=== PATIENT | female | born 1960 | race Caucasian/White ===

== ENCOUNTER 2016-12-27 09:34 | Observation (INO) | payer OTHER ==
[~2016-12-27] VITALS: Ht 160 cm; Wt 48.0 kg
[2016-12-27 09:57] VITALS: BP 120/75; PULSE 95; RESP 21; O2SAT 100
--- NOTE | 2016-12-27 09:57 | ED.REPORT ---
HPI-General Illness Date of Service December 27, 2016 ED Provider: The patient is a 56 year old female with history of chronic pain related to ankylosing spondylitis (currently taking 30 mg oxycodone QID), and diabetes mellitus, who presents to the emergency department complaining of worsening constipation. The patient was here this morning for a GI consultation and was sent to the emergency department for further evaluation. She has been dealing with constipation for some time now but it seems to be getting worse. She normally uses milk of magnesia once a week and Dulcolax once daily, but this regimen recently has not been working. She took Epson salts on Saturday and yesterday and was able to have small bowel movements. She tried manual disimpaction and a fleet enema yesterday and she passed some "runny stools." She still feels like there is a small piece of stool stuck. Over the last few months she has also noticed nausea, vomiting, decreased appetite, weight loss, abdominal pain, kidney pain, difficulty urinating, dizziness, chills, dry cough , generalized weakness and fatigue. The patient is unable to keep any food or liquids down. She denies fever. She has been worked up for these symptoms. She has had an abdominal CT scan that showed constipation. Nursing Notes Stated Complaint: DIZZY/FATIGUE/ABDOMINAL PAIN Nursing Notes Reviewed: Yes Allergies: Coded Allergies: guaifenesin (Verified Allergy, Severe, Shortness of Breath, 12/27/16) Penicillins (Verified Allergy, Intermediate, Rash, 12/27/16) but no itch, amoxicillin ok acetaminophen (Verified Allergy, Intermediate, Shortness of Breath, ) aspirin (Verified Allergy, Intermediate, Shortness of Breath, 12/27/16) celecoxib (Verified Allergy, Intermediate, Shortness of Breath, 12/27/16) cyclobenzaprine (Verified Allergy, Intermediate, Shortness of Breath, 12/27) fluconazole (Verified Allergy, Intermediate, Shortness of Breath, 12/27/16) hydrocodone (Verified Allergy, Intermediate, Shortness of Breath, 12/27/16) ibuprofen (Verified Allergy, Intermediate, Shortness of Breath, 12/27/16) ketorolac (Verified Allergy, Intermediate, Shortness of Breath, 12/27/16) naproxen (Verified Allergy, Intermediate, Shortness of Breath, 12/27/16) phenylpropanolamine (Verified Allergy, Intermediate, Shortness of Breath, 12/27/16) propoxyphene (Verified Allergy, Intermediate, Nausea, 12/27/16) General Time Seen by MD: 09:56 Chief Complaint Vomiting, Other (nausea) Hx Obtained From: Patient Arrived By: Walk-in Sudden in Onset?: No Onset Occurred: More than a week ago... 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 Barakat Past Medical History Ankylosing spondylitis Chronic pain Diabetes mellitus Family History Noncontributory Smoking History Never Smoker Social History Alcohol Use: Denies alcohol use Drug Use: Denies drug use Ambulatory Status Independent Review of Systems Full Review of Systems Constitutional: Reports: Chills, Fatigue, Recent wt loss, Weakness - generalized, Denies: Fever Respiratory: Reports: Non-productive cough GI: Reports: Abdominal pain, Anorexia, Constipation, Nausea, Vomiting Female: Reports: Flank pain Musculoskeletal: Reports: Back pain Neurologic: Reports: Dizziness, Weakness Complete sys rev & neg: except as marked. Physical Exam Vital Signs Vital Signs Date Time Temp Pulse Resp B/P Pulse Ox O2 Delivery O2 Flow Rate FiO2 12/27/16 13:36 87 16 140/77 100 Room Air 12/27/16 12:01 36.7 85 22 140/77 100 Room Air 12/27/16 09:57 37.4 95 21 120/75 100 Room Air Initial VS: Reviewed Head / Eyes: Atraumatic, Normocephalic, PERRL Neck: Supple, Non-tender, Full range of motion Respiratory: Breath sounds normal, Clear to auscultation, No respiratory distress Lymphatic: No lymphadenopathy Extremities: Vascular intact, Neuro intact, No swelling, No tenderness Skin: Warm, Dry, No cyanosis Neurologic: Alert, Oriented, Nonfocal Psychiatric: Mood/affect normal, Behavior normal, Normal thought content General/Constitutional: Awake, Alert, Cooperative Appearance / Presentation: Positive: Cachectic, In pain, Pale ENT: Atraumatic, Airway patent, Mucous membranes moist Cardiovascular: Regular rhythm, Heart sounds NL, No gallop, No murmurs, No rubs , Cap refill not delayed, Peripheral circulation NL, Pulses = bilaterally Her heart rate jumps up 30 points just moving around in bed. Abdomen: Atraumatic, Soft, No guarding, No rebound, No distention, No hernia, No palpable mass, No pulsatile mass Tenderness/Guarding/Rebound: Positive: Tender diffuse Bowel Sounds / Distention: Positive: Bowel sounds hypoactive Back: Full range of motion Flank / Spine / Paraspinal: Positive: Flank tender bilateral She is not tender at T12. Rectum / Perineum: Atraumatic, No gross blood, No fecal impaction Interpretation & Diagnostics 11/08 ABD US that showed a normal gallbladder. 11/30/2016 CT ABD PELVIS W/ CONTRAST: 1. Moderate left hydronephrosis. 2. Large amount of colonic stool. 3. Normal appendix. 4. Indeterminate left adrenal nodule, which could be further assessed with adrenal protocol MRI, if clinically indicated. 5. Diffuse fatty atrophy of the pancreas. 11/30 she had a HIDA scan that showed decreased gallbladder ejection fraction. 12/03/2016 CT KUB: 1. Small nonobstructing right inferior renal calculus. No additional renal or ureteral calculi are present. No hydronephrosis is evident. Small parapelvic cysts on the left are noted. 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 3. T12 compression deformity is age indeterminate, but appears to be acute or subacute. The need for dedicated MR imaging of the spine may be determined clinically. 4. Degenerative changes and bony fusion of the imaged spine are suggestive of ankylosing spondylitis and clinical correlation is recommended. 5. Constipation. No bowel obstruction. 6. Small hiatal hernia. 7. Dense fluid within the gallbladder may be related to gallbladder sludge. Lab Results Interpretation Result Diagram: 12/27/16 1100 12/27/16 1055 Test 12/27/16 10:55 12/27/16 11:00 12/27/16 11:02 12/27/16 13:04 Sodium Level 135mEq/L (134-144) Potassium Level 3.5mEq/L (3.5-5.2) Chloride Level 93mEq/L (97-108) Carbon Dioxide Level 24mmol/L (18-29) Blood Urea Nitrogen 5mg/dL (6-24) Creatinine 0.41mg/dL (0.57-1.00) Estimat Glomerular Filtration Rate 230mL/min (>59) Glucose Level 155mg/dL (60-99) Lactic Acid Level 1.1mmol/L (0.4-2.0) Calcium Level 9.4mg/dL (8.5-10.1) Magnesium Level 1.9mg/dL (1.6-2.6) Total Bilirubin 0.2mg/dL (0.0-1.2) Aspartate Amino Transf (AST/SGOT) 14U/L (0-50) Alanine Aminotransferase (ALT/SGPT) 12U/L (0-32) Alkaline Phosphatase 86U/L (25-150) Total Protein 7.4g/dL (6.4-8.4) Albumin 4.2g/dL (3.4-5.0) Lipase 7U/L (13-60) Thyroid Stimulating Hormone (TSH) 0.753uIU/mL (0.450-4.500) Free Thyroxine 1.27ng/dL (0.82-1.77) White Blood Count 6.2th/mm3 (3.8-10.1) Red Blood Count 4.20mil/mm3 (3.90-5.20) Hemoglobin 12.2g/dL (12.0-15.6) Hematocrit 33.9% (35.0-46.0) Mean Corpuscular Volume 80.7fL (81-100) Mean Corpuscular Hemoglobin 29.0pg (27.0-35.0) Mean Corpuscular Hemoglobin Concent 36.0% (32.0-37.0) Red Cell Distribution Width 13.2% (12.3-15.4) Platelet Count 337bil/L (150-400) Neutrophils (%) (Auto) 75.8% (40-74) Lymphocytes (%) (Auto) 18.0% (14-46) Monocytes (%) (Auto) 5.5% (4-12) Eosinophils (%) (Auto) 0.3% (0-5) Basophils (%) (Auto) 0.2% (0-3) Urine Color Yellow (YELLOW) Urine Appearance Hazy (CLEAR,HAZY) Urine pH 5.0 (5.0-8.0) Urine Specific [place] 1.030 (1.003-1.035) Urine Protein Tracemg/dL (NEG,TRACE) Urine Glucose (UA) Negativemg/dL (NEGATIVE) Urine Ketones 40mg/dL (NEGATIVE) Urine Occult Blood Negative (NEGATIVE) Urine Nitrite Negative (NEGATIVE) Urine Bilirubin Negative (NEGATIVE) Urine Urobilinogen Normalmg/dL (NORMAL) Urine Leukocyte Esterase Negative (NEGATIVE) Urine RBC 0-2/hpf (0-2) Urine WBC 0-5/hpf (0-5) Urine Epithelial Cells Occasional/hpf (NONE-MOD) Urine Crystals None seen (NONE SEEN) Urine Bacteria Few/hpf (NONE-FEW) Urine Hyaline Casts 5/20/lpf (NONE) Urine Granular Casts None seen (NONE SEEN) Urine Waxy Casts None seen (NONE SEEN) Urine Red Blood Cell Casts None seen (NONE SEEN) Urine White Blood Cell Casts None seen (NONE SEEN) Urine Mucus Present (None Seen) Urine Trichomonas None seen (NONE SEEN) Urine Yeast None (NONE SEEN) Urinalysis Comment None Urine Culture Reflexed Not indicated Hold Urine Received (Received) ECG Interpretation ECG Interpretation: Sinus rhythm with a rate of 78 Normal EKG Time: 11:11 Interpreted by: ED physician X-Ray Abdominal Interpretation IMPRESSION: 1. Nonspecific bowel gas pattern with a few scattered small bowel air-fluid levels but with gas demonstrated throughout the colon including the rectum. The findings may represent a mild ileus or gastroenteritis. Dictated by: Yeyo Adams M.D. on 12/27/2016 at 11:16 Interpretation / Wet Read by: Interpret - Radiologist Re-Eval/Medical Decision Med Decision/Clinical Course 56-year-old woman presents with abdominal pain increasing for the last 4 months. Initially it was constipation has had 2 CT scans abdominal films and a HIDA scan as well as an ultrasound done [facility]. Ultrasound was normal HIDA scan suggested low functioning gallbladder with an ejection fraction of 35%. CT scans showed some mild hydronephrosis but no masses or other significant findings she did have quite a bit of stool has since taken appropriate measures and x-rays today do not indicate significant stool. She does remain in dramatic pain in the costovertebral angles as well as the abdomen however she does not have rebound or guarding. Today she is significantly orthostatic her heart rate is 80 laying down it goes up into the 120 range simply moving up to the bed initially. After a liter of fluid, resting heart rate is down to 70 per goes up to 110 getting up to bedside commode. We will obtain urine and stool cultures. Admit to the hospitalists with diagnosis of abdominal pain dehydration and GI consult. As she has had [address] scans within the last month is are not repeated today Source of Hx: Old records Time of Eval: 12:44 Patient Status: Condition unchanged Re-Evaluation/Progress Note: Patient remains significantly tender throughout her entire abdomen again no rebound or guarding. She did have CT scans within the last month done over at [facility] but did not suggest underlying severe pathology. Acute abdominal series today does not suggest that she is constipated. She does continue to have significant pain. She remains significantly tachycardic. She has had a total of 3 mg of Dilaudid at this point and that has helped minimally. On the fact that it had minimal effect suggests that this is not acute narcotic withdrawal. With her continued weight loss estimated at 5-8 pounds in the last few weeks (4-8% of total body weight), persistent nausea that has not been controlled with Zofran, persistent tachycardia, and persistent diarrhea, I would like to admit her to the hospital for continued hydration and pain control and additional GI workup. Consultation #1: Referral / Consult Name: Bob Barakat MD Call Returned at: 12:47 Pathologist: Will see patient Note: Dr Barakat findings concerns. As a GI consult as an outpatient was an expert of her workup will ask that he consult now that she is being admitted and he agrees. Consultation #2: Referral / Consult Name: Luis Miguel Loredo MD Consulted With: Hospitalist Requested Call at: 14:10 Call Returned at: 14:25 Pathologist: Will see patient, Agrees with eval, Agrees with plan, Accepts admit Counseled Regarding: Diagnosis, Lab results, Need for admission Discharge & Departure Primary Impression: Abdominal pain Abdominal location: generalized Qualified Code: R10.84 - Generalized abdominal pain Additional Impressions: Diarrhea Diarrhea type: unspecified type Qualified Code: R19.7 - Diarrhea, unspecified Orthostasis Disposition: ADMITTED TO HOSPITAL Discharge Condition All VS Reviewed: Yes Condition: Stable Referrals: Bob Olvera MD (PCP) Bob Barakat MD Scribe Attestation Portions of this note were transcribed by Justa Cortés. I, Dr. Wilson personally performed the history, physical exam and medical decision-making; I reviewed and confirmed the accuracy of the information in the transcribed note. Signed by: Yamile Kincaid, 12/27/2016 at 1435. copies to: Bbo Barakat MD; Bob Olvera MD, Shawna L MD December 27, 2016 09:57 Justa Cortés December 27, 2016 10:15
[2016-12-27] MEDS ORDERED: HYDROmorphone 1 mg/mL Inj IVPUSH ONE ×2 (10:45→12:55)
[2016-12-27] MEDS ORDERED: Ondansetron 2 mg/mL 2 mL Inj IVPUSH ONE (10:45)
[2016-12-27] MEDS ORDERED: 0.9% Sodium Chloride 1,000 ML IV ONE ×3 (10:45→12:54)
[2016-12-27 11:07] LABS: BASOPHILS % (AUTO) 0.2 % (0-3); EOSINOPHILS % (AUTO) 0.3 % (0-5); MONOCYTES % (AUTO) 5.5 % (4-12); Mean Corpuscular Volume 80.7 fL (81-100); NEUTROPHILS % (AUTO) 75.8 % (40-74); Platelet Count 337 bil/L (150-400)
[2016-12-27 11:34] LABS: APPEARANCE,URINE HAZY (CLEAR,HAZY); COLOR,URINE YELLOW (YELLOW)
[2016-12-27 11:35] LABS: OCCULT BLOOD,URINE NEGATIVE (NEGATIVE); UROBILINOGEN,URINE NORMAL (NORMAL)
[2016-12-27 11:41] LABS: Magnesium 1.9 mg/dL (1.6-2.6)
[2016-12-27] MEDS: HYDROmorphone 1 mg/mL Inj IVPUSH PRN ×3 (11:58→23:59)
[2016-12-27 12:01] VITALS: BP 140/77; PULSE 85; RESP 22; O2SAT 100
--- NOTE | 2016-12-27 12:20 | DRSVH ---
PROCEDURE: X-RAY ACUTE ABDOMINAL SERIES ([id number]) INDICATIONS: abd pain TECHNIQUE: One view chest and two views of the abdomen were acquired. COMPARISON: None. FINDINGS: Surgical changes and devices: None. Chest: Lungs are clear. Heart size is normal. No pleural effusions. No pneumoperitoneum. Abdomen: Bowel gas pattern is nonspecific, with gas demonstrated in small and large bowel loops incl uding the rectum. There are a few scattered small bowel air-fluid levels. No suspicious calcificati ons. Bones: No suspicious bony lesions. IMPRESSION: 1. Nonspecific bowel gas pattern with a few scattered small bowel air-fluid levels but with gas demo nstrated throughout the colon including the rectum. The findings may represent a mild ileus or gastr oenteritis. Dictated by: Yeyo Adams M.D. on 12/27/2016 at 11:16 Approved by: Yeyo Adams M.D. on 12/27/2016 at 11:18
[2016-12-27] MEDS ORDERED: HYDROmorphone 1 mg/mL Inj IVPUSH PRN (12:55)
[2016-12-27] MEDS: Promethazine Inj 50 MG in 0.9% Sodium Chloride-Pha MIX 100 ML IV ONE ×2 (13:02→13:22)
[2016-12-27 13:36] VITALS: BP 140/77; PULSE 87; RESP 16; O2SAT 100
[2016-12-27] MEDS ORDERED: 0.9% Sodium Chloride 1,000 ML IV SCH (14:32)
[2016-12-27] MEDS ORDERED: Alum-Mag Hydrox-Simeth 30 mL Suspension PO PRN ×2 (14:35→14:50)
[2016-12-27] MEDS ORDERED: Ondansetron 2 mg/mL 2 mL Inj IVPUSH PRN (14:35)
[2016-12-27] MEDS ORDERED: Polyethylene Glycol (PEG) 17 Gm Powder PO PRN (14:50)
--- NOTE | 2016-12-27 14:52 | PCM.HPMED ---
Subjective Date of Service December 27, 2016 Primary Provider: Admitting Physician: Luis Miguel Loredo MD Primary Care Physician: Bob Olvera MD Attending Physician: Luis Miguel Loredo MD Admit Status: From the Emergency Department, 23-Hour Observation Chief Complaint: Progressively worsening abdominal pain/4 months progressively worsening constipation/4 month History of Present Illness: 56-year-old lady is possible medical history of chronic back pain due to ankylosing spondylitis on oxycodone, type II diabetes, fibromyalgia was transferred to the emergency room from GI clinic after she presented with Progressively worsening abdominal pain and progressively worsening constipation of 4 month. Patient states she has been dealing with constipation her whole life but has been progressively worsening for the last 4 month. She has bowel movements 2-3 times per week with the help of laxatives but sometimes stool is very hard and she disimpacts manually using disposable gloves. She sometimes goes 2 weeks without bowel movement. She had 1 large bowel movement last Saturday and on small bowel movement yesterday. She also states that she has progressively worsening generalized abdominal pain for the last 4 months. Pain is dull aching and diffuse. She states pain is 100 out of 10 . She has on and off nausea and vomiting. Denies fever. Last colonoscopy 10 years ago and reportedly unremarkable She underwent workup at [facility] with CT scan which is unrevealing except constipation. She was referred Dr. Barakat for evaluation and colonoscopy. She came to his office today and was in so much pain and transferred to emergency room. ED Course: In pain, vitals unremarkable. Labs unremarkable.Abd XR Nonspecific bowel gas pattern with a few scattered small bowel air-fluid levels but with gas demonstrated throughout the colon including the rectum Review of Systems: A comprehensive review of systems performed, pertinent positives and negatives included in history of present illness. Allergies Coded Allergies: guaifenesin (Verified Allergy, Severe, Shortness of Breath, 12/27/16) Penicillins (Verified Allergy, Intermediate, Rash, 12/27/16) but no itch, amoxicillin ok acetaminophen (Verified Allergy, Intermediate, Shortness of Breath, ) aspirin (Verified Allergy, Intermediate, Shortness of Breath, 12/27/16) celecoxib (Verified Allergy, Intermediate, Shortness of Breath, 12/27/16) cyclobenzaprine (Verified Allergy, Intermediate, Shortness of Breath, 12/27) fluconazole (Verified Allergy, Intermediate, Shortness of Breath, 12/27/16) hydrocodone (Verified Allergy, Intermediate, Shortness of Breath, 12/27/16) ibuprofen (Verified Allergy, Intermediate, Shortness of Breath, 12/27/16) ketorolac (Verified Allergy, Intermediate, Shortness of Breath, 12/27/16) naproxen (Verified Allergy, Intermediate, Shortness of Breath, 12/27/16) phenylpropanolamine (Verified Allergy, Intermediate, Shortness of Breath, 12/27/16) propoxyphene (Verified Allergy, Intermediate, Nausea, 12/27/16) Home Medications Oxycodone 30 mg by mouth 4 times a day Multiple laxatives and stool softeners PMH chronic back pain due to ankylosing spondylitis on oxycodone, type II diabetes, she does not take medications regularly but she states she takes insulin as needed usually 1-2 times a week fibromyalgia Surgical History section 4 Laparoscopy for pelvic cyst Family History Reviewed and unremarkable Social History Hx Alcohol Use: No Hx Substance Use: No Smoking Status: Never Smoker Exam Vital Signs Vital Sign - Last Date Time Temp Pulse Resp B/P Pulse Ox O2 Delivery O2 Flow Rate FiO2 12/27/16 13:36 87 16 140/77 100 Room Air 12/27/16 12:01 36.7 Exam Gen. patient is lying comfortably in hospital bed HEENT: Head is normocephalic atraumatic, Pupils equal and reactive, extraocular movements intact, Lungs clear to auscultation bilaterally Heart regular rate and rhythm without murmurs gallops or rubs Abdomen mild diffuse tenderness, normoactive BS without hepatosplenomegaly, rectal exam deferred Extremities pulses are present dorsalis pedis posterior tibialis and radial. tSkin is warm and dry there are no rashes, Psych alert and oriented to person place and time Neuro cranial nerves II through XII are grossly intact Lymph: There is no lymphadenopathy appreciated in the cervical supra infraclavicular regions : no martinez Lab and Diagnostics Result Diagram: 12/27/16 1100 12/27/16 1055 X-Rays, CTs and MRIs 11/08 ABD US that showed a normal gallbladder. 11/30/2016 CT ABD PELVIS W/ CONTRAST: 1. Moderate left hydronephrosis. 2. Large amount of colonic stool. 3. Normal appendix. 4. Indeterminate left adrenal nodule, which could be further assessed with adrenal protocol MRI, if clinically indicated. 5. Diffuse fatty atrophy of the pancreas. 11/30 she had a HIDA scan that showed decreased gallbladder ejection fraction. 12/03/2016 CT KUB: 1. Small nonobstructing right inferior renal calculus. No additional renal or ureteral calculi are present. No hydronephrosis is evident. Small parapelvic cysts on the left are noted. 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 3. T12 compression deformity is age indeterminate, but appears to be acute or subacute. The need for dedicated MR imaging of the spine may be determined clinically. 4. Degenerative changes and bony fusion of the imaged spine are suggestive of ankylosing spondylitis and clinical correlation is recommended. 5. Constipation. No bowel obstruction. 6. Small hiatal hernia. 7. Dense fluid within the gallbladder may be related to gallbladder sludge. PROCEDURE: X-RAY ACUTE ABDOMINAL SERIES ([id number]) INDICATIONS: abd pain TECHNIQUE: One view chest and two views of the abdomen were acquired. COMPARISON: None. FINDINGS: Surgical changes and devices: None. Chest: Lungs are clear. Heart size is normal. No pleural effusions. No pneumoperitoneum. Abdomen: Bowel gas pattern is nonspecific, with gas demonstrated in small and large bowel loops including the rectum. There are a few scattered small bowel air-fluid levels. No suspicious calcifications. Bones: No suspicious bony lesions. IMPRESSION: 1. Nonspecific bowel gas pattern with a few scattered small bowel air-fluid levels but with gas demonstrated throughout the colon including the rectum. The findings may represent a mild ileus or gastroenteritis. Dictated by: Yeyo Adams M.D. on 12/27/2016 at 11:16 Assessment & Plan 56-year-old lady is possible medical history of chronic back pain due to ankylosing spondylitis on oxycodone, type II diabetes, fibromyalgia was transferred to the emergency room from GI clinic after she presented with Progressively worsening abdominal pain and progressively worsening constipation of 4 month. # Acute on chronic constipation and abdominal pain -Due to narcotics -Dr Barakat on board -colonoscopy and endoscopy tomorrow. Bowel prep overnight -Pain control with morphine #History of ankylosing spondylitis, stable # history of fibromyalgia, stable Observation status Full code Possible discharged tomorrow copies to: Bob Olvera MD, Melaku MD December 27, 2016 14:52
[2016-12-27] MEDS: Ondansetron 2 mg/mL 2 mL Inj IVPUSH PRN ×2 (15:34→19:43)
[2016-12-27] MEDS ORDERED: PEG/Electrolytes 4,000 mL Solution PO ONE (16:00)
[2016-12-27] MEDS ORDERED: OXYC-474 PO (16:06)
[2016-12-27] MEDS ORDERED: SOMA350 PO (16:08)
[2016-12-27] MEDS ORDERED: INSU100I30 SQ (16:08)
[2016-12-27] MEDS ORDERED: DOCU250C2 PO ×2 (16:08)
[2016-12-27] MEDS ORDERED: OXYC30TA48 PO (16:08)
[2016-12-27] MEDS ORDERED: KEN1O TOP (16:09)
[2016-12-27] MEDS ORDERED: CLOT15CR66 TP (16:10)
[2016-12-27] MEDS ORDERED: ASCO100089 PO (16:11)
[2016-12-27] MEDS ORDERED: MAGN454C PO (16:13)
--- NOTE | 2016-12-27 16:25 | CONS ---
[address] [address] CONSULTATION REPORT PATIENT: FACUNDO GUEVARA : 1960 MR#: [id number] ADMIT: 12/27/2016 JOB ID: [id number] DATE OF SERVICE: 12/27/2016 GASTROENTEROLOGY CONSULTATION: REASON FOR CONSULTATION: Constipation and abdominal pain. HISTORY OF PRESENT ILLNESS: A 56-year-old female with a history of ankylosing spondylitis on narcs as an outpatient, diabetes who presents for consultation for diffuse abdominal pain and constipation for the past four months. The patient was admitted here to the hospital today for worsening constipation and abdominal pain. The patient states that she takes one pill of oxycodone four times a day. The patient never had an EGD but had a colonoscopy 10 years ago which was normal. I have no records. The patient does have a family history of colon cancer in maternal grandmother but no family history of celiac disease or inflammatory bowel disease. The patient states that she has diffuse abdominal pain, particularly in the epigastric region, 10/10, sharp, radiating to her back, constant, no change with food. The patient denies any NSAID use. The patient states her bowel movement normally in one time per day. Currently her bowel movements are one time every 14 days. The patient takes Milk of Magnesia as needed. In the past she has tried manual distal disimpaction and a Fleet enema which did not help relieve her constipation. The patient denies rectal bleeding, nausea, vomiting, hematemesis, or unintentional weight loss. PAST MEDICAL HISTORY: As stated above. PAST SURGERIES: None. ALLERGIES: GUAIFENESIN, PENICILLIN, ACETAMINOPHEN, ASPIRIN, CELECOXIB, CYCLOBENZAPRINE, FLUCONAZOLE, HYDROCODONE, IBUPROFEN, NAPROSYN, PHENYLPROPANOLAMINE, . MEDICATIONS AT HOME: Oxycodone 1 pill four times a day. SOCIAL HISTORY: Denies smoking, alcohol or drugs. FAMILY HISTORY: Positive for colon cancer maternal grandmother but no inflammatory bowel disease or celiac disease. REVIEW OF SYSTEMS: Denies headache, blurred vision, nausea, vomiting, chest pain, shortness of breath. Positive for abdominal pain. No skin rashes or joint pain. PHYSICAL EXAMINATION: Vital signs upon presentation: Temperature is 37.4, pulse 95, blood pressure 120/75, respiratory rate 22, satting 100% room air. General: In no acute distress. Head: No scars. Eyes: Anicteric. Throat: Supple. Lungs: Clear to auscultation bilaterally. Cardiovascular: Regular rate. Abdomen: Soft, nondistended. Positive diffuse pain to palpation. Normoactive bowel sounds. Extremities: No cyanosis, clubbing or edema. LABORATORIES: White blood cell count 6.2, hemoglobin 12.2, hematocrit 33.9, platelet count of 337. Sodium 135, potassium 3.5, chloride 93, bicarbonate 24, BUN 5, creatinine 0.41. Glucose 155. Lactic acid 1.1. Calcium 9.4, magnesium 1.9. Total bili 0.2. AST 14, ALT 12, alk phos 86. Total protein 7.4, albumin 4.2, lipase 7. EUA is negative for UGI. The patient had an abdominal ultrasound on November 06 which showed normal gallbladder. On November 30, 2016, CT of the abdomen and pelvis with contrast showed moderate left hydronephrosis, large amount of colonic stool, normal appendix, intermittent left adrenal nodule, diffuse fatty atrophy of the pancreas. November 30, 2016 HIDA scan showed decreased gallbladder ejection fraction per report. ASSESSMENT AND PLAN: A 56-year-old female with a history of ankylosing spondylitis on narcotics. She had diffuse abdominal pain and constipation. Differential diagnosis includes chronic constipation which is most likely in this patient given the fact that the patient is not on a bowel regimen on narcotics as an outpatient versus malignancy versus celiac disease versus thyroid disease. RECOMMENDATIONS: 1. GoLYTELY prep tonight. 2. EGD and colonoscopy with anesthesia given the chronic narcotic use. 3. Please check a celiac panel, IgA levels, TSH and free T4. 4. The patient will need to be on a bowel regimen such as MiraLAX 17 g by mouth once a day. Can titrate up to four times a day with a goal bowel movement of one time per day. Will continue to follow. MTDD
[2016-12-27] MEDS: MetoCLOpramide 5 mg/mL 2 mL Inj IVPUSH PRN ×2 (16:49→23:33)
[2016-12-27 16:50] VITALS: PULSE 85
[2016-12-27] MEDS: 0.9% Sodium Chloride 1,000 ML IV SCH (17:00)
[2016-12-27 18:20] VITALS: BP 146/86; PULSE 84; RESP 18; O2SAT 99
--- NOTE | 2016-12-27 18:34 | NUR ---
NAUSEA/ABDOMINAL PAIN Admitted from ER with Abdominal pain and nausea. Reported pain is like a tight big rubber band around her belly and back under her ribs, constant 9/10 sharp pain. Obtained order for prn Morphine and prn Reglan with reported relief of symptoms.
--- NOTE | 2016-12-27 18:50 | NUR ---
Admit Pt admitted to [facility] at 1450 via stretcher from ED. Pt ambulated to bed w/o difficulty. Pt A&Ox3, very overwhelmed by situation, also c/o severe nausea and pain. Otherwise pt oriented to room and call light, non skid socks for safety.
[2016-12-27 22:00] VITALS: BP 164/88; PULSE 80; RESP 22; O2SAT 99
[2016-12-28] VITALS (10 sets, daily range): BP systolic 130–168; BP diastolic 76–99; PULSE 74–90; RESP 14–20; O2SAT 96–100
[2016-12-28] MEDS: 0.9% Sodium Chloride 1,000 ML IV SCH ×3 (00:47→20:47)
[2016-12-28] MEDS: HYDROmorphone 1 mg/mL Inj IVPUSH PRN ×7 (02:58→22:15)
--- NOTE | 2016-12-28 04:24 | NUR ---
Pain/nausea medicated w/prn dose of morphine patient claimed not effect obtained 1x extra dose and increased frequency still claimed not touching it obtained order for Dilaudid which was much more effective in managing pain continued alternating Reglan and Zofran for nausea
[2016-12-28] MEDS: Ondansetron 2 mg/mL 2 mL Inj IVPUSH PRN ×5 (04:36→19:46)
[2016-12-28] MEDS ORDERED: HYDROmorphone 1 mg/mL Inj IVPUSH PRN (05:35)
[2016-12-28] MEDS: MetoCLOpramide 5 mg/mL 2 mL Inj IVPUSH PRN ×3 (05:38→17:42)
[2016-12-28] MEDS ORDERED: Lactated Ringer's 1,000 ML IV ONE (06:00)
[2016-12-28 06:42] LABS: BASOPHILS % (AUTO) 0.3 % (0-3); EOSINOPHILS % (AUTO) 0.7 % (0-5); MONOCYTES % (AUTO) 4.8 % (4-12); Mean Corpuscular Hemoglobin 29.1 pg (27.0-35.0); Mean Corpuscular Volume 80.8 fL (81-100); Platelet Count 340 bil/L (150-400)
[2016-12-28 07:07] LABS: Magnesium 1.5 mg/dL (1.6-2.6)
[2016-12-28] MEDS ORDERED: Potassium Chloride 20 mEq SR Tablet PO ONE (08:00)
[2016-12-28] MEDS ORDERED: Potassium Chloride Inj 20 MEQ in Dextrose 5% 250 ML IV ONE (08:00)
[2016-12-28] MEDS ORDERED: Magnesium Sulf 2 Gm/50mL Water 2 GM in IV Premix 1 EACH IV ONE (08:00)
[2016-12-28] MEDS ORDERED: Propofol 10,000 mCg/mL 20 mL Inj ONE (13:51)
[2016-12-28] MEDS ORDERED: fentaNYL-PF 50 mCg/mL 2 mL Inj ONE (13:51)
--- NOTE | 2016-12-28 13:54 | PCM.PNMED ---
Subjective Date of Service December 28, 2016 Subjective Continues to have abdominal pain but improved. Awaiting colonoscopy and endoscopy. Exam Vital Signs Vital Sign - Last Date Time Temp Pulse Resp B/P Pulse Ox O2 Delivery O2 Flow Rate FiO2 12/28/16 13:00 36.9 84 14 166/92 97 Room Air Intake and Output 12/27/16 12/27/16 12/28/16 Cumulative From/Thru 15:00 23:00 07:00 12/27/16 09:57 - 12/28/16 06:19 Intake Total 3000 ml 1160 ml 3756 ml 7916 ml Balance 3000 ml 1160 ml 3756 ml 7916 ml Intake Oral 960 ml 2500 ml 3460 ml IV Total 3000 ml 200 ml 1256 ml 4456 ml # Voids 1 4 5 # Bowel Movements 8 8 Exam Gen. patient is lying comfortably in hospital bed HEENT: Head is normocephalic atraumatic, Pupils equal and reactive, extraocular movements intact, Lungs clear to auscultation bilaterally Heart regular rate and rhythm without murmurs gallops or rubs Abdomen mild diffuse tenderness, normoactive BS without hepatosplenomegaly, rectal exam deferred Extremities pulses are present dorsalis pedis posterior tibialis and radial. tSkin is warm and dry there are no rashes, Psych alert and oriented to person place and time Neuro cranial nerves II through XII are grossly intact Lymph: There is no lymphadenopathy appreciated in the cervical supra infraclavicular regions : no martinez IVs and Medications Medications Reviewed: Medications were reviewed in detail Lab and Diagnostics Result Diagram: 12/28/16 0620 12/28/16 0620 X-Rays, CTs and MRIs 11/08 ABD US that showed a normal gallbladder. 11/30/2016 CT ABD PELVIS W/ CONTRAST: 1. Moderate left hydronephrosis. 2. Large amount of colonic stool. 3. Normal appendix. 4. Indeterminate left adrenal nodule, which could be further assessed with adrenal protocol MRI, if clinically indicated. 5. Diffuse fatty atrophy of the pancreas. 11/30 she had a HIDA scan that showed decreased gallbladder ejection fraction. 12/03/2016 CT KUB: 1. Small nonobstructing right inferior renal calculus. No additional renal or ureteral calculi are present. No hydronephrosis is evident. Small parapelvic cysts on the left are noted. 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 3. T12 compression deformity is age indeterminate, but appears to be acute or subacute. The need for dedicated MR imaging of the spine may be determined clinically. 4. Degenerative changes and bony fusion of the imaged spine are suggestive of ankylosing spondylitis and clinical correlation is recommended. 5. Constipation. No bowel obstruction. 6. Small hiatal hernia. 7. Dense fluid within the gallbladder may be related to gallbladder sludge. PROCEDURE: X-RAY ACUTE ABDOMINAL SERIES ([id number]) INDICATIONS: abd pain TECHNIQUE: One view chest and two views of the abdomen were acquired. COMPARISON: None. FINDINGS: Surgical changes and devices: None. Chest: Lungs are clear. Heart size is normal. No pleural effusions. No pneumoperitoneum. Abdomen: Bowel gas pattern is nonspecific, with gas demonstrated in small and large bowel loops including the rectum. There are a few scattered small bowel air-fluid levels. No suspicious calcifications. Bones: No suspicious bony lesions. IMPRESSION: 1. Nonspecific bowel gas pattern with a few scattered small bowel air-fluid levels but with gas demonstrated throughout the colon including the rectum. The findings may represent a mild ileus or gastroenteritis. Dictated by: Yeyo Adams M.D. on 12/27/2016 at 11:16 Assessment & Plan 56-year-old lady is possible medical history of chronic back pain due to ankylosing spondylitis on oxycodone, type II diabetes, fibromyalgia was transferred to the emergency room from GI clinic after she presented with Progressively worsening abdominal pain and progressively worsening constipation of 4 month. # Acute on chronic constipation and abdominal pain -Due to narcotics use with out appropriate bowel regimen -Dr Barakat on board -colonoscopy and endoscopy later today . -Dr Barakat considering adding Linzes outpatient to her regimen if no response to regular bowel regimen -Pain control with morphine #History of ankylosing spondylitis, stable # history of fibromyalgia, stable Observation status Full code Possible discharged tomorrow VTE Mechanical Devices: Venous Foot Pump Luis Miguel Loredo MD December 28, 2016 13:54
--- NOTE | 2016-12-28 14:13 | NUR ---
Bowel prep/Pain/Off floor Pt was able to finish all of the bowel prep, stool was much clearer. Endo has been kept informed, and pt left for endoscopy at 1345. Pt has been in constant 10/10 pain otherwise, been giving dilaudid q3 w/ no relief per patient. Also zofran and reglan around the clock w/ pt stating no relief.
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
[2016-12-28] MEDS ORDERED: Lactated Ringer's 500 ML IV PRN (15:21)
[2016-12-28] MEDS ORDERED: Lactated Ringer's 1,000 ML IV SCH (15:21)
[2016-12-28] MEDS ORDERED: Atropine 0.4 mg/mL Inj IVPUSH PRN (15:25)
[2016-12-28] MEDS ORDERED: MetoCLOpramide 5 mg/mL 2 mL Inj IVPUSH PRN (15:25)
--- NOTE | 2016-12-28 15:41 | PCM.ANEP1 ---
Post Anesthesia PACU Phase 1 Assessment Vital Signs Vital Signs Date Time Temp Pulse Resp B/P Pulse Ox O2 Delivery O2 Flow Rate FiO2 12/28/16 13:00 36.9 84 14 166/92 97 Room Air 12/28/16 08:33 36.7 77 20 160/88 96 Room Air 12/28/16 08:00 77 Anesthetic Administered: MAC Level of Alertness: Awake, talking CONTRERAS's with Equal Strength: Yes Pain: Yes Pain Scale Score: 10 Nausea or Vomiting: Yes CV Function & Hydration Stable: Yes Airway Device: Oxygen Delivery: Room Air Lungs: Clear to Auscultation, Normal Air Movement Dermatome Level: Full Sensation PACU Phase 2 Assessment Complications: No Follow up Care: N/A Patient Instructions Provided: Yes Wiley Mccann MD December 28, 2016 15:41
--- NOTE | 2016-12-28 16:48 | NUR ---
Social Work: Screen D: Per EMR review, pt is a 56 year old female admitted for abdominal Pain, diarrhea. Pt is [employer] [facility] insurance. PCP is Bob Olvera MD. NOK is Claudia Early, father, . Advanced directives info provided to pt by RED CROSS EXECUTIVE DIRECTOR. Readmit score is moderate, 3/8. RED CROSS EXECUTIVE DIRECTOR met with patient at bedside to discuss dcp. Sw role explained and contact info provided. Pt lives on [address], alone. Pt is I with ADLs at baseline. Pt uses [facility] transportation. She is very concerned with how she will get home at time of discharge as [facility] is not able to schedule her a ride due to her inpatient status. Pt was brought to her GI appointment by [facility] transportation. Her GI MD instructed pt to come to the ER and was brought over via w/c by staff. As pt did not technically arrive via EMS, RED CROSS EXECUTIVE DIRECTOR is unsure if pt can use [facility] transportation home. Pt states that she has no other mode of transportation and has no funds to pay for this privately. RED CROSS EXECUTIVE DIRECTOR will discuss this with case management microsoft exchange administrator. Pt states that when transported home via [facility], they take her to the [facility], where [facility] staff provide her with a wheelchair and she is wheeled on. She then meets a rep from [id number] ([phone]) to meet her at the [facility] and provide her transport home. She will need assistance coordinating this as well. A: pt who is I with ambulation at baseline. P: Anticipate pt to discharge home, RED CROSS EXECUTIVE DIRECTOR to staff case with case management [employer] exchange administrator to discuss barriers to d/c and [facility] transport. RED CROSS EXECUTIVE DIRECTOR to continue to follow MARTINEZ Pierson
[2016-12-28] MEDS: Pantoprazole 40 mg ER24 Tablet PO SCH (16:56)
--- NOTE | 2016-12-28 18:26 | NUR ---
Back to floor Pt back from [facility] at 1600. Pt arrived A&Ox3, able to ambulate easily back to bed w/o assistance. Pt arrived in same condition as they left, c/t report 10/10 pain despite fentanyl and dilaudid being given frequently, as well as zofran and reglan continuing.
[2016-12-29] MEDS: HYDROmorphone 1 mg/mL Inj IVPUSH PRN ×5 (01:09→13:39)
[2016-12-29] MEDS: Ondansetron 2 mg/mL 2 mL Inj IVPUSH PRN ×3 (01:09→09:31)
[2016-12-29 01:25] VITALS: BP 146/85; PULSE 76; RESP 16; O2SAT 97
--- NOTE | 2016-12-29 03:11 | ENDO ---
[address] [address] ENDOSCOPY PROCEDURE PATIENT: FACUNDO GUEVARA : 1960 MR#: [id number] ADMIT: 12/27/2016 JOB ID: [id number] DATE OF SERVICE: 12/27/2016 TYPE OF OPERATION: 1. Esophagogastroduodenoscopy with biopsy. 2. Colonoscopy. PREOPERATIVE DIAGNOSES: 1. Abdominal pain. 2. Constipation. POSTOPERATIVE DIAGNOSES: 1. Mild sigmoid diverticulosis. 2. Mild distal esophagitis. 3. Mild nonerosive gastritis. ANESTHESIA: Monitored anesthesia care. COMPLICATIONS: None. BLOOD LOSS: Minimal description. DESCRIPTION OF PROCEDURE: After risks and benefits explained to the patient, informed consent was obtained. After anesthesia administered, upper endoscope was inserted into the mouth and intubated into the esophagus, stomach, second portion of duodenum. Mucosa carefully examined. After procedure was done, the scope withdrawn and procedure terminated. Colonoscope was inserted per rectum to the cecum. Mucosa carefully examined. Prep of the patient was fair to suboptimal. After procedure was done, the scope withdrawn and procedure terminated. FINDINGS: Upon inspection of the esophagus there is mild erosive distal esophagitis. Z-line located at 35 cm from incisors. Upon entering stomach, there is mild nonerosive gastritis seen. No masses, ulcers or lesions were seen. Retroflexion was normal. Duodenal bulb, first and second portion were normal. Biopsies taken from duodenum, antrum body and distal esophagus. Upon inspection of the anus, no masses, hemorrhoids, ulcers or fissures that were seen. Throughout the entire examination, there was liquid stool that was seen throughout various parts of the colon which was suctioned. There was mild sigmoid diverticulosis. No polyps or masses were seen. Retroflexion was normal. IMPRESSIONS: 1. Mild sigmoid diverticulosis. 2. Mild distal esophagitis, erosive. 3. Mild nonerosive gastritis. RECOMMENDATIONS: 1. Protonix 40 mg by mouth. 2. Await pathology results. 3. Start clear liquid diet, advance as tolerated. 4. Would recommend outpatient pain management consultation in regards to her narcotics, which may be the cause of her constipation. 5. Okay to discharge home from a GI standpoint with follow up in GI clinic. If the patient is refractory to MiraLAX, in which the patient will need to be on a good bowel regimen given on narcotics, then we can consider other medications such Linzess or Amitiza as an outpatient.
[2016-12-29 04:05] VITALS: PULSE 68
[2016-12-29 05:13] VITALS: BP 162/86; PULSE 79; RESP 16; O2SAT 99
--- NOTE | 2016-12-29 05:35 | NUR ---
Pain/Nausea Pt c/o consistent 10/10 pain with zero to little relief with q3hr dilaudid. Pt is requesting it round the clock and attempting to get it early or obtain higher doses. Reglan and Zofran round the clock as well required by patient, with no vomiting, however patient states little to no relief. Kpad being used continuously - "not hot enough" according to patient. Very frequent rounding continues.
[2016-12-29] MEDS: Pantoprazole 40 mg ER24 Tablet PO SCH (05:45)
[2016-12-29] MEDS: MetoCLOpramide 5 mg/mL 2 mL Inj IVPUSH PRN ×2 (05:45→11:50)
[2016-12-29 05:55] VITALS: PULSE 95
[2016-12-29] MEDS: 0.9% Sodium Chloride 1,000 ML IV SCH (06:10)
--- NOTE | 2016-12-29 08:27 | PCM.PNSURG ---
Subjective Date of Service: December 29, 2016 Date of Service: December 29, 2016 Visit Information: Subjective: no acute events overnight. abdominal pain same as yesterday. egd/colon yesterday. see note for full details Postop General: No Complaints Objective Vital Sign- Last 8 Hours Date Time Temp Pulse Resp B/P Pulse Ox O2 Delivery O2 Flow Rate FiO2 12/29/16 05:55 95 12/29/16 05:13 36.8 79 16 162/86 99 Room Air 12/29/16 04:05 68 12/29/16 01:25 36.9 76 16 146/85 97 Room Air Intake and Output- Last 8 Hour 12/29/16 Cumulative From/Thru 07:00 12/27/16 09:57 - 12/29/16 05:18 Intake Total 1930 ml 39416 ml Output Total 3200 ml 4500 ml Balance -1270 ml 7334 ml Intake Oral 0 ml 4060 ml IV Total 1930 ml 7774 ml Output Urine Total 3200 ml 3200 ml Stool Total 900 ml Urine/Stool Mix 400 ml # Voids 5 10 # Bowel Movements 8 General: Oriented X3 Neck: Supple Lungs: Clear to Auscultation Heart: Exam Unremarkable Abdomen: Benign, Soft, Appropriately tender, Non-distended, Normoactive bowel tones Extremities: Distal Pulses Palpable Result Diagram: 12/28/1661912/28/16619 Assessment & Plan Impression A 56-year-old female with a history of ankylosing spondylitis on narcotics. She had diffuse abdominal pain and constipation. Differential diagnosis includes chronic constipation which is most likely in this patient given the fact that the patient is not on a bowel regimen on narcotics as an outpatient versus ibs-c versus celiac disease versus thyroid disease. s/p egd/colon 12/28/16- IMPRESSIONS: 1. Mild sigmoid diverticulosis. 2. Mild distal esophagitis, erosive. 3. Mild nonerosive gastritis. RECOMMENDATIONS Post op: 1. Protonix 40 mg by mouth. 2. Await pathology results. 3. Start clear liquid diet, advance as tolerated. 4. Would recommend outpatient pain management consultation in regards to her narcotics, which may be the cause of her constipation. 5. Okay to discharge home from a GI standpoint with follow up in GI clinic. Recs: 1. f/u celiac panel, IgA levels, TSH and free T4. 2. protonix 40mg po qday 3. await bx results 4. advance diet as tolerated 5. ok to d/c home from gi standpoint 6. f/u gi clinic in 4 weeks 7. continue miralax 17g po qday. Pt needs to be on good bowel regiment given narcotic use. 8. Would recommend outpatient pain management consultation in regards to her narcotics, which may be the cause of her constipation. will sign off Problems: Bob Barakat MD December 29, 2016 08:27
--- NOTE | 2016-12-29 09:10 | PCM.DIMED ---
Discharge Instructions Date of Service December 29, 2016 Dates of Hospitalization December 27, 2016 at 14:26 Discharge Diagnosis Discharge Diagnosis # Acute on chronic constipation and abdominal pain -Due to narcotics use with out appropriate bowel regimen #History of ankylosing spondylitis, stable # history of fibromyalgia, stable Diet Discharge Diet: Other (high-fiber diet) Activity Discharge Activity: Limited until seen by PCP Call your provider Call your provider for: Fever or Chills, Shortness of breath, Bleeding, Chest pain, Vomitting, Excessive diarrhea, Weakness (unilateral) Patient Instructions Patient Instructions You were hospitalized to due to constipation secondary to pain medications without appropriate bowel regimen. You underwent endoscopy and colonoscopy which showed mild distal esophagitis and sigmoid diverticulosis. Please continue MiraLAX as prescribed. Please follow-up with pain doctor outpatient for pain medication management. Please follow-up with Dr. Barakat for additional medications like Linzes if symptoms persist. Please continue Protonix 40 mg daily. Follow-up Provider: Bob Olvera MD Follow-up with PCP in: 1 week Provider: Bob Barakat MD Follow-up in: 2 weeks Luis Miguel Loredo MD December 29, 2016 09:10
[2016-12-29 09:12] VITALS: PULSE 83
[2016-12-29] MEDS ORDERED: POLY17PO6 PO (09:12)
[2016-12-29] MEDS ORDERED: SENN-133 PO (09:12)
[2016-12-29] MEDS ORDERED: PANT40TA3 PO (09:12)
[2016-12-29] MEDS ORDERED: ONDA4TAB12 PO (09:13)
--- NOTE | 2016-12-29 09:26 | PCM.DC.MED ---
Discharge Summary Date of Service December 29, 2016 Dates of Hospitalization Date of Hospital Admission December 27, 2016 at 14:26 Date of Discharge: December 29, 2016 Providers: Admitting Physician: Luis Miguel Lopez MD Primary Care Physician: Bob Olvera MD Attending Physician: Luis Miguel Lopez MD Diagnosis at Time of Discharge Diagnosis at Time of Discharge # Acute on chronic constipation and abdominal pain -Due to narcotics use with out appropriate bowel regimen #History of ankylosing spondylitis, stable # history of fibromyalgia, stable Consultations GI Dr Barakat Procedures XRay, CTs & MRIs 11/08 ABD US that showed a normal gallbladder. 11/30/2016 CT ABD PELVIS W/ CONTRAST: 1. Moderate left hydronephrosis. 2. Large amount of colonic stool. 3. Normal appendix. 4. Indeterminate left adrenal nodule, which could be further assessed with adrenal protocol MRI, if clinically indicated. 5. Diffuse fatty atrophy of the pancreas. 11/30 she had a HIDA scan that showed decreased gallbladder ejection fraction. 12/03/2016 CT KUB: 1. Small nonobstructing right inferior renal calculus. No additional renal or ureteral calculi are present. No hydronephrosis is evident. Small parapelvic cysts on the left are noted. 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 3. T12 compression deformity is age indeterminate, but appears to be acute or subacute. The need for dedicated MR imaging of the spine may be determined clinically. 4. Degenerative changes and bony fusion of the imaged spine are suggestive of ankylosing spondylitis and clinical correlation is recommended. 5. Constipation. No bowel obstruction. 6. Small hiatal hernia. 7. Dense fluid within the gallbladder may be related to gallbladder sludge. PROCEDURE: X-RAY ACUTE ABDOMINAL SERIES ([id number]) INDICATIONS: abd pain TECHNIQUE: One view chest and two views of the abdomen were acquired. COMPARISON: None. FINDINGS: Surgical changes and devices: None. Chest: Lungs are clear. Heart size is normal. No pleural effusions. No pneumoperitoneum. Abdomen: Bowel gas pattern is nonspecific, with gas demonstrated in small and large bowel loops including the rectum. There are a few scattered small bowel air-fluid levels. No suspicious calcifications. Bones: No suspicious bony lesions. IMPRESSION: 1. Nonspecific bowel gas pattern with a few scattered small bowel air-fluid levels but with gas demonstrated throughout the colon including the rectum. The findings may represent a mild ileus or gastroenteritis. Dictated by: Yeyo Adams M.D. on 12/27/2016 at 11:16 Invasive Procedures DATE OF SERVICE: 12/27/2016 TYPE OF OPERATION: 1. Esophagogastroduodenoscopy with biopsy. 2. Colonoscopy. PREOPERATIVE DIAGNOSES: 1. Abdominal pain. 2. Constipation. POSTOPERATIVE DIAGNOSES: 1. Mild sigmoid diverticulosis. 2. Mild distal esophagitis. 3. Mild nonerosive gastritis. ANESTHESIA: Monitored anesthesia care. COMPLICATIONS: None. BLOOD LOSS: Minimal description. DESCRIPTION OF PROCEDURE: After risks and benefits explained to the patient, informed consent was obtained. After anesthesia administered, upper endoscope was inserted into the mouth and intubated into the esophagus, stomach, second portion of duodenum. Mucosa carefully examined. After procedure was done, the scope withdrawn and procedure terminated. Colonoscope was inserted per rectum to the cecum. Mucosa carefully examined. Prep of the patient was fair to suboptimal. After procedure was done, the scope withdrawn and procedure terminated. FINDINGS: Upon inspection of the esophagus there is mild erosive distal esophagitis. Z-line located at 35 cm from incisors. Upon entering stomach, there is mild nonerosive gastritis seen. No masses, ulcers or lesions were seen. Retroflexion was normal. Duodenal bulb, first and second portion were normal. Biopsies taken from duodenum, antrum body and distal esophagus. Upon inspection of the anus, no masses, hemorrhoids, ulcers or fissures that were seen. Throughout the entire examination, there was liquid stool that was seen throughout various parts of the colon which was suctioned. There was mild sigmoid diverticulosis. No polyps or masses were seen. Retroflexion was normal. IMPRESSIONS: 1. Mild sigmoid diverticulosis. 2. Mild distal esophagitis, erosive. 3. Mild nonerosive gastritis. RECOMMENDATIONS: 1. Protonix 40 mg by mouth. 2. Await pathology results. 3. Start clear liquid diet, advance as tolerated. 4. Would recommend outpatient pain management consultation in regards to her narcotics, which may be the cause of her constipation. 5. Okay to discharge home from a GI standpoint with follow up in GI clinic. If the patient is refractory to MiraLAX, in which the patient will need to be on a good bowel regimen given on narcotics, then we can consider other medications such Linzess or Amitiza as an outpatient. Bob Barakat MD 12/28/16 2823 Brief History Per HPI 56-year-old lady is possible medical history of chronic back pain due to ankylosing spondylitis on oxycodone, type II diabetes, fibromyalgia was transferred to the emergency room from GI clinic after she presented with Progressively worsening abdominal pain and progressively worsening constipation of 4 month. Patient states she has been dealing with constipation her whole life but has been progressively worsening for the last 4 month. She has bowel movements 2-3 times per week with the help of laxatives but sometimes stool is very hard and she disimpacts manually using disposable gloves. She sometimes goes 2 weeks without bowel movement. She had 1 large bowel movement last Saturday and on small bowel movement yesterday. She also states that she has progressively worsening generalized abdominal pain for the last 4 months. Pain is dull aching and diffuse. She states pain is 100 out of 10 . She has on and off nausea and vomiting. Denies fever. Last colonoscopy 10 years ago and reportedly unremarkable She underwent workup at [facility] with CT scan which is unrevealing except constipation. She was referred Dr. Barakat for evaluation and colonoscopy. She came to his office today and was in so much pain and transferred to emergency room. ED Course: In pain, vitals unremarkable. Labs unremarkable.Abd XR Nonspecific bowel gas pattern with a few scattered small bowel air-fluid levels but with gas demonstrated throughout the colon including the rectum Hospital Course 56-year-old lady is possible medical history of chronic back pain due to ankylosing spondylitis on oxycodone, type II diabetes, fibromyalgia was transferred to the emergency room from GI clinic after she presented with Progressively worsening abdominal pain and progressively worsening constipation of 4 month. # Acute on chronic constipation and abdominal pain -Due to narcotics use with out appropriate bowel regimen -Dr Barakat GI on board -colonoscopy and endoscopy show mildly distended esophagitis and nonerosive gastritis. Sigmoid diverticulosis. -Spoke with Dr Barakat . Will discharge patient on MiraLAX, senna, Colace. Recommend follow-up with pain doctor outpatient and also try to lower narcotic use. Follow up oupatient and add Linzes if no response -Prescribed Protonix 40 mg per day to -Follow-up IgA and celiac screen results alteratione # Distal mild esophagitis -Protonix as above #History of ankylosing spondylitis, stable # history of fibromyalgia, stable Discharge home Condition on discharge stable Exam Vital Signs (Last) Date Time Temp Pulse Resp B/P Pulse Ox O2 Delivery O2 Flow Rate FiO2 12/29/16 09:12 83 12/29/16 05:13 36.8 16 162/86 99 Room Air Exam Gen. patient is lying comfortably in hospital bed HEENT: Head is normocephalic atraumatic, Pupils equal and reactive, extraocular movements intact, Lungs clear to auscultation bilaterally Heart regular rate and rhythm without murmurs gallops or rubs Abdomen mild diffuse tenderness, normoactive BS without hepatosplenomegaly, rectal exam deferred Extremities pulses are present dorsalis pedis posterior tibialis and radial. tSkin is warm and dry there are no rashes, Psych alert and oriented to person place and time Neuro cranial nerves II through XII are grossly intact Lymph: There is no lymphadenopathy appreciated in the cervical supra infraclavicular regions : no martinez Test 12/27/16 10:55 12/27/16 11:02 12/27/16 13:04 12/28/16 06:20 Lactic Acid Level 1.1mmol/L (0.4-2.0) Lipase 7U/L (13-60) CA 125 Antigen 13.6U/mL (0.0-38.1) Thyroid Stimulating Hormone (TSH) 0.753uIU/mL (0.450-4.500) Free Thyroxine 1.27ng/dL (0.82-1.77) Urine Color Yellow (YELLOW) Urine Appearance Hazy (CLEAR,HAZY) Urine pH 5.0 (5.0-8.0) Urine Specific Pablo 1.030 (1.003-1.035) Urine Protein Tracemg/dL (NEG,TRACE) Urine Glucose (UA) Negativemg/dL (NEGATIVE) Urine Ketones 40mg/dL (NEGATIVE) Urine Occult Blood Negative (NEGATIVE) Urine Nitrite Negative (NEGATIVE) Urine Bilirubin Negative (NEGATIVE) Urine Urobilinogen Normalmg/dL (NORMAL) Urine Leukocyte Esterase Negative (NEGATIVE) Urine RBC 0-2/hpf (0-2) Urine WBC 0-5/hpf (0-5) Urine Epithelial Cells Occasional/hpf (NONE-MOD) Urine Crystals None seen (NONE SEEN) Urine Bacteria Few/hpf (NONE-FEW) Urine Hyaline Casts 520/lpf (NONE) Urine Granular Casts None seen (NONE SEEN) Urine Waxy Casts None seen (NONE SEEN) Urine Red Blood Cell Casts None seen (NONE SEEN) Urine White Blood Cell Casts None seen (NONE SEEN) Urine Mucus Present (None Seen) Urine Trichomonas None seen (NONE SEEN) Urine Yeast None (NONE SEEN) Urinalysis Comment None Urine Culture Reflexed Not indicated Hold Urine Received (Received) White Blood Count 5.8th/mm3 (3.8-10.1) Red Blood Count 4.22mil/mm3 (3.90-5.20) Hemoglobin 12.3g/dL (12.0-15.6) Hematocrit 34.1% (35.0-46.0) Mean Corpuscular Volume 80.8fL (81-100) Mean Corpuscular Hemoglobin 29.1pg (27.0-35.0) Mean Corpuscular Hemoglobin Concent 36.1% (32.0-37.0) Red Cell Distribution Width 13.4% (12.3-15.4) Platelet Count 340bil/L (150-400) Neutrophils (%) (Auto) 75.0% (40-74) Lymphocytes (%) (Auto) 19.2% (14-46) Monocytes (%) (Auto) 4.8% (4-12) Eosinophils (%) (Auto) 0.7% (0-5) Basophils (%) (Auto) 0.3% (0-3) Sodium Level 138mEq/L (134-144) Potassium Level 3.0mEq/L (3.5-5.2) Chloride Level 97mEq/L (97-108) Carbon Dioxide Level 20mmol/L (18-29) Blood Urea Nitrogen 2mg/dL (6-24) Creatinine 0.33mg/dL (0.57-1.00) Estimat Glomerular Filtration Rate 295mL/min (>59) Glucose Level 147mg/dL (60-99) Calcium Level 8.6mg/dL (8.5-10.1) Magnesium Level 1.5mg/dL (1.6-2.6) Total Bilirubin 0.2mg/dL (0.0-1.2) Aspartate Amino Transf (AST/SGOT) 12U/L (0-50) Alanine Aminotransferase (ALT/SGPT) 9U/L (0-32) Alkaline Phosphatase 81U/L (25-150) Total Protein 6.0g/dL (6.4-8.4) Albumin 3.6g/dL (3.4-5.0) Discharge Medications Discharge Medications Ascorbic Acid (Vitamin C) 1,000 Mg Tab.chew 1,000 MG PO DAILY (Reported) Carisoprodol (Carisoprodol) 350 Mg Tablet 350 MG PO QID (Reported) Docusate Sodium (Docusate Sodium) 250 Mg Capsule 250 MG PO HS (Reported) Insulin Glargine,Hum.rec.anlog (Basaglar Kwikpen U-100) 100 Unit/Ml (3 Ml) Insuln.pen 12 UNIT SQ QAM (Reported) HOLD FOR BG < 140 MG/DL Ondansetron ODT (Ondansetron ODT) 4 Mg Tab.rapdis 4 MG PO Q6H Prescribed by: LUIS MIGUEL LOPEZ MD Oxycodone (Roxicodone) 30 Mg Tablet 30 MG PO QID (Reported) Pantoprazole DR (Pantoprazole DR) 40 Mg Tablet.dr 40 MG PO 0630 Prescribed by: LUIS MIGUEL LOPEZ MD As needed Clotrimazole (Itch Relief) 1 % Cream..g. 1 APPLIC TP TID PRN PRN DRY SKIN PATCHES (Reported) MIX 1:1 WITH TRIAMCINOLONE Docusate Sodium (Docusate Sodium) 250 Mg Capsule 250 MG PO DAILY PRN PRN For Constipation (Reported) Magnesium Sulfate (Epsom Salt) 454 Gm Crystals 2 TBS PO WEEKLY PRN PRN For Constipation (Reported) Polyethylene Glycol 3350 (Miralax) 17 Gm Powd.pack 17 GM PO DAILY PRN PRN For Constipation Prescribed by: LUIS MIGUEL LOPEZ MD Sennosides (Senna) 8.6 Mg Tablet 17.2 MG PO BID PRN PRN For Constipation Prescribed by: LUIS MIGUEL LOPEZ MD Triamcinolone Acet (Triamcinolone Acetonide Ointment) 1 Applic/0.25 Gm Oint 1 APPLIC TOP TID PRN PRN DRY SKIN PATCHES (Reported) MIX 1:1 WITH CLOTRIMAZOLE Followup Plan Disposition: Home Discharge Diet: Other (high-fiber diet) Discharge Activity: Limited until seen by PCP Patient Instructions You were hospitalized to due to constipation secondary to pain medications without appropriate bowel regimen. You underwent endoscopy and colonoscopy which showed mild distal esophagitis and sigmoid diverticulosis. Please continue MiraLAX as prescribed. Please follow-up with pain doctor outpatient for pain medication management. Please follow-up with Dr. Barakat for additional medications like Linzes if symptoms persist. Please continue Protonix 40 mg daily. Follow-up Provider: Bob Olvera MD Follow-up with PCP in: 1 week Provider: Bob Barakat MD Follow-up in: 2 weeks copies to: Bob Barakat MD; Bob Olvera MD, Melaku MD December 29, 2016 09:26
--- NOTE | 2016-12-29 11:26 | NUR ---
"Social Work: Discharge Data: Pt is on day 2 of hospitalization. EMR reviewed. CONCESSION WORKER met with pt regarding transportation. CONCESSION WORKER called [employer] regarding if pt has transportation benefit without having come by EMS, dispatch with [employer] states that she does have this benefit. [employer] will vegetable picker pt at 2:00pm at main entrance of hospital and bring her to [place]. Pt states she [place] and [place] the 3:40pm ferry. Pt given priority boarding pass for ferry. CONCESSION WORKER faxed priority boarding pass to [id number]. Pt states she has a friend picking her up after she gets off of the ferry. No further d/c planning needs at this time. CONCESSION WORKER updated RN and pt of plan. Assessment: Pt who is independent at baseline. Plan: Pt will d/c home via taxi at 2:00pm today to [place] at 3:40pm with a friend picking her up once on [facility]. No further d/c planning needs at this time. CONCESSION WORKER will continue to follow if needs arise. MARTINEZ Rome"
[2016-12-29 11:34] VITALS: BP 157/91; PULSE 86; RESP 18; O2SAT 99
--- NOTE | 2016-12-29 13:52 | NUR ---
Discharge Patient left floor via wheelchair at 1350 to be driven to the [facility] by a taxi. All discharge information discussed with patient including follow up appointments and medications. Patient given phone number to contact dr Barakat's office for follow up appointment in 2 weeks. [facility] intact.
--- NOTE | 2017-01-02 17:08 | PATH ---
SURGICAL PATHOLOGY Attending Physician:Bob Olvera MD ( CASE STATUS: Signed Out PATIENT NAME: FACUNDO GUEVARA PID: [id number] : 1960 DATE COLLECTED:12/28/2016 00:00 SPECIMEN: 1: Duodenum, Biopsy 2: Stomach, Antrum, Biopsy 3: Gastric, Biopsy 4: Esophagus, Biopsy CLINICAL HISTORY: 1. Duodenum Biopsy 2. Gastric Antrum 3. Gastric Body 4. Distal Esophagus FINAL DIAGNOSIS: 1. Duodenum, Biopsy: Duodenal biopsy with no diagnostic abnormality. Negative for active inflammation, features of sprue, dysplasia, or malignancy. 2. Gastric Antrum, Biopsy: Portion of gastric antral and body-type mucosa with mild chronic gastritis. No definite H. pylori organisms identified by H&E stain. Negative for intestinal metaplasia, dysplasia, and malignancy. Immunohistochemistry studies pending; results will be reported as an addendum. 3. Gastric Body, Biopsy: Portions of gastric body-type mucosa with no diagnostic abnormality. No definite H. pylori organisms identified by H&E stain. Negative for intestinal metaplasia, dysplasia, and malignancy. 4. Distal Esophagus, Biopsy: Portions of squamocolumnar junctional mucosa with focal acute esophagitis. No viral cytopathic effect identified. Fungal stain pending; results will be reported as an addendum. Negative for intestinal metaplasia, dysplasia, and malignancy. ICD10: K20.9 GROSS DESCRIPTION: The specimens are received in formalin, labeled with the patient's name, and sublabeled as the following: (1) duodenum; (2) gastric antrum; (3) gastric body; (4) distal esophagus. (1) The specimen consists of multiple fragments of gonzalez-white rubbery glistening semitranslucent tissue (0.4 x 0.2 x 0.1 cm in aggregate). Section code: (1A) tissue. Specimen entirely submitted. (2) The specimen consists of multiple fragments of gonzalez-white rubbery glistening semitranslucent tissue (0.7 x 0.5 x 0.1 cm in aggregate). Section code: (2A) tissue. Specimen entirely submitted. (3) The specimen consists of multiple fragments of gonzalez-white rubbery glistening semitranslucent tissue (0.6 x 0.3 x 0.1 cm in aggregate). Section code: (3A) tissue. Specimen entirely submitted. (4) The specimen consists of multiple fragments of gonzalez-white rubbery glistening semitranslucent tissue (0.5 x 0.3 x 0.1 cm in aggregate). Section code: (4A) tissue. Specimen entirely submitted. 12/30/16 ICD-9 CODES: CPT CODES: 1: 87444 2: 70548, 64807 3: 33311 4: 87681, 41629 PROCEDURE/ADDENDA: Immunohistochemistry SPI Interpretation {Not Entered} Results-Comments Immunohistochemistry Results: 2.GASTRIC ANTRUM BIOPSY: NEGATIVE FOR HELICOBACTER PYLORI BY IMMUNOHISTOCHEMISTRY. Special Fungal Stain Result:4.DISTAL ESOPHAGUS BIOPSY: NEGATIVE FOR FUNGI BY PAS STAIN. This test was developed and its performance characteristics determined by [facility]. It has not been cleared or approved by the U. S. Food and Drug Administration. The FDA has determined that such clearance or approval is not necessary. This test is used for clinical purposes. It should not be regarded as investigational or for research. Electronically Signed Out Alexis Saxena MD Electronically Signed Out Andressa Collins MD [facility] [address], [place] [address] Technical component performed at [facility], [address], [place], [address]
[2017-01-08 09:19] LABS: Endomysial Ab IgA NEG
== END 2016-12-29 13:52 | disposition home or self-care (01) ==
LOC: SED 09:34 → MOC 14:26
PROVIDERS: ADMIT Internal Medicine; ATTEND Internal Medicine
DX: K59.00 Constipation, unspecified (principal); R10.9 Unspecified abdominal pain; K57.30 Diverticulosis of large intestine without perforation or abscess without bleeding; K29.50 Unspecified chronic gastritis without bleeding; K20.9 Esophagitis, unspecified; M45.9 Ankylosing spondylitis of unspecified sites in spine; M79.7 Fibromyalgia; M54.9 Dorsalgia, unspecified; E11.9 Type 2 diabetes mellitus without complications; Z79.891 Long term (current) use of opiate analgesic; Z79.4 Long term (current) use of insulin
CPT/HCPCS: 36415; 43239; 45378; 74022; 80053; 81000; 82784; 83516; 83520; 83605; 83690; 83735; 84439; 84443; 85025; 86304; 87040; 88305; 88312; 88342; 93005; 96361; 96374; 96375; 96376; 99285; G0378; J1170; J2250; J2270; J2405; J2550; J2765; J3010; J3480; J7030; J7120

== ENCOUNTER 2017-02-12 09:33 | Observation (INO) | payer OTHER ==
[~2017-02-12] VITALS: Ht 152.4 cm; Wt 42.7 kg
[~2017-02-12 09:33] MED LIST: ASCO100089 PO; CLOT15CR66 TP; DOCU250C2 PO; INSU100I30 SQ; KEN1O TOP; MAGN454C PO; ONDA4TAB12 PO; OXYC30TA48 PO; PANT40TA3 PO; POLY17PO6 PO; SENN-133 PO; SOMA350 PO
[2017-02-12 09:38] VITALS: BP 156/62; PULSE 74; RESP 14; O2SAT 100
[2017-02-12] MEDS ORDERED: HYDR2TAB28 PO (10:18)
[2017-02-12] MEDS ORDERED: POLY17PO6 PO (10:19)
[2017-02-12] MEDS ORDERED: MORP30TA PO (10:20)
--- NOTE | 2017-02-12 10:26 | ED.REPORT ---
HPI-Abd Pain M 40 and Over Date of Service Feb 12, 2017 ED Provider: Alexis Castanon MD Patient is a 56 year old female with a hx of HTN, chronic pain related to ankylosing spondylitis, and DM who presents to the ED via aircraft from [facility] complaining of abdominal pain onset 5 months ago. Associated symptoms include nausea, vomiting (onset last night), and constipation. Her last BM was 7 days ago and she states she has chronic constipation "since I was a baby". She denies fever, chills, dysuria, hematochezia, or any other symptoms. She was receiving steroid shots (13-14 every month) for pain and stopped without tapering in June 2016. She reports only taking 15mg of Morphine (x4 a day) and 2mg Dilaudid (x4 a day) . Her PCP is Dr. Olvera who prescribes all of her pain medications for abdominal and kidney pain. Patient was admitted to [facility] for 2 days a month an a half ago for similar symptoms. Endoscopies here and at [facility] reveal esophagitis and constipation. Nursing Notes Stated Complaint: ABDOMINAL PAIN Chief Complaint: Female Abdominal Pain Nursing Notes Reviewed: Yes Allergies: Coded Allergies: guaifenesin (Verified Allergy, Severe, Shortness of Breath, 02/12/17) Penicillins (Verified Allergy, Intermediate, Rash, 02/12/17) but no itch, amoxicillin ok acetaminophen (Verified Allergy, Intermediate, Shortness of Breath, ) aspirin (Verified Allergy, Intermediate, Shortness of Breath, 02/12/17) celecoxib (Verified Allergy, Intermediate, Shortness of Breath, 02/12/17) cyclobenzaprine (Verified Allergy, Intermediate, Shortness of Breath, 02/12) fluconazole (Verified Allergy, Intermediate, Shortness of Breath, 02/12/17) hydrocodone (Verified Allergy, Intermediate, Shortness of Breath, 02/12/17) ibuprofen (Verified Allergy, Intermediate, Shortness of Breath, 02/12/17) ketorolac (Verified Allergy, Intermediate, Shortness of Breath, 02/12/17) naproxen (Verified Allergy, Intermediate, Shortness of Breath, 02/12/17) phenylpropanolamine (Verified Allergy, Intermediate, Shortness of Breath, 02/12/17) propoxyphene (Verified Allergy, Intermediate, Nausea, 02/12/17) Scheduled Carisoprodol (Carisoprodol) 350 Mg Tablet 350 MG PO QID Docusate Sodium (Docusate Sodium) 250 Mg Capsule 250 MG PO DAILY Insulin Glargine,Hum.rec.anlog (Basaglar Kwikpen U-100) 100 Unit/Ml (3 Ml) Insuln.pen 12 UNIT SQ QAM HOLD FOR BG < 140 MG/DL Morphine Sulfate (Morphine Sulfate) 30 Mg Tablet 15 MG PO QID Polyethylene Glycol 3350 (Miralax) 17 Gm Powd.pack 17 GM PO BID Scheduled PRN Clotrimazole (Itch Relief) 1 % Cream..g. 1 APPLIC TP TID PRN PRN DRY SKIN PATCHES MIX 1:1 WITH TRIAMCINOLONE Hydromorphone (Hydromorphone) 2 Mg Tablet 2 MG PO QID PRN PRN Pain Magnesium Sulfate (Epsom Salt) 454 Gm Crystals 4 TSP PO DAILY PRN PRN For Constipation Sennosides (Senna) 8.6 Mg Tablet 17.2 MG PO BID PRN PRN For Constipation Triamcinolone Acet (Triamcinolone Acetonide Ointment) 1 Applic/0.25 Gm Oint 1 APPLIC TOP TID PRN PRN DRY SKIN PATCHES MIX 1:1 WITH CLOTRIMAZOLE General Time Seen by MD: 10:07 Chief Complaint Abdominal pain Hx Obtained From: Patient Arrived By: Ambulance Sudden in Onset?: No Onset Occurred: More than a week ago... 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 Physical Exam Initial Vital Signs Vital Signs (First) Date Time Temp Pulse Resp B/P Pulse Ox O2 Delivery O2 Flow Rate FiO2 02/12/17 09:38 36.5 74 14 156/62 100 Room Air Initial VS: Reviewed Head / Eyes: Atraumatic, Normocephalic Neck: Full range of motion Skin: Warm, Dry Neurologic: Alert, Oriented, Nonfocal Psychiatric: Mood/affect normal, Behavior normal, Normal thought content General/Constitutional: Awake, Alert Respiratory / Chest: Breath sounds NL, Breath sounds = bilat, No respiratory distress Cardiovascular: Heart rate NL, Regular rhythm, Heart sounds NL, No gallop, No murmurs, No rubs Abdomen: Atraumatic, Soft Normal bowel sounds Diffuse abdominal tenderness Back: Atraumatic Rectum / Perineum: No gross blood Soft, brown stool in vault. No impaction. Guaiac positive. Interpretation & Diagnostics Lab Results Interpretation Result Diagram: 02/12/17 1303 02/12/17 1303 Test 02/12/17 11:05 02/12/17 12:40 02/12/17 13:03 Hold Damon Top Tube Received (Received) Urine Color Yellow (YELLOW) Urine Appearance Hazy (CLEAR,HAZY) Urine pH 6.0 (5.0-8.0) Urine Specific [place] 1.030 (1.003-1.035) Urine Protein Negativemg/dL (NEG,TRACE) Urine Glucose (UA) Negativemg/dL (NEGATIVE) Urine Ketones 40mg/dL (NEGATIVE) Urine Occult Blood Negative (NEGATIVE) Urine Nitrite Negative (NEGATIVE) Urine Bilirubin Negative (NEGATIVE) Urine Urobilinogen Normalmg/dL (NORMAL) Urine Leukocyte Esterase Negative (NEGATIVE) Urine RBC 0-2/hpf (0-2) Urine WBC 0-5/hpf (0-5) Urine Epithelial Cells Occasional/hpf (NONE-MOD) Urine Crystals None seen (NONE SEEN) Urine Bacteria Moderate/hpf (NONE-FEW) Urine Hyaline Casts None/lpf (NONE) Urine Granular Casts None seen (NONE SEEN) Urine Waxy Casts None seen (NONE SEEN) Urine Red Blood Cell Casts None seen (NONE SEEN) Urine White Blood Cell Casts None seen (NONE SEEN) Urine Mucus Present (None Seen) Urine Trichomonas None seen (NONE SEEN) Urine Yeast None (NONE SEEN) Urinalysis Comment None Urine Culture Reflexed Indicated White Blood Count 7.2th/mm3 (3.8-10.1) Red Blood Count 3.95mil/mm3 (3.90-5.20) Hemoglobin 11.8g/dL (12.0-15.6) Hematocrit 34.1% (35.0-46.0) Mean Corpuscular Volume 86.3fL (81-100) Mean Corpuscular Hemoglobin 29.9pg (27.0-35.0) Mean Corpuscular Hemoglobin Concent 34.6% (32.0-37.0) Red Cell Distribution Width 13.6% (12.3-15.4) Platelet Count 239bil/L (150-400) Neutrophils (%) (Auto) 85.2% (40-74) Lymphocytes (%) (Auto) 9.8% (14-46) Monocytes (%) (Auto) 4.7% (4-12) Eosinophils (%) (Auto) 0.1% (0-5) Basophils (%) (Auto) 0.1% (0-3) Sodium Level 135mEq/L (134-144) Potassium Level 3.9mEq/L (3.5-5.2) Chloride Level 99mEq/L (97-108) Carbon Dioxide Level 20mmol/L (18-29) Blood Urea Nitrogen 10mg/dL (6-24) Creatinine 0.37mg/dL (0.57-1.00) Estimat Glomerular Filtration Rate 259mL/min (>59) Glucose Level 141mg/dL (60-99) Calcium Level 8.7mg/dL (8.5-10.1) Magnesium Level 2.2mg/dL (1.6-2.6) Total Bilirubin 0.3mg/dL (0.0-1.2) Aspartate Amino Transf (AST/SGOT) 12U/L (0-50) Alanine Aminotransferase (ALT/SGPT) 10U/L (0-32) Alkaline Phosphatase 63U/L (25-150) Total Protein 6.5g/dL (6.4-8.4) Albumin 3.8g/dL (3.4-5.0) Lipase 8U/L (13-60) Re-Eval/Medical Decision Med Decision/Clinical Course 56-year-old female with chronic pain and opiate habituation, chronically on high doses of opiates. Second presentation here with constipation, today she also has intractable nausea and vomiting. Labs are reassuring, after oral contrast for CT she has passed a small amount of stool with no improvement in her symptoms. I have been unable to control her nausea with Zofran or Phenergan. She continues to complain of pain. Given her reassuring labs and imaging with multiple findings that I believe are incidental and did not explain her pain, and advised her that we likely would not continue to be treating her abdominal pain with injectable narcotics. Given her intractable symptoms, and the fact that [place] we will admit on observation status to the hospitalist service. Time of Eval: 16:45 Re-Evaluation/Progress Note: Still C/O nausea and abd pain. Does not believe she can take PO. Passed a small BM, does not think it helped her pain. Discussed findings on CT- no acute cause for abd pain, labs reassuring. Pt does not feel able to care for self. Will try for obs admit. Consultation : Referral / Consult Name: Halle Ford DO Consulted With: Hospitalist Story Writer: Accepts admit Discharge & Departure Primary Impression: Nausea and vomiting Vomiting type: unspecified Vomiting Intractability: intractable Qualified Code: R11.2 - Nausea with vomiting, unspecified Additional Impression: Abdominal pain Abdominal location: generalized Qualified Code: R10.84 - Generalized abdominal pain Disposition: ADMITTED TO HOSPITAL Vital Signs - All Vital Signs Date Time Temp Pulse Resp B/P Pulse Ox O2 Delivery O2 Flow Rate FiO2 02/12/17 16:56 36.8 72 18 143/91 99 Room Air 02/12/17 09:38 36.5 74 14 156/62 100 Room Air Referrals: Bob Olvera MD (PCP) Scribe Attestation Portions of this note were transcribed by Shasta Blount. I, Dr. Castanon personally performed the history, physical exam and medical decision-making; I reviewed and confirmed the accuracy of the information in the transcribed note. Signed by: Shasta Blount 02/12/17, 0428 copies to: Bob Olvera MD, Donald L MD Feb 12, 2017 10:26 SHASTA BLOUNT Feb 12, 2017 10:34
[2017-02-12] MEDS ORDERED: 0.9% Sodium Chloride 1,000 ML IV ONE (11:05)
[2017-02-12] MEDS ORDERED: Iohexol 300 mg/mL 30 mL Inj PO ONE (11:05)
[2017-02-12] MEDS: Ondansetron 2 mg/mL 2 mL Inj IVPUSH PRN ×4 (11:30→14:14)
[2017-02-12] MEDS: HYDROmorphone 1 mg/mL Inj IVPUSH PRN ×3 (11:30→14:14)
[2017-02-12 13:05] LABS: BASOPHILS % (AUTO) 0.1 % (0-3); EOSINOPHILS % (AUTO) 0.1 % (0-5); MONOCYTES % (AUTO) 4.7 % (4-12); Mean Corpuscular Hemoglobin 29.9 pg (27.0-35.0); Mean Corpuscular Volume 86.3 fL (81-100); NEUTROPHILS % (AUTO) 85.2 % (40-74); Platelet Count 239 bil/L (150-400)
[2017-02-12 13:12] LABS: APPEARANCE,URINE HAZY (CLEAR,HAZY); COLOR,URINE YELLOW (YELLOW)
[2017-02-12 13:13] LABS: OCCULT BLOOD,URINE NEGATIVE (NEGATIVE); UROBILINOGEN,URINE NORMAL (NORMAL)
[2017-02-12 13:32] LABS: Magnesium 2.2 mg/dL (1.6-2.6)
--- NOTE | 2017-02-12 15:41 | DRSVH ---
PROCEDURE: CT ABDOMEN AND PELVIS WITH CONTRAST ([id number]) INDICATIONS: 56 year-old female with abdominal pain for 5 months. TECHNIQUE: After the administration of oral and intravenous contrast, 5 mm thick sections acquired from the diap hragms to the symphysis. 5 mm thick coronal and sagittal reformats were performed. For radiation do se reduction, the following was used: automated exposure control, adjustment of mA and/or kV accordi ng to patient size. COMPARISON: [facility], CR, XR ABD ACUTE SERIES 3VW, 12/27/2016, 11:29. FINDINGS: Image quality: Excellent. ABDOMEN: Lung bases: Lung bases are clear. Heart size is normal. Solid organs: Liver and spleen are normal in size and enhancement. Gallbladder wall thickness is no rmal. There is intrahepatic and extrahepatic biliary ductal dilation up to 1.2 cm diameter. There is diffuse fatty atrophy of the pancreas. No adrenal nodules. Kidneys are normal in size and enhanceme nt, with asymmetric left moderate hydronephrosis. Nonobstructing 2 mm inferior right renal stone is p resent. Peritoneum and bowel: Stomach, small bowel, and colon loops are normal in caliber and wall thickness . The appendix appears normal on axial image 36, anterior to the cecum. No free fluid or air. Nodes and vessels: No retroperitoneal or mesenteric adenopathy. Aorta and inferior vena cava are no rmal in caliber. 8 mm left renal artery aneurysm is present, with patchy posterior pleural calcificat ion. Miscellaneous: No ventral hernias. PELVIS: Genitourinary: Bladder wall thickness is normal. Uterus is normal in size. The ovaries are not well seen. Miscellaneous: No inguinal hernias or adenopathy. Bones: No suspicious bony lesions. No vertebral body compression fractures. Multilevel vertebral s yndesmophytes are present, as well as incomplete bilateral sacroiliac joint ankylosis. IMPRESSION: 1. Moderate asymmetric left hydronephrosis may reflect a ureteropelvic junction stricture in the abse nce of a dilated left ureter. 2. Intra-and extrahepatic biliary ductal dilation may suggest occult biliary duct stricture or mass. Recommend correlation with liver function tests. 3. Diffuse fatty atrophy of the pancreas may reflect background cystic fibrosis, chronic diabetes, am jamari other possibilities. 4. 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 5. Constellation of findings consistent with seronegative spondyloarthropathy such as ankylosing spon dylitis. 6. Nonobstructing 2 mm inferior right renal stone. Dictated by: Tanner Xiong M.D. on 02/12/2017 at 14:28 Approved by: Tanner Xiong M.D. on 02/12/2017 at 14:39
[2017-02-12] MEDS ORDERED: Promethazine Inj 12.5 MG in Dextrose 5%-Pha MIX 50 ML IV ONE (16:45)
[2017-02-12 16:56] VITALS: BP 143/91; PULSE 72; RESP 18; O2SAT 99
[2017-02-12] MEDS ORDERED: Ondansetron 2 mg/mL 2 mL Inj IVPUSH PRN (17:50)
[2017-02-12] MEDS ORDERED: Alum-Mag Hydrox-Simeth 30 mL Suspension PO PRN ×2 (17:50→20:05)
[2017-02-12 18:04] VITALS: BP 169/86; PULSE 71; RESP 20; O2SAT 98
--- NOTE | 2017-02-12 18:39 | NUR ---
Admit Pt admitted to [facility] room room 1027 at 1800. ED dropped pt off, pt able to transfer to bed from stretcher. IV zofran given for nausea. Pt c/o 05/14 abdominal pain. paged for pain medication. Pt is resting comfortable in bed while awaiting new orders.
[2017-02-12] MEDS ORDERED: Polyethylene Glycol (PEG) 17 Gm Powder PO PRN (20:05)
[2017-02-12] MEDS ORDERED: Glucose 40% Oral Gel 15 Gm Tube PO PRN (20:10)
[2017-02-12 20:26] VITALS: BP 169/82; PULSE 72; RESP 19; O2SAT 99
[2017-02-12] MEDS: MetoCLOpramide 5 mg/mL 2 mL Inj IVPUSH PRN (20:47)
[2017-02-12] MEDS: Senna-Docusate 8.6-50 mg Tablet PO SCH (20:54)
[2017-02-12] MEDS: Insulin LISPRO 300 Unit/3 mL Inj SUBQ SCH (22:00)
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
[2017-02-13] MEDS: Ondansetron 2 mg/mL 2 mL Inj IVPUSH PRN ×3 (00:32→17:39)
--- NOTE | 2017-02-13 03:31 | NUR ---
Pain/Nausea On initial assessment, patient states pain 10/10 on pain scale. Pain has been present for approximately five months. Patient also states nausea off and on. Reglan IVP and Morphine 2mg administered. Approximately an hour later, patient had emesis and requested additional doses of medications. Zofran 40mg IVP and Morphine 15 PO administered. VSS. Call light within reach. Care continues.
[2017-02-13 04:35] VITALS: BP 135/78; PULSE 82; RESP 19; O2SAT 99
[2017-02-13] MEDS: MetoCLOpramide 5 mg/mL 2 mL Inj IVPUSH PRN ×3 (04:37→22:24)
[2017-02-13 06:34] LABS: BASOPHILS % (AUTO) 0.2 % (0-3); EOSINOPHILS % (AUTO) 0.2 % (0-5); MONOCYTES % (AUTO) 5.7 % (4-12); Mean Corpuscular Hemoglobin 29.3 pg (27.0-35.0); Mean Corpuscular Volume 84.7 fL (81-100); NEUTROPHILS % (AUTO) 81.3 % (40-74); Platelet Count 277 bil/L (150-400)
[2017-02-13] MEDS: Insulin LISPRO 300 Unit/3 mL Inj SUBQ SCH (08:00)
[2017-02-13 08:04] VITALS: BP 155/89; PULSE 75; RESP 18; O2SAT 97
[2017-02-13] MEDS ORDERED: Insulin GLARgine 100 Unit/mL Syringe SUBQ SCH (08:30)
[2017-02-13] MEDS: Senna-Docusate 8.6-50 mg Tablet PO SCH ×2 (08:54→20:30)
[2017-02-13 12:42] VITALS: BP 159/88; PULSE 75; RESP 18; O2SAT 97
--- NOTE | 2017-02-13 14:04 | NUR ---
Social Work: Brief Note / Discharge planning Data: Pt is a 56 y/o female admitted for abdominal pain, intrac nausea. Pt's PCP is Dr Olvera, pt's insurance is [facility] blind/disabled. EMR reviewed. Readmit score not listed. HUMAN RESOURCE CONSULTANT met with pt at bedside, role explained. Pt states she lives on [facility] and will need assistance with setting up transportation home, likely tomorrow per MD in rounds. Pt states either [facility] transportation or [facility] would work. HUMAN RESOURCE CONSULTANT completed priority boarding pass for pt, needs MD signature in HUMAN RESOURCE CONSULTANT folder. Assessment: Pt who is independent at baseline. Plan: Pt will d/c home via [facility] transportation or [employer] with priority boarding pass. HUMAN RESOURCE CONSULTANT will continue to follow. MARTINEZ Rome
[2017-02-13 16:20] VITALS: BP 142/57; PULSE 80; RESP 18; O2SAT 98
--- NOTE | 2017-02-13 16:26 | NUR ---
Pain/Nausea This morning pt continued to rate abd pain 10/10 and had nausea. PO pain medication given q6. One dose of zofran given, and one dose Reglan given. Scheduled stool softeners given and prn miralax. Pt passing gas but has not had a BM today. This afternoon pt rated pain 9/10 and states she is starting to feel slightly better. Care continues.
[2017-02-13 19:53] VITALS: BP 161/87; PULSE 73; RESP 16; O2SAT 99
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
[2017-02-14] MEDS: Ondansetron 2 mg/mL 2 mL Inj IVPUSH PRN ×5 (00:36→22:44)
[2017-02-14 04:41] VITALS: BP 164/92; PULSE 72; RESP 18; O2SAT 96
[2017-02-14] MEDS: MetoCLOpramide 5 mg/mL 2 mL Inj IVPUSH PRN ×3 (05:22→19:37)
[2017-02-14 06:20] LABS: BASOPHILS % (AUTO) 0.4 % (0-3); EOSINOPHILS % (AUTO) 0.7 % (0-5); MONOCYTES % (AUTO) 9.1 % (4-12); Mean Corpuscular Hemoglobin 29.3 pg (27.0-35.0); Mean Corpuscular Volume 84.6 fL (81-100); NEUTROPHILS % (AUTO) 64.2 % (40-74); Platelet Count 274 bil/L (150-400)
[2017-02-14 06:45] LABS: Magnesium 2.1 mg/dL (1.6-2.6)
--- NOTE | 2017-02-14 07:51 | NUR ---
Nausea/ Pain Patient unable to report tolerable pain nor relieved nausea throughout shift. Heat pads given continuously, refused second K-pad for abdomen as she has one for her back.
[2017-02-14 07:54] VITALS: BP 149/86; PULSE 77; RESP 18; O2SAT 97
[2017-02-14] MEDS: Senna-Docusate 8.6-50 mg Tablet PO SCH ×2 (08:27→19:48)
[2017-02-14] MEDS ORDERED: Methylnaltrexone 12 mg/0.6 mL Inj SUBQ ONE (09:50)
--- NOTE | 2017-02-14 15:23 | NUR ---
Social Work- Readiness for Discharge/Multi-Disciplinary Rounds Data: EMR Reviewed. Pt is on day 2 of hospitalization. Per multi-disciplinary rounds, pt is not medically ready for discharge, anticipate tomorrow. signed priority boarding pass. Priority Boarding pass faxed to [facility]. SW met with pt at bedside regarding discharge. Pt provided with pt copy of priority boarding pass. Pt will require [facility] transportation tomorrow and [place] ferry [place]. Pt is working on calling [facility] [employer] [facility] in her room to coordinate transportation home from the [facility]. If for some reason [facility] [employer] [facility] is unavailable, [employer] will contact [facility] and ask if they are able to transport patient all the way home. If not, pt will need to coordinate ride home with a friend or family member. SW will follow up with pt regarding transportation tomorrow morning to address barriers. Assessment: Pt who is independent at baseline. Plan: Pt will require [facility] transportation tomorrow and will be getting the [place] ferry tomorrow afternoon. Pt is working on calling [facility] [employer] [facility] in her room to coordinate transportation home from the [facility]. If for some reason [facility] [employer] [facility] is unavailable, [employer] will contact [facility] and ask if they are able to transport patient all the way home. If not, pt will need to coordinate ride home with a friend or family member. SW will follow up with pt regarding transportation tomorrow morning to address potential barriers. MARTINEZ Herrera
[2017-02-14 17:14] VITALS: BP 134/87; PULSE 92; RESP 18; O2SAT 98
--- NOTE | 2017-02-14 17:21 | NUR ---
Pain/GI Consistently complains of abdominal and kidney pain 6-10/10 and nausea, even while eating and talking on the phone. No emesis. Zofran, Reglan and morphine given as ordered. Kpad to back and abd. Relistor ordered and admin; hyoscyamine given for associated cramping. Resulted in very large BM witnessed by SAP HANA DEVELOPER. Pt has been sleeping intermittently since BM.
[2017-02-14 20:30] VITALS: BP 124/79; PULSE 81; RESP 16; O2SAT 97
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
[2017-02-15] MEDS: Ondansetron 2 mg/mL 2 mL Inj IVPUSH PRN ×3 (03:51→12:36)
[2017-02-15 05:30] VITALS: BP 126/79; PULSE 80; RESP 16; O2SAT 98
[2017-02-15] MEDS: MetoCLOpramide 5 mg/mL 2 mL Inj IVPUSH PRN ×2 (06:27→12:35)
[2017-02-15 06:37] LABS: BASOPHILS % (AUTO) 0.4 % (0-3); EOSINOPHILS % (AUTO) 0.9 % (0-5); MONOCYTES % (AUTO) 7.8 % (4-12); Mean Corpuscular Volume 84.9 fL (81-100); NEUTROPHILS % (AUTO) 64.3 % (40-74); Platelet Count 286 bil/L (150-400)
[2017-02-15 06:48] LABS: Magnesium 2.1 mg/dL (1.6-2.6)
[2017-02-15] MEDS: Senna-Docusate 8.6-50 mg Tablet PO SCH (08:30)
--- NOTE | 2017-02-15 09:14 | NUR ---
SW Wax Ball Molder confirmed that [facility] will transport pt from hospital to [facility] and pay for ferry ride. [facility] will reimburse taxi for ferry fare. SW to update Wax Ball Molder when pt is ready to transport - will give instruction to [facility] transport taxi to pay for ferry fare. Pt will coordinate transport from [facility] on [facility] via "[facility] [employer] [facility]." If this service is not available, SW will work with pt to help coordinate transportation from [facility] via friend or family. MARTINEZ Ulloa
--- NOTE | 2017-02-15 10:29 | NUR ---
Social Work: Readiness for Discharge/Multidisciplinary Rounds D: EMR reviewed. Pt is on day 3 of hospitalization. SW met with pt at bedside to confirm discharge plan and transportation. Per MD in rounds, pt is medically cleared to discharge home today. SW informed MD and RN that pt will need to be waiting in [facility] by 1415 for [facility] transport in order to make 1545 ferry. Pt confirmed that her friend will provide transport via POV once pt arrives at [facility] on [facility]. SW updated Mule Operator who confirmed she will set up [facility] transport and update SW with confirmed time. SW will update RN once transport time is confirmed. SW explained [facility] transport process - that pt will be assisted to [facility] where a taxi will pick pt up for transport and pay for ferry where taxi will be reimbursed by [facility] for transport. Pt has received [place] Priority Boarding Pass. Pt stated "she feels much better knowing what her transportation plan looks like." SW asked pt to repeat transportation plan back to ensure pt understands the discharge process. Pt was able to repeat discharge/transportation plan back to . Based on communication with pt, MD, and RN, SW does not have concerns for pt's capacity for self-care at this time. SW will await confirmed transport time from Mule Operator and update notes accordingly. MD and RN made aware of pt's need to leave hospital no later than 1415 for 1545 ferry today. MD and RN agreeable. A: Pt who is independent at baseline and who has been cleared to discharge home today, no discharge needs identified. P: Pt to transport to [facility] terminal via [facility] taxi where she will catch the 1545 ferry to [facility]. Pt has been provided with Priority Boarding Pass. Pt confirmed her friend will pick her up from ferry terminal on [facility] and provide transport home via POV. SW discussed discharge/transportation plan in detail and pt is agreeable. SW to update RN once transport time has been confirmed. MARTINEZ Ulloa
--- NOTE | 2017-02-15 10:45 | NUR ---
Faxed [facility] transport form to [facility] requesting 1415 fiber picker in [facility]. Patient needs to catch the 1545 [address] to [facility], patient is going to walk on and will also need [facility] to cover payment for walk on ferry ticket. I indicated this on [facility] transport form. Updated DRAPERY ESTIMATOR Addendum: 02/15/17 at 1146 by [employer] CM Aris at [employer] transport confirmed fiber picker for 1415 at [facility]. Updated DRAPERY ESTIMATOR
--- NOTE | 2017-02-15 12:59 | PCM.DIMED ---
Discharge Instructions Date of Service Feb 15, 2017 Dates of Hospitalization Feb 12, 2017 at 17:44 Discharge Diagnosis Discharge Diagnosis Opioid Induced Constipation Diet Discharge Diet: No restrictions Activity Discharge Activity: No restrictions Call your provider Call your provider for: Fever or Chills, Shortness of breath, Bleeding, Chest pain, Vomitting, Excessive diarrhea, Weakness (unilateral) Patient Instructions Follow-up Provider: Bob Olvera MD Follow-up with PCP in: 1 week Zaid Romeo MD Feb 15, 2017 12:59
[2017-02-15] MEDS ORDERED: HYOS-21 SL (13:01)
[2017-02-15 13:31] VITALS: BP 101/62; PULSE 79; RESP 18; O2SAT 99
--- NOTE | 2017-02-15 14:16 | NUR ---
Social Work: Discharge D: EMR reviewed. Pt is on day 3 of hospitalization. YAMILA met with pt at bedside to confirm discharge plan and transportation. Per MD in rounds, pt is medically cleared to discharge home today. SW informed MD and RN that pt will need to be waiting in [facility] by 1415 for [facility] transport in order to make 1545 ferry. Pt confirmed that her friend will provide transport via POV once pt arrives at [facility] dock on [facility]. SW updated [employer] confirmed [facility] transport time for 1415 today. SW updated RN. Pt and RN agreeable to plan. SW explained [facility] transport process - that pt will be assisted to [facility] where a taxi will pick pt up for transport and pay for ferry where taxi will be reimbursed by [facility] for transport. Pt has received [place] Priority Boarding Pass. Pt stated "she feels much better knowing what her transportation plan looks like." SW asked pt to repeat transportation plan back to ensure pt understands the discharge process. Pt was able to repeat discharge/transportation plan back to . Based on communication with pt, MD, and RN, does not have concerns for pt's capacity for self-care at this time. MD and RN made aware of pt's need to leave hospital no later than 1415 for 1545 ferry today. MD and RN agreeable. A: Pt who is independent at baseline and who has been cleared to discharge home today, no discharge needs identified. P: Pt to transport to [facility] terminal via [facility] taxi confirmed for 1415 today where she will catch the 1545 ferry to [facility]. Pt has been provided with Priority Boarding Pass. Pt confirmed her friend will pick her up from ferry terminal on [facility] and provide transport home via POV. SW discussed discharge/transportation plan in detail and pt is agreeable. SW to update RN once transport time has been confirmed. MARTINEZ Ulloa
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
== END 2017-02-15 13:54 | disposition home or self-care (01) ==
LOC: SED 09:33 → OSC 17:44
PROVIDERS: ADMIT Internal Medicine; ATTEND Internal Medicine Infectious Disease
DX: K59.03 Drug induced constipation (principal); T40.2X5A Adverse effect of other opioids, initial encounter; R10.84 Generalized abdominal pain; I10 Essential (primary) hypertension; E11.9 Type 2 diabetes mellitus without complications; G89.29 Other chronic pain; I72.2 Aneurysm of renal artery; R11.2 Nausea with vomiting, unspecified; M45.9 Ankylosing spondylitis of unspecified sites in spine; Z88.0 Allergy status to penicillin; Z88.8 Allergy status to other drugs, medicaments and biological substances; Z79.4 Long term (current) use of insulin; Z90.710 Acquired absence of both cervix and uterus; Z79.891 Long term (current) use of opiate analgesic
CPT/HCPCS: 36415; 74177; 80053; 81000; 82274; 83036; 83690; 83735; 85025; 85651; 86140; 87086; 87088; 96361; 96365; 96375; 96376; 99285; G0378; J1170; J1815; J2270; J2405; J2550; J2765; J7030; Q9967

== ENCOUNTER 2017-02-25 11:20 | Observation (INO) | payer OTHER, MEDICAID ==
[~2017-02-25] VITALS: Ht 152.4 cm; Wt 43.2 kg
[2017-02-25] VITALS (7 sets, daily range): BP systolic 84–172; BP diastolic 5–93; PULSE 61–80; RESP 13–17; O2SAT 99–100
[~2017-02-25 11:20] MED LIST changes: -ASCO100089 PO; +HYOS-21 SL; +MORP30TA PO; -ONDA4TAB12 PO; -OXYC30TA48 PO; -PANT40TA3 PO; -SOMA350 PO
--- NOTE | 2017-02-25 11:45 | ED.REPORT ---
HPI-General Illness Date of Service Feb 25, 2017 ED Provider: Jocelyn Wilson MD Patient is a 56 year old female with a history of ankylosing spondylitis, diabetes, hypertension, chronic abdominal pain and chronic narcotic use who presents to the ED via EMS due to constipation for the past 11 days. Associated symptoms include abdominal cramping, flank pain, nausea and unintentional weight loss of 40lbs over the past 5 months. The patient also complains of itching and pain over her entire body. She reports that she has been eating fiber crackers and drinking lots of tea. Patient denies dark/tarry stool, hematochezia or rash. The patient states that she takes multiple stool softeners a day without relief. The patient was admitted 02/12/17 due to her chronic abdominal pain. She also had an upper and lower endoscopy in 12/19 with no acute findings. Nursing Notes Stated Complaint: SHORTNESS OF BREATH Nursing Notes Reviewed: Yes Allergies: Coded Allergies: guaifenesin (Verified Allergy, Severe, Shortness of Breath, 02/12/17) Penicillins (Verified Allergy, Intermediate, Rash, 02/12/17) but no itch, amoxicillin ok acetaminophen (Verified Allergy, Intermediate, Shortness of Breath, ) aspirin (Verified Allergy, Intermediate, Shortness of Breath, 02/12/17) celecoxib (Verified Allergy, Intermediate, Shortness of Breath, 02/12/17) cyclobenzaprine (Verified Allergy, Intermediate, Shortness of Breath, 02/12) fluconazole (Verified Allergy, Intermediate, Shortness of Breath, 02/12/17) hydrocodone (Verified Allergy, Intermediate, Shortness of Breath, 02/12/17) ibuprofen (Verified Allergy, Intermediate, Shortness of Breath, 02/12/17) ketorolac (Verified Allergy, Intermediate, Shortness of Breath, 02/12/17) naproxen (Verified Allergy, Intermediate, Shortness of Breath, 02/12/17) phenylpropanolamine (Verified Allergy, Intermediate, Shortness of Breath, 02/12/17) propoxyphene (Verified Allergy, Intermediate, Nausea, 02/12/17) Scheduled Docusate Sodium (Docusate Sodium) 250 Mg Capsule 250 MG PO DAILY Hyoscyamine SL (Hyoscyamine SL) 0.125 Mg Subl 0.125 MG SL Q6 Insulin Glargine,Hum.rec.anlog (Basaglar Kwikpen U-100) 100 Unit/Ml (3 Ml) Insuln.pen 12 UNIT SQ QAM HOLD FOR BG < 140 MG/DL Morphine Sulfate (Morphine Sulfate) 30 Mg Tablet 15 MG PO QID Polyethylene Glycol 3350 (Miralax) 17 Gm Powd.pack 17 GM PO BID Scheduled PRN Clotrimazole (Itch Relief) 1 % Cream..g. 1 APPLIC TP TID PRN PRN DRY SKIN PATCHES MIX 1:1 WITH TRIAMCINOLONE Magnesium Sulfate (Epsom Salt) 454 Gm Crystals 4 TSP PO DAILY PRN PRN For Constipation Sennosides (Senna) 8.6 Mg Tablet 17.2 MG PO BID PRN PRN For Constipation Triamcinolone Acet (Triamcinolone Acetonide Ointment) 1 Applic/0.25 Gm Oint 1 APPLIC TOP TID PRN PRN DRY SKIN PATCHES MIX 1:1 WITH CLOTRIMAZOLE General Time Seen by MD: 11:38 Chief Complaint Other (constipation) Hx Obtained From: Patient Arrived By: Ambulance Sudden in Onset?: No Onset Occurred: More than a week ago... 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 Past Medical History Ankylosing spondylitis Chronic abdominal pain and narcotic use Diabetes mellitus Reports: Hypertension Past Surgical History ovarian tumor removal Reports: Family History Noncontributory Smoking History Never Smoker Social History Alcohol Use: Denies alcohol use Drug Use: THC Ambulatory Status Independent Review of Systems Full Review of Systems Constitutional: Denies: Chills, Fever Respiratory: Denies: Non-productive cough, Shortness of breath GI: Reports: Abdominal pain, Constipation, Nausea, Denies: Bloody/tarry stool, Hematochezia Female: Reports: Flank pain Endocrine: Reports: Weight loss Skin: Reports Itching, Denies Rash Complete sys rev & neg: except as marked. Physical Exam Vital Signs Vital Signs Date Time Temp Pulse Resp B/P Pulse Ox O2 Delivery O2 Flow Rate FiO2 02/25/17 15:33 36.9 62 16 151/79 100 Room Air 02/25/17 14:00 80 16 120/60 02/25/17 11:39 36.6 66 13 84/5 100 Room Air Initial VS: Reviewed General/Constitutional: Awake, Alert Distress / Hydration: Positive: Distress moderate Appearance / Presentation: Positive: Cachectic Head / Eyes: Atraumatic, Normocephalic, PERRL, EOMI Neck: Atraumatic, Supple Respiratory / Chest: Atraumatic, Breath sounds NL, Breath sounds = bilat, No respiratory distress Cardiovascular: Heart rate NL, Regular rhythm 3/6 systolic ejection murmur Abdomen: Atraumatic, Soft, No rebound Tenderness/Guarding/Rebound: Positive: Tender diffuse abdomen is distended Upper Extremities Upper Extremity / MS: Atraumatic, Full range of motion Lower Extremity / Pelvis / MS: Atraumatic, No edema Skin: Atraumatic, Color NL, No rash, Warm, Dry Neurologic: Oriented X3, Speech NL, No motor deficits, No sensory deficits Interpretation & Diagnostics Lab Results Interpretation Result Diagram: 02/25/17 1150 02/25/17 1150 Test 02/25/17 11:50 02/25/17 11:58 White Blood Count 5.4th/mm3 (3.8-10.1) Red Blood Count 3.59mil/mm3 (3.90-5.20) Hemoglobin 10.6g/dL (12.0-15.6) Hematocrit 31.3% (35.0-46.0) Mean Corpuscular Volume 87.2fL (81-100) Mean Corpuscular Hemoglobin 29.5pg (27.0-35.0) Mean Corpuscular Hemoglobin Concent 33.9% (32.0-37.0) Red Cell Distribution Width 13.4% (12.3-15.4) Platelet Count 226bil/L (150-400) Neutrophils (%) (Auto) 66.2% (40-74) Lymphocytes (%) (Auto) 27.3% (14-46) Monocytes (%) (Auto) 5.0% (4-12) Eosinophils (%) (Auto) 1.3% (0-5) Basophils (%) (Auto) 0.2% (0-3) Sodium Level 136mEq/L (134-144) Potassium Level 4.3mEq/L (3.5-5.2) Chloride Level 99mEq/L (97-108) Carbon Dioxide Level 26mmol/L (18-29) Blood Urea Nitrogen 14mg/dL (6-24) Creatinine 0.36mg/dL (0.57-1.00) Estimat Glomerular Filtration Rate 267mL/min (>59) Glucose Level 126mg/dL (60-99) Calcium Level 8.9mg/dL (8.5-10.1) Total Bilirubin 0.2mg/dL (0.0-1.2) Aspartate Amino Transf (AST/SGOT) 13U/L (0-50) Alanine Aminotransferase (ALT/SGPT) 14U/L (0-32) Alkaline Phosphatase 54U/L (25-150) Total Protein 6.5g/dL (6.4-8.4) Albumin 3.9g/dL (3.4-5.0) Lipase 12U/L (13-60) Urine Color Straw (YELLOW) Urine Appearance Hazy (CLEAR,HAZY) Urine pH 7.0 (5.0-8.0) Urine Specific [place] 1.005 (1.003-1.035) Urine Protein Negativemg/dL (NEG,TRACE) Urine Glucose (UA) Negativemg/dL (NEGATIVE) Urine Ketones Negativemg/dL (NEGATIVE) Urine Occult Blood Negative (NEGATIVE) Urine Nitrite Negative (NEGATIVE) Urine Bilirubin Negative (NEGATIVE) Urine Urobilinogen Normalmg/dL (NORMAL) Urine Leukocyte Esterase Negative (NEGATIVE) Urine RBC 0-2/hpf (0-2) Urine WBC 0-5/hpf (0-5) Urine Epithelial Cells Occasional/hpf (NONE-MOD) Urine Crystals None seen (NONE SEEN) Urine Bacteria None/hpf (NONE-FEW) Urine Hyaline Casts None/lpf (NONE) Urine Granular Casts None seen (NONE SEEN) Urine Waxy Casts None seen (NONE SEEN) Urine Red Blood Cell Casts None seen (NONE SEEN) Urine White Blood Cell Casts None seen (NONE SEEN) Urine Mucus Present (None Seen) Urine Trichomonas None seen (NONE SEEN) Urine Yeast None (NONE SEEN) Urinalysis Comment None Urine Culture Reflexed Not indicated X-Ray Abdominal Interpretation IMPRESSION: 1. A large amount of stool and residual radiological contrast in colon. 2. Partially calcified left renal artery aneurysm. Dictated by: Minerva Raphael M.D. on 02/25/2017 at 14:00 Approved by: Minerva Raphael M.D. on 02/25/2017 at 14:08 Interpretation / Wet Read by: Interpret - Radiologist Re-Eval/Medical Decision Med Decision/Clinical Course 56-year-old woman presents with abdominal pain that has been a chronic and increasing problem over the last 4-6 months. She has a history of ankylosing spondylitis and is on large doses of narcotics and has been on this for a number of years. Workup for her abdominal pain has included evaluation at [facility] and [facility]. She has had a number of admissions. There is no clear unifying diagnosis at this point. She continues to be told that it is severe constipation. Multiple CT scans, abdominal series, ultrasounds, HIDA scans, upper and lower endoscopies have all been done. Results from unremarkable to significant stool in the colon. No significant masses have been noted. Endoscopies were relatively benign. Some studies have shown normal biliary tract other since suggested biliary tract dilation with common duct dilation. HIDA scan reveals an ejection fraction at 45%. Evaluation of gallbladder has not shown stones nor gallbladder wall thickening. CT scan of the abdomen from suggests intra-and extrahepatic biliary ductal dilation dilation with a suggestion of an occult biliary duct stricture or mass. Liver function tests are entirely unremarkable. At this point she continues to complain of severe abdominal pain inability to have a bowel movement she is passing some gas. She is also noting significant pruritus that has increased over the last 4-6 weeks. Given the severity of her pain her recurrent visits to multiple providers, her weight loss, and inability to eat due to all of the above findings I am going to suggest admission. We will ask GI to again intervene and will also ask for additional surgical consult. In the past she has had luck with hycosamine, IV narcotic and subcutaneous methyl naltrexone to move her bowels. She was using a very aggressive bowel regimen including MiraLAX and use senna and Dulcolax at home and still has not had success with bowel movements. Source of Hx: Old records Summary of Info: ABDOMEN CT from 02/12/17 IMPRESSION: 1. Moderate asymmetric left hydronephrosis may reflect a ureteropelvic junction stricture in the absence of a dilated left ureter. 2. Intra-and extrahepatic biliary ductal dilation may suggest occult biliary duct stricture or mass. Recommend correlation with liver function tests. 3. Diffuse fatty atrophy of the pancreas may reflect background cystic fibrosis, chronic diabetes, among other possibilities. 4. 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 5. 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 6. Nonobstructing 2 mm inferior right renal stone. Dictated by: Tanner Xiong M.D. on 02/12/2017 at 14:28 Approved by: Tanner Xiong M.D. on 02/12/2017 at 14:39 Patient also had a HIDA scan in 11/19 that was abnormal. Time of Eval: 13:05 Re-Evaluation/Progress Note: Patient is requesting Dilaudid and a shot to help relieve her constipation. Time of Eval: 14:10 Re-Evaluation/Progress Note: Discussed X-ray results. Time of Eval: 16:09 Re-Evaluation/Progress Note: Discussed plan for admit. Patient understands and agrees to the plan. All questions were addressed. Consultation #1: Referral / Consult Name: Dennise Guzman MD Consulted With: Surgeon Call Returned at: 14:28 Fan Blade Truer: Agrees with eval, Agrees with plan Consultation #2: Referral / Consult Name: Say Martin MD Consulted With: Hospitalist Call Returned at: 15:50 Fan Blade Truer: Agrees with eval, Agrees with plan, Accepts admit Counseled Regarding: Diagnosis, Lab results, Need for admission Discharge & Departure Primary Impression: Constipation Constipation type: unspecified constipation type Qualified Code: K59.00 - Constipation, unspecified Additional Impression: Abdominal pain Abdominal location: generalized Qualified Code: R10.84 - Generalized abdominal pain Disposition: ADMITTED TO HOSPITAL Discharge Condition All VS Reviewed: Yes Condition: Stable Referrals: Bob Olvera MD (PCP) Yamile Attestation Portions of this note were transcribed by Alanis Leon. I, Dr. Wilson personally performed the history, physical exam and medical decision-making; I reviewed and confirmed the accuracy of the information in the transcribed note. Signed by: Yamile Woodruff, 02/25/17 and 1500 copies to: Bob Olvera MD, Shawna L MD Feb 25, 2017 11:45 Parris Leon Feb 25, 2017 11:52
[2017-02-25] MEDS ORDERED: 0.9% Sodium Chloride 1,000 ML IV ONE (11:55)
[2017-02-25] MEDS ORDERED: Ondansetron 2 mg/mL 2 mL Inj IVPUSH ONE (11:55)
[2017-02-25 12:07] LABS: BASOPHILS % (AUTO) 0.2 % (0-3); EOSINOPHILS % (AUTO) 1.3 % (0-5); Mean Corpuscular Hemoglobin 29.5 pg (27.0-35.0); Mean Corpuscular Volume 87.2 fL (81-100); NEUTROPHILS % (AUTO) 66.2 % (40-74); Platelet Count 226 bil/L (150-400)
[2017-02-25 12:26] LABS: APPEARANCE,URINE HAZY (CLEAR,HAZY); COLOR,URINE STRAW (YELLOW); OCCULT BLOOD,URINE NEGATIVE (NEGATIVE); UROBILINOGEN,URINE NORMAL (NORMAL)
[2017-02-25] MEDS ORDERED: Methylnaltrexone 12 mg/0.6 mL Inj SUBQ ONE (12:50)
--- NOTE | 2017-02-25 14:11 | DRSVH ---
PROCEDURE: X-RAY ABDOMEN, ONE VIEW ([id number]) INDICATIONS: abdominal pain TECHNIQUE: One view of the abdomen acquired. COMPARISON: [facility], CT, CT ABD PELVIS W CON, 02/12/2017, 14:11. FINDINGS: Surgical changes and devices: None. Bowel: There is residual radiological oral contrast in distal colon. The large amount of stool is pr esent in colon. Bowel gas pattern is normal. Soft tissues: A 7 mm calcific density medial to the left kidney its consistent with partially calcifi ed left renal artery aneurysm seen on the comparison CT. Visualized solid organ contours appear norm al in size. Bones: No suspicious bony lesions. IMPRESSION: 1. A large amount of stool and residual radiological contrast in colon. 2. Partially calcified left renal artery aneurysm. Dictated by: Minerva Raphael M.D. on 02/25/2017 at 14:00 Approved by: Minerva Raphael M.D. on 02/25/2017 at 14:08
[2017-02-25] MEDS ORDERED: Sodium Biphos-Phos 133 mL Enema RECTAL ONE (14:55)
[2017-02-25] MEDS ORDERED: HYDROmorphone 1 mg/mL Inj IVPUSH ONE (15:30)
[2017-02-25] MEDS ORDERED: Polyethylene Glycol (PEG) 17 Gm Powder PO PRN (16:15)
[2017-02-25] MEDS ORDERED: Alum-Mag Hydrox-Simeth 30 mL Suspension PO PRN (16:15)
--- NOTE | 2017-02-25 16:58 | PCM.HPMED ---
Subjective Date of Service Feb 25, 2017 Primary Provider: Admitting Physician: Say Martin MD Primary Care Physician: Bob Olvera MD Attending Physician: Say Martin MD Chief Complaint: Constipation Abdominal pain History of Present Illness: From ER, patient : Patient is a 56 year old female with a history of ankylosing spondylitis, diabetes, hypertension, chronic abdominal pain and chronic narcotic use who is being admitted due to constipation for the past 11 days. Associated symptoms include abdominal cramping, flank pain, nausea and unintentional weight loss of 40lbs over the past 5 months due to lack of oral intake. The patient also complains of itching and pain over her entire body. She reports that she has been eating fiber crackers and drinking lots of tea. Patient denies dark/tarry stool, hematochezia or rash. The patient states that she takes multiple stool softeners a day without relief. The patient was admitted 02/12/17 due to her chronic abdominal pain. She also had an upper and lower endoscopy in 12/19 with no acute findings. She added that this has been a problem since her childhood( before she started taking opiods). Her mother had chronic constipation as well. This was there before she started taking opiods, however says, it has worsened after she stopped getting steroids for ankylosing spondylitis. At home she takes morphine 15 mg Q4H. Allergies Coded Allergies: guaifenesin (Verified Allergy, Severe, Shortness of Breath, 02/12/17) Penicillins (Verified Allergy, Intermediate, Rash, 02/12/17) but no itch, amoxicillin ok acetaminophen (Verified Allergy, Intermediate, Shortness of Breath, ) aspirin (Verified Allergy, Intermediate, Shortness of Breath, 02/12/17) celecoxib (Verified Allergy, Intermediate, Shortness of Breath, 02/12/17) cyclobenzaprine (Verified Allergy, Intermediate, Shortness of Breath, 02/12) fluconazole (Verified Allergy, Intermediate, Shortness of Breath, 02/12/17) hydrocodone (Verified Allergy, Intermediate, Shortness of Breath, 02/12/17) ibuprofen (Verified Allergy, Intermediate, Shortness of Breath, 02/12/17) ketorolac (Verified Allergy, Intermediate, Shortness of Breath, 02/12/17) naproxen (Verified Allergy, Intermediate, Shortness of Breath, 02/12/17) phenylpropanolamine (Verified Allergy, Intermediate, Shortness of Breath, 02/12/17) propoxyphene (Verified Allergy, Intermediate, Nausea, 02/12/17) Constitutional: : Weakness Eyes: Denies: Blurred Vision, Conjunctive Inflammation, Double Vision, Eyelid Inflammation, Other, Pain, Pigmentosa, Redness, Retinitis, Vision Changes ENT: Denies: Dental Problems, Dysphagia, Ear Discharge, Ear Pain, Hoarseness, Membranes Dry, Nasal Congestion, Nose Discharge, Nose Pain, Other, Throat Pain, Tinnitus, Ulcers/Sores in Mouth Cardiovascular: Denies: Chest Pain, Edema, Lt Headedness, Orthopnea, Other, Palpitations, Paroxysmal Noc. Dyspnea Respiratory: Denies: Cough, Hemoptysis, Other, Pleuritic Chest Pain, SOB with Exertion, Shortness of Breath, Sputum, Wheezing Gastrointestinal: Reports: Other (as per HPI) Genitourinary: Denies: Anuria, Change in Frequency, Dysuria, Hematuria, Incontinence, Nocturia, Other, Retention Musculoskeletal: Denies: Back Pain, Deformity, Limitation of Function, Neck Pain, Other, Redness, Shoulder Pain, Swelling Skin: Denies: Bruising, Dry or Flakiness, Jaundice, Lesions, Other, Rash, Scars , Ulcers Neurological: Denies: Change in Speech, Confusion, Dizziness, Dyskinesia, Hyper Reflexia, Incoordination, Numbness, Other, Seizures, Somnolence, Tremors, Weakness Psychologic: Denies: Agitation, Disorientation, Excitation, Giddiness, Hostile , Insomnia, Instability, Machelle, Nervousness, Night Terrors, Other, Perseveration , Phobia, Sexual Disturbances Endocrine: Denies: Change in Appitite, Diaphoresis, Intolerent to Heat/Cold, Polydipsea, Polyuria PMH Ankylosing spondylitis Chronic abdominal pain and narcotic use Diabetes mellitus Hypertension Surgical History ovarian tumor removal Reports: Family History Mother: ovarian cancer, chronic constipation Social History Hx Alcohol Use: No Hx Substance Use: No Smoking Status: Never Smoker Exam Vital Signs Vital Sign - Last Date Time Temp Pulse Resp B/P Pulse Ox O2 Delivery O2 Flow Rate FiO2 02/25/17 16:12 36.9 62 16 151/79 100 02/25/17 15:33 Room Air Exam Initial VS: Reviewed General/Constitutional: Awake, Alert Distress / Hydration: Distress moderate Appearance / Presentation: Cachectic Head / Eyes: Atraumatic, Normocephalic, PERRL, EOMI Neck: Atraumatic, Supple Respiratory / Chest: Atraumatic, Breath sounds NL, Breath sounds = bilat, No respiratory distress Cardiovascular: Heart rate NL, Regular rhythm Abdomen: Atraumatic, Soft, No rebound, tender Lab and Diagnostics Result Diagram: 02/25/17 1150 02/25/17 1150 X-Rays, CTs and MRIs Abdominal XR IMPRESSION: 1. A large amount of stool and residual radiological contrast in colon. 2. Partially calcified left renal artery aneurysm. Assessment & Plan 56-year-old lady is possible medical history of chronic back pain due to ankylosing spondylitis on morphine, type II diabetes (not on insulin due to poor intake), fibromyalgia being admitted for abdominal pain 2/2 constipation. 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 Sigmoid diverticulosis. -TSH/T4 WNL on 12/28/16, serology (celiac's) within normal limits -Surgery got consulted from ER, will await recs - one dose of relistor (worked for her last time) and hyoscyamine given in ER, will continue daily - Enema done in ER - Nauseated , prn zofran - pain control, limited options, patient cannot take toradol due to allergy, will continue morphine oral - general diet for po as she tolerates - GI consult , as per surgery recs, order in, paged, awaiting call back #Diabetes - will start patient on dextrose NS (patient cachetic, lost a lot of weight in short time) - insulin sliding scale - patient said she does not take lantus anymore #History of ankylosing spondylitis, on pain killers # history of fibromyalgia Patient is admitted inpatient with length of stay expected to be > 2 nights considering the disease process and unpredictability of complications. Pain Evaluation: Pain not Controlled VTE Prophylaxis: SCDs ((pending surgery's recs) ) Time spent 45 mins Say Martin MD Feb 25, 2017 16:58 Say Martin MD Feb 25, 2017 16:58 Say Martin MD Feb 25, 2017 16:58
--- NOTE | 2017-02-25 16:59 | PCM.CONSUR ---
Subjective Date of Service: Feb 25, 2017 History of Present Illness Sinai is a 56-year-old woman with a history of diabetes, and ankylosing spondylitis for which she has been on chronic opioid analgesic treatment. Surgery was consulted after the patient presented to the ED today with constipation and diffuse abdominal pain. She says the pain does not stop, and is associated with severe itching. The patient says that states that she has struggled with constipation since she was a child, with bowel movements only once every 3 days. For the last 5-6 months however, she has had increased trouble with her constipation, and has had an unintentional 40 pound weight loss during this time due to her decreased tolerance for foods. She is mainly on a liquid diet now, and taking 1 stool softeners and laxatives. Despite this , she reports having only 2 bowel movements in the last 20 days. In the last few months, the patient has had a workup consisting of abdominal CT with contrast, abdominal ultrasound, upper and lower endoscopy, and no anatomical reason for her constipation has been identified. Patient denies hematochezia, diarrhea, fevers, jaundice, or scleral icterus. Reason for Consultation Abdominal pain with constipation Allergy Allergies: Coded Allergies: guaifenesin (Verified Allergy, Severe, Shortness of Breath, 02/12/17) Penicillins (Verified Allergy, Intermediate, Rash, 02/12/17) but no itch, amoxicillin ok acetaminophen (Verified Allergy, Intermediate, Shortness of Breath, ) aspirin (Verified Allergy, Intermediate, Shortness of Breath, 02/12/17) celecoxib (Verified Allergy, Intermediate, Shortness of Breath, 02/12/17) cyclobenzaprine (Verified Allergy, Intermediate, Shortness of Breath, 02/12) fluconazole (Verified Allergy, Intermediate, Shortness of Breath, 02/12/17) hydrocodone (Verified Allergy, Intermediate, Shortness of Breath, 02/12/17) ibuprofen (Verified Allergy, Intermediate, Shortness of Breath, 02/12/17) ketorolac (Verified Allergy, Intermediate, Shortness of Breath, 02/12/17) naproxen (Verified Allergy, Intermediate, Shortness of Breath, 02/12/17) phenylpropanolamine (Verified Allergy, Intermediate, Shortness of Breath, 02/12/17) propoxyphene (Verified Allergy, Intermediate, Nausea, 02/12/17) Medications Clotrimazole (Itch Relief) 1 % Cream..g. 1 APPLIC TP TID PRN PRN DRY SKIN PATCHES (Reported) MIX 1:1 WITH TRIAMCINOLONE Last Taken: 1 APPLICATION on Unknown Date & Time Docusate Sodium (Docusate Sodium) 250 Mg Capsule 250 MG PO DAILY (Reported) Last Taken: 250 MG on 02/25/17 0900 Hyoscyamine SL (Hyoscyamine SL) 0.125 Mg Subl 0.125 MG SL Q6 Prescribed by: NICHO RAMOS MD Last Taken: 0.125 MG on 02/25/17 0900 Insulin Glargine,Hum.rec.anlog ( Basaglar Kwikpen U-100) 100 Unit/Ml (3 Ml) Insuln.pen 12 UNIT SQ QAM (Reported) HOLD FOR BG < 140 MG/DL Last Taken: 12 UNITS on Unknown Date & Time Magnesium Sulfate (Epsom Salt) 454 Gm Crystals 4 TSP PO DAILY PRN PRN For Constipation (Reported) Last Taken: 15 ML on 02/25/17 0900 Morphine Sulfate (Morphine Sulfate) 30 Mg Tablet 15 MG PO QID (Reported) Last Taken: 15 MG on 02/25/17 1200 Polyethylene Glycol 3350 (Miralax) 17 Gm Powd.pack 17 GM PO BID (Reported) Last Taken: 17 GM on 02/25/17 0900 Sennosides (Senna) 8.6 Mg Tablet 17.2 MG PO BID PRN PRN For Constipation Prescribed by: TEDDY LOPEZ MD Last Taken: 17.2 MG on 02/25/17 Triamcinolone Acet (Triamcinolone Acetonide Ointment) 1 Applic/0.25 Gm Oint 1 APPLIC TOP TID PRN PRN DRY SKIN PATCHES ( Reported) MIX 1:1 WITH CLOTRIMAZOLE Last Taken: 1 APPLICATION on Unknown Date & Time Past Surgical History Surgeries: Yes (4 C-sections, laparoscopic removal of ovarian cyst) Patient/Family Past Surgical: Denies:: Anesthesia Reactions, Blood Transfuse Reaction, Blood Transfusions Social History Hx Alcohol Use: Yes Hx Substance Use: Yes PMH HEENT History History of ENT Problems?: No HEENT History: Positive for:: Dysphagia Sinus Problem Denies:: Abnormal Airway Cataracts Difficult Intubation Hearing Problem TMJ Cardiovascular History History of Heart Problems?: Yes Cardiovascular History: Positive for:: Edema (L foot and knee ) Hypertension Irregular Heartbeat Denies:: Cardiac Surgery Chest Pain Congestive Heart Failure Heart Murmur Pacemaker Thrombophlebitis Respiratory History of Respiratory Problem: Yes Respiratory History: Positive for:: Asthma Dyspnea Pneumonia (x2) Denies:: COPD Chest Surgery Emphysema Hemoptysis Tuberculosis Neurological History Hx Neurologic Problems?: No Neurological History: Positive for:: Dizziness Denies:: Alzheimer's Disease CVA Dementia Headaches Parkinson's Disease Seizures Gastrointestinal History HX of GI Problems?: Yes Gastrointestinal History: Positive for:: Gastroesphageal Reflux Rectal Bleeding Denies:: Diverticulitis Gastrointestinal Bleeding Heartburn Hepatitis Hiatal Hernia Genitourinary History Hx of Gu Problems?: No Genitourinary History: Positive for: Urinary Tract Infection Denies: HX of Hemodialysis Kidney Stones Female/Male History Reproductive History Female: Denies: Currently ? Endometriosis Pelvic Inflammatory DX Problems with Breasts? Musculoskeletal History Hx Musculoskeletal Problems?: Yes Musculoskeletal History: Positive for:: Back Injury Joint Replacement Musculoskeletal Trauma Psycho Social History Hx of Psycho/Social Problems?: No Psycho Social History: Denies:: Anxiety Bipolar Disorder Hx Depression Suicide Attempt Other History Hx Any Other Health Problems?: Yes Other History: Positive for:: Hospitalization Denies:: Cancer Thyroid Disease Diabetes: Yes Social History Hx Alcohol Use: NoHx Substance Use: No Smoking Status: Never Smoker Objective Exam Vital Signs & I/O Vital Sign- Last 8 Hours Date Time Temp Pulse Resp B/P Pulse Ox O2 Delivery O2 Flow Rate FiO2 02/25/17 16:12 36.9 62 16 151/79 100 02/25/17 15:33 36.9 62 16 151/79 100 Room Air 02/25/17 14:00 80 16 120/60 02/25/17 11:39 36.6 66 13 84/5 100 Room Air Lab & Micro Results Laboratory Tests Test 02/25/17 11:50 02/25/17 11:58 White Blood Count 5.4th/mm3 (3.8-10.1) Red Blood Count 3.59mil/mm3 (3.90-5.20) Hemoglobin 10.6g/dL (12.0-15.6) Hematocrit 31.3% (35.0-46.0) Mean Corpuscular Volume 87.2fL (81-100) Mean Corpuscular Hemoglobin 29.5pg (27.0-35.0) Mean Corpuscular Hemoglobin Concent 33.9% (32.0-37.0) Red Cell Distribution Width 13.4% (12.3-15.4) Platelet Count 226bil/L (150-400) Neutrophils (%) (Auto) 66.2% (40-74) Lymphocytes (%) (Auto) 27.3% (14-46) Monocytes (%) (Auto) 5.0% (4-12) Eosinophils (%) (Auto) 1.3% (0-5) Basophils (%) (Auto) 0.2% (0-3) Sodium Level 136mEq/L (134-144) Potassium Level 4.3mEq/L (3.5-5.2) Chloride Level 99mEq/L (97-108) Carbon Dioxide Level 26mmol/L (18-29) Blood Urea Nitrogen 14mg/dL (6-24) Creatinine 0.36mg/dL (0.57-1.00) Estimat Glomerular Filtration Rate 267mL/min (>59) Glucose Level 126mg/dL (60-99) Calcium Level 8.9mg/dL (8.5-10.1) Total Bilirubin 0.2mg/dL (0.0-1.2) Aspartate Amino Transf (AST/SGOT) 13U/L (0-50) Alanine Aminotransferase (ALT/SGPT) 14U/L (0-32) Alkaline Phosphatase 54U/L (25-150) Total Protein 6.5g/dL (6.4-8.4) Albumin 3.9g/dL (3.4-5.0) Lipase 12U/L (13-60) Urine Color Straw (YELLOW) Urine Appearance Hazy (CLEAR,HAZY) Urine pH 7.0 (5.0-8.0) Urine Specific [place] 1.005 (1.003-1.035) Urine Protein Negativemg/dL (NEG,TRACE) Urine Glucose (UA) Negativemg/dL (NEGATIVE) Urine Ketones Negativemg/dL (NEGATIVE) Urine Occult Blood Negative (NEGATIVE) Urine Nitrite Negative (NEGATIVE) Urine Bilirubin Negative (NEGATIVE) Urine Urobilinogen Normalmg/dL (NORMAL) Urine Leukocyte Esterase Negative (NEGATIVE) Urine RBC 0-2/hpf (0-2) Urine WBC 0-5/hpf (0-5) Urine Epithelial Cells Occasional/hpf (NONE-MOD) Urine Crystals None seen (NONE SEEN) Urine Bacteria None/hpf (NONE-FEW) Urine Hyaline Casts None/lpf (NONE) Urine Granular Casts None seen (NONE SEEN) Urine Waxy Casts None seen (NONE SEEN) Urine Red Blood Cell Casts None seen (NONE SEEN) Urine White Blood Cell Casts None seen (NONE SEEN) Urine Mucus Present (None Seen) Urine Trichomonas None seen (NONE SEEN) Urine Yeast None (NONE SEEN) Urinalysis Comment None Urine Culture Reflexed Not indicated Result Diagram: 02/25/17 1150 02/25/17 1150 Review of Systems: Constitutional: Negative, except as otherwise mentioned in the history above. Ophthalmologic: Negative, except as otherwise mentioned in the history above. Cardiovascular: Negative, except as otherwise mentioned in the history above. Respiratory: Negative, except as otherwise mentioned in the history above. Gastrointestinal: Negative, except as otherwise mentioned in the history above. Genitourinary: Negative, except as otherwise mentioned in the history above. Musculoskeletal: Negative, except as otherwise mentioned in the history above. Neurological: Negative, except as otherwise mentioned in the history above. Psychiatric: Negative, except as otherwise mentioned in the history above. Hematologic/Lymphatic: Negative, except as otherwise mentioned in the history above. Allergic/Immunologic: Negative, except as otherwise mentioned in the history above. H&P Surgical Exam Exam General: Alert, Oriented X3, Cooperative, Moderate Distress, Other (cachectic appearing) HEENT: Within normal limits & unremarkable Neck: Within normal limits & unremarkable Respiratory: Clear to Auscultation, Breath Sounds Diminished Cardiac: Exam Unremarkable, Regular Rate/Rhythm Abdomen: Other (tender to gentle palpation, diminished bowel sounds) Assessment & Plan Assessment Abdominal pain of unclear etiology, possibly from obstipation exacerbated by opioids. Combination of weight loss along with dilated bile duct raise the possibility of an occult periampullary malingancy Recommend Ca19-9 and Gastroenterology evaluation to consider EUS/ERCP Consider Gastrograffin Enema/ Senna to effectively treat obstipation No indication for Surgical intervention. Please call with questions. Solo Foreman DO Feb 25, 2017 16:59 Dennise Guzman MD Feb 26, 2017 10:42
[2017-02-25] MEDS: Ondansetron 2 mg/mL 2 mL Inj IVPUSH PRN ×3 (17:28→21:44)
--- NOTE | 2017-02-25 18:07 | NUR ---
Admit Arrived to [facility] room 1031 via stretcher from ER at 17:00. Report received from Magdalena Hinojosa RN. Pt transferred to bed with steady ambulation. Complains of abd pain and nausea, no emesis. VSS. Pain meds, Zofran and miralax given as ordered. Med Rec to be completed by admit RN and pharmacist. MD's consulting at bedside.
[2017-02-25] MEDS: Polyethylene Glycol (PEG) 17 Gm Powder PO SCH (20:30)
[2017-02-26] MEDS ORDERED: Promethazine Inj 12.5 MG in Dextrose 5%-Pha MIX 50 ML IV ONE (00:10)
[2017-02-26] MEDS ORDERED: 0.9% Sodium Chloride 100 ML ONE (01:08)
[2017-02-26] MEDS: Ondansetron 2 mg/mL 2 mL Inj IVPUSH PRN ×5 (04:11→22:11)
--- NOTE | 2017-02-26 05:31 | NUR ---
Pain/NV Pt continues to report pain 10/10 to abdomen all shift. Scheduled morphine 15mg given. Pt states not effective as she takes 30mg at home. MD aware. Will have AM nurse speak to hospitalist regarding pain meds. PRN zofran given for persistent nausea and vomiting. 1x dose of phenergan given with minimal effects. 2 IV's are patent, SL. Pt tolerating small sips water. Car continues
[2017-02-26 05:59] VITALS: BP 151/84; PULSE 72; RESP 16; O2SAT 98
[2017-02-26 06:56] LABS: BASOPHILS % (AUTO) 0.3 % (0-3); EOSINOPHILS % (AUTO) 0.6 % (0-5); MONOCYTES % (AUTO) 4.4 % (4-12); Mean Corpuscular Volume 86.5 fL (81-100); NEUTROPHILS % (AUTO) 76.6 % (40-74); Platelet Count 251 bil/L (150-400)
[2017-02-26] MEDS: Polyethylene Glycol (PEG) 17 Gm Powder PO SCH ×2 (09:06→21:00)
[2017-02-26] MEDS: Methylnaltrexone 12 mg/0.6 mL Inj SUBQ SCH (11:29)
--- NOTE | 2017-02-26 12:42 | NUR ---
Bowels/Nausea Patient was given Realistor for relief of constipation and has been [place] [facility] [place] with no luck so far. personal companion went to check on patient when call light was on and the patient told her "Get me a glove so I can get this shit out.". personal companion gave patient a glove as per her request. Patient has attempted to digitally disimpact her bowels multiple times this shift. Stating "it's right there. it just needs to come out. I can't get it. Someone needs to do this for me". Talked with patient about letting the realistor work and being careful with disimpaction and try not to add any trauma to her rectum that could further constipation episodes. Encouraged ambulation to help move her bowels. Patient has refused to ambulate. Patient has reported nausea all shift with no relief from 8mg of Zofran and she states that the nausea is from the cramping she is experiencing in her abdomen. Talked with patient about the cramping being helpful to move bowels and relieve her constipation. Patient has requested Soma and an increase in morphine dosage, but because of the effect of slowing motility these are not an option. Continuing to encourage ambulation, awaiting ordered symax from pharmacy to relieve cramping pain, and administering antiemetic when available. Addendum: 02/26/17 at 1418 by SHARON ROMANO RN Patient has reported intermittent relief from nausea and vomiting throughout shift with the help of zofran IVP. Addendum: 02/26/17 at 1855 by SHARON ROMANO RN Patient educated continuously about medications that are ordered and ones she requests and the white board is updated with times each dose can be given. Patient continues to ask for an increase in pain medication, for more cramp prevention medication, and muscle relaxers. Patient educated on the effects of these medications on GI motility and encouraged to ambulate but patient refuses. Pain continues to be a 10/10 on the pain scale and patient continues to report nausea with a poor appetite this shift.
--- NOTE | 2017-02-26 15:39 | NUR ---
Social Work- Initial Assessment/ Multidisciplinary Rounds Data: See Initial Assessment and Advance Directive Intervention for additional information. Pt discussed in rounds. Pt is likely to discharge in a few days. Pt is not ready for discharge at this time. Pt will need HH RN PT 3 times/week at discharge, SW order received. Pt is a readmit, admitted from 02/13-02/15 and discharged home via [facility] transportation last admission. Pt is a 56 year old admitted 02/25/17 for abdominal pain per H&P. Pt's insurance is [employer] [place] [employer] and [facility] Supp. Pt's PCP is Bob Olvera MD. Pt's readmit risk score is 5. SW met with pt at bedside regarding discharge plan, SW role explained. Pt alert and oriented x3. Pt's capacity for self-care assessed. Pt resides [place] [address] in a home with her fiance. Pt is independent with self-care, though pt's fiancee helps with cooking and housekeeping at home. Pt uses no DME at baseline but uses the [employer] to cruise and move around.Pt does not drive, pt uses [facility] transport. Pt has no history with HH services, but is very agreeable to services after this admission. Pt has a goal of not returning to the hospital so much. Pt has no history with SNF services. Pt has no DPOA on file and SW provided paperwork at bedside. HH CHOICE LIST PROVIDED. Pt has no HH choice and SW informed her that [facility] is the only service that goes to the [facility]. Pt is agreeable as long as insurance will cover it. SW will ensure this. [employer] MANAGER to make referral to [facility] for RN PT. YAMILA provided Discharge planning Checklist and requested that pt contact SUPPL[employer]AL[employer] MANAGER if needs identified. Pt also provided with information regarding [facility] because pt would benefit from some case management services outside of the hospital and may benefit from an assessment for additional support at home. SW provided phone number and plan on whiteboard. Pt agreeable. SW will continue to follow. Assessment: Pt for whom HH is medically indicated Plan: [facility] to make referral to [facility] for RN and PT referral. F2F in folder to be completed. Pt will require a priority boarding pass at discharge as she does not have the one from her last admission. Pt will require [facility] or [facility] SW will continue to follow. MARTINEZ Herrera Addendum: 02/26/17 at 1547 by BLAIR DONAHUE Amended: Links added.
--- NOTE | 2017-02-26 15:43 | NUR ---
Gave Access and faxed facesheet to [facility] PT and RN 3 x week per PAINT MAKER and MD order.
[2017-02-26 16:07] VITALS: BP 167/91; PULSE 65; RESP 18; O2SAT 98
[2017-02-26 20:08] LABS: Bilirubin, Direct < 0.2 mg/dL (0.0-0.3)
[2017-02-26 20:17] VITALS: BP 155/77; PULSE 70; RESP 16; O2SAT 99
[2017-02-26] MEDS: D5 0.45% NaCl + KCl 20 mEq/L 1,000 ML IV SCH (20:22)
--- NOTE | 2017-02-26 22:23 | PCM.PNMED ---
Subjective Date of Service Feb 26, 2017 Subjective Patient is cachectic-appearing, she says that for 5 months now she has not been eating well and has been having trouble with constipation though it has also been present long-term. She only had 2 bowel movements in the last 20 days. She says that she often has to De impact herself, doing so resulted in a small bowel movement. She received 2 rounds of Relistor injection. She apparently also lost 40 pounds in the recent past, which is concerning for malignancy. She has requested muscle relaxants this am but then I explained to her that her constipation will not be improving on muscle relaxers. No further concerns Exam Vital Signs Vital Sign - Last Date Time Temp Pulse Resp B/P Pulse Ox O2 Delivery O2 Flow Rate FiO2 02/26/17 20:17 36.7 70 16 155/77 99 Room Air Intake and Output 02/25/17 02/25/17 02/26/17 Cumulative From/Thru 15:00 23:00 07:00 02/25/17 12:00 - 02/26/17 06:43 Intake Total 1000 ml 369 ml 1369 ml Output Total 500 ml 500 ml Balance 1000 ml -131 ml 869 ml Intake Oral 300 ml 300 ml IV Total 1000 ml 69 ml 1069 ml Output Urine Total 400 ml 400 ml Emesis 100 ml 100 ml Exam General/Constitutional: Awake, Alert, moderate distress Appearance / Presentation: Cachectic Head / Eyes: Atraumatic, Normocephalic, PERRL, EOMI Neck: Atraumatic, Supple Respiratory / Chest: Atraumatic, Breath sounds NL, No respiratory distress Cardiovascular: Heart rate NL, Regular rhythm Abdomen: Atraumatic, Soft, No rebound, tender Ext: No edema IVs and Medications IV Fluids 75 cc/hr D5 1/2NSS w/ 20 meq K Medications Reviewed: Medications were reviewed in detail Lab and Diagnostics Result Diagram: 02/26/17 0540 02/26/17 0540 X-Rays, CTs and MRIs Abdominal XR IMPRESSION: 1. A large amount of stool and residual radiological contrast in colon. 2. Partially calcified left renal artery aneurysm. Assessment & Plan 56-year-old lady is possible medical history of chronic back pain due to ankylosing spondylitis on morphine, type II diabetes (not on insulin due to poor intake), fibromyalgia being admitted for abdominal pain 2/2 constipation. # Acute on chronic constipation and abdominal pain -combined factors : chronic opiods exacerbated by familial/hereditary possibly ( slow-transit constipation?) -on morphine 15mg Q4H for abdominal pain due to constipation, creating a vicious cycle - work up in the past : Endoscopy + colonoscopy (december 2016) : mildly distended esophagitis and nonerosive gastritis. Sigmoid diverticulosis. -TSH/T4 WNL on 12/28/16, serology (celiac's) within normal limits -Surgery got consulted from ER, will await recs -Changed Relistor dosing to daily - Enema done in ER - Nauseated , prn zofran - pain control, limited options, patient cannot take toradol due to allergy, will continue morphine oral - general diet for po as she tolerates - GI consult , as per surgery recs, contacted Dr. Barakat discussed the case with him he has known the patient's as he has done EGD and colonoscopy in the past, he will see the patient in the am -- Gen surg has seen the patient, no surgery is planned or recommended at this time. We appreciate their recommendations. They ordered a CA19-9, result is pending. They recommend a gastrograffin enema -- Ordered Gastrografin enema -- Dietary consult is placed #Diabetes, chronic stable - insulin sliding scale, she is not needing it - patient said she does not take lantus anymore -- A1c is 5.8 --D5 1/2 NSS+20 meq K 75 cc/hr #History of ankylosing spondylitis, active -- on pain killers at home -- Currently still on home medication more morphine sulfate # history of fibromyalgia, chronic active -- Continue home meds Incidental Renal Artery aneurysm 7mm on Abd X-ray, POA -- Follow-up for renal artery aneurysm : * 1.0-1.5 cm: can be safely followed -- Will recommend o/p f/u Patient is admitted inpatient with length of stay expected to be > 2 nights considering the disease process and unpredictability of complications. Pain Evaluation: Pain not Controlled VTE Prophylaxis: SCDs ((pending surgery's recs) ) Time spent 25 min Marcelina Alejandro DO Feb 26, 2017 21:27
[2017-02-26 22:49] VITALS: BP 93/50; PULSE 74; RESP 18; O2SAT 99
--- NOTE | 2017-02-27 00:52 | NUR ---
Bowels Gastrografin enema given per MD orders. After 30 min pt did sit on BSC and produce stool, pt reported also needing to disimpact herself as well. Pt had 3 different episodes of BM but also reports that she still feels BM in rectum. Miralax and senna given as well. Pt given scheduled morphine for 10/10 pain, pt reports this to "always be a 10/10" and also given Symax for cramps. Pt did report nausea and took Zofran with relief. Pt now appears to be sleeping.
[2017-02-27] MEDS: Ondansetron 2 mg/mL 2 mL Inj IVPUSH PRN ×6 (02:05→23:51)
[2017-02-27 04:11] VITALS: BP 91/50; PULSE 64; RESP 16; O2SAT 99
[2017-02-27] MEDS ORDERED: PEG/Electrolytes 4,000 mL Solution PO ONE (08:05)
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
[2017-02-27] MEDS ORDERED: Methylnaltrexone 12 mg/0.6 mL Inj SUBQ SCH (08:30)
[2017-02-27] MEDS: Polyethylene Glycol (PEG) 17 Gm Powder PO SCH ×2 (09:20→21:37)
[2017-02-27] MEDS: D5 0.45% NaCl + KCl 20 mEq/L 1,000 ML IV SCH (09:20)
[2017-02-27] MEDS: Methylnaltrexone 12 mg/0.6 mL Inj SUBQ SCH (11:00)
--- NOTE | 2017-02-27 11:15 | NUR ---
GI Patient reports continuous nausea and cramping with a pain of 10/10 on the pain scale. Appetite is diminished and patient was only able to eat bites for breakfast. Did have a large bowel movement last night per shift report but patient states "it wasn't all of it. there's still hard pieces scratching around up there.". Colyte started this AM in hopes of producing a satisfying bowel movement for the patient. No BM as of yet. Continuing to encourage ambulation-patient refusing to be up out of bed. Addendum: 02/27/17 at 1549 by SHARON ROMANO RN Patient able to have a large liquid bowel movement with some pebble like stool as well during this shift. Still states "there is a ball up there that's just hard and won't come out.". Reports a decrease in cramping and nausea compared to yesterday.
--- NOTE | 2017-02-27 11:25 | NUR ---
Relistor Patient refused relistor and stated "i just don't want that. i was told there was going to be a pill. i just hate the cramping."
[2017-02-27 11:30] VITALS: BP 91/50; PULSE 68; RESP 18; O2SAT 100
--- NOTE | 2017-02-27 15:37 | NUR ---
Social Work- Multidisciplinary Rounds Pt discussed in rounds. F2F completed and faxed to [facility]. Clinicals and F2F faxed to [facility] services. [facility] is going to confirm with [employer] when open date is known. SW will continue to follow. MARTINEZ Herrera
--- NOTE | 2017-02-27 15:59 | NUR ---
Patient Questions Patient was questioning if her gallbladder was causing all of the pain and discomfort she has been experiencing and states she has been itchy as well for about 5 months and believes this is due to her gallbladder being an issue. Patient contributes her constipation to steroid shots and states "I know its from the steroid shots. Even if I stopped taking the pain meds, this would still happen.". Educated patient about many things that can contribute to her constipation with narcotics being one of them. Also talked with patient about other possibilities causing her itchiness such as allergies or immune system changes from the steroids. Read result from abdominal xray that was taken upon admission to explain that she has a lot of stool that needs to be passed and it is not surprising to have this cramping discomfort from her bowels starting to move. Patient verbalized her understanding of this conversation. Continuing to assess for any patient questions or needs during each rounding.
[2017-02-27] MEDS ORDERED: Glucose 40% Oral Gel 15 Gm Tube PO PRN (17:00)
--- NOTE | 2017-02-27 17:19 | PCM.PNMED ---
Subjective Date of Service Feb 27, 2017 Subjective Patient is seen and examined, she says she has had several small stools, she declined the relistar injection. She had threeebm overnight after the gastrograffin. She agreed to try and cut back on pain meds. GI started her on Golytely. She is interested in seeing PT/OT Exam Vital Signs Vital Sign - Last Date Time Temp Pulse Resp B/P Pulse Ox O2 Delivery O2 Flow Rate FiO2 02/27/17 11:30 36.7 68 18 91/50 100 Room Air Intake and Output 02/26/17 02/26/17 02/27/17 Cumulative From/Thru 15:00 23:00 07:00 02/25/17 12:00 - 02/27/17 04:11 Intake Total 236 ml 350 ml 1955 ml Output Total 300 ml 875 ml 1675 ml Balance -64 ml -525 ml 280 ml Intake Oral 236 ml 350 ml 886 ml IV Total 1069 ml Output Urine Total 300 ml 825 ml 1525 ml Emesis 50 ml 150 ml # Bowel Movements 3 3 Exam General: Nmild distress, laying on left side HEENT: NCAT Abd: Tender over the bladder and LLQ. 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 A large amount of stool and residual radiological contrast in colon. 2. Partially calcified left renal artery aneurysm. Assessment & Plan 56-year-old lady is possible medical history of chronic back pain due to ankylosing spondylitis on morphine, type II diabetes (not on insulin due to poor intake), fibromyalgia being admitted for abdominal pain 2/2 constipation. # Acute on chronic constipation and abdominal pain improving -combined factors : chronic opiods exacerbated by familial/hereditary possibly ( slow-transit constipation?) -on morphine 15mg Q4H for abdominal pain due to constipation, creating a vicious cycle - work up in the past : Endoscopy + colonoscopy (december 2016) : mildly distended esophagitis and nonerosive gastritis. Sigmoid diverticulosis. -TSH/T4 WNL on 12/28/16, serology (celiac's) within normal limits -Changed Relistor dosing to daily: She has been declining - Enema done in ER : Did not produce results - Nauseated , prn zofran - pain control, limited options, patient cannot take toradol due to allergy, medication morphine is cut to 10 mg 4 times a day - general diet for po as she tolerates - GI consult , as per surgery recs, contacted Dr. Barakat discussed the case with him he has known the patient's as he has done EGD and colonoscopy in the past, Dr. Barakat has seen the patient in the a.m. started on GoLYTELY, recommends amitiza as outpatient -- Gen surg has seen the patient, no surgery is planned or recommended at this time. We appreciate their recommendations. They ordered a CA19-9, result is pending. They recommended a gastrograffin enema, which has been tried with some partial results -- Ordered Gastrografin enema -- Dietary consult is placed --pt is not taking relister as it hurts too much #Diabetes, chronic stable - insulin sliding scale, she is not needing it - patient said she does not take lantus anymore -- A1c is 5.8 --D5 1/2 NSS+20 meq K 75 cc/hr -- added low ssi -- a1c is still pending #History of ankylosing spondylitis, active -- on pain killers at home -- pain meds are reduced to morphine sulfate 10 mg QID # history of fibromyalgia, chronic active -- Morphine is cut as above Incidental Renal Artery aneurysm 7mm on Abd X-ray, POA -- Follow-up for renal artery aneurysm : * 1.0-1.5 cm: can be safely followed -- Will recommend o/p f/u Patient is admitted inpatient with length of stay expected to be > 2 nights considering the disease process and unpredictability of complications. Pain Evaluation: Adequate Pain Control VTE Prophylaxis: SCDs ((pending surgery's recs) ) Time spent 25 min Marcelina Alejandro DO Feb 27, 2017 17:01
[2017-02-27] MEDS: Insulin LISPRO 300 Unit/3 mL Inj SUBQ SCH ×2 (17:30→21:43)
[2017-02-27 19:53] VITALS: BP 117/67; PULSE 67; RESP 18; O2SAT 98
[2017-02-27] MEDS ORDERED: Morphine 2 mg/mL 5 mL Oral Solution PO SCH (21:30)
--- NOTE | 2017-02-27 23:19 | NUR ---
Pain Pt c/o 10 out of 10 pain/burning/cramping in abdomen. Given new order of 10mg Morphine oral solution and did not tolerate well stating "it bedolla my throat". Pt refusing next dose oral solution and requesting to be put back on 15mg PO tab Morphine. Night hospitalist notified, no new orders yet. Addendum: 02/27/17 at 0838 by VAMSI SERRANO RN Night hospitalist discontinued oral solution Morphine and reordered PO tab Morphine per pt request.
[2017-02-28] MEDS: D5 0.45% NaCl + KCl 20 mEq/L 1,000 ML IV SCH ×2 (00:04→14:00)
[2017-02-28] MEDS: Ondansetron 2 mg/mL 2 mL Inj IVPUSH PRN ×3 (03:54→12:12)
[2017-02-28 04:38] VITALS: BP 124/69; PULSE 58; RESP 16; O2SAT 99
[2017-02-28 07:52] VITALS: BP 119/69; PULSE 63; RESP 18; O2SAT 98
[2017-02-28] MEDS: Insulin LISPRO 300 Unit/3 mL Inj SUBQ SCH ×4 (08:00→22:00)
[2017-02-28] MEDS: Polyethylene Glycol (PEG) 17 Gm Powder PO SCH ×2 (08:21→20:25)
--- NOTE | 2017-02-28 09:14 | PCM.PNMED ---
Subjective Date of Service Feb 28, 2017 Subjective Gastroenterology Progress Note Patient continues to complain of abdominal cramping that has not improved. She does note that after starting GoLYTELY prep she has had a few small bowel movements. She does states she still feels as though she has a hard impacted stool in her rectum. Of note she has not completed her GoLYTELY prep and still has approximately one third left. Patient denies any emesis but is significantly nauseous. Nausea has improved with Zofran. Exam Vital Signs Vital Sign - Last Date Time Temp Pulse Resp B/P Pulse Ox O2 Delivery O2 Flow Rate FiO2 02/28/17 07:52 36.7 63 18 119/69 98 Room Air Intake and Output 02/27/17 02/27/17 02/28/17 Cumulative From/Thru 15:00 23:00 07:00 02/25/17 12:00 - 02/28/17 06:06 Intake Total 2405 ml 1409 ml 5769 ml Output Total 1075 ml 2750 ml Balance 2405 ml 334 ml 3019 ml Intake Oral 1550 ml 650 ml 3086 ml IV Total 855 ml 759 ml 2683 ml Output Urine Total 1075 ml 2600 ml Emesis 150 ml # Voids 4 4 # Bowel Movements 3 4 10 Exam General: Alert, Oriented X3, No Acute Distress, Other (cachectic) Head: Other (temporal wasting) Eyes: PERRLA, Scleral Anicteric Nose: Mucous Membr Moist/[place] Mouth: Mucous Membr Moist/[place] Neck: Supple, No Thyromegaly Chest & Lungs: Clear to auscultation & percussion Cardiovascular: Regular Rate/Rhythm, No Murmurs/Rubs/Gallops Pulses: Radial, Dorsalis Pedis, Post Tibial Abdomen: Tender (minimally), Non-distended Extremities: Other (muscle wasting) Neurological: Cranial Nerves 2-12 Intact Lab and Diagnostics Result Diagram: 02/26/17 0540 02/27/17 0617 X-Rays, CTs and MRIs Abdominal XR IMPRESSION: 1. A large amount of stool and residual radiological contrast in colon. 2. Partially calcified left renal artery aneurysm. Assessment & Plan Aris Quezada is a 56-year-old female with past medical history significant for ankylosing spondylitis and diabetes mellitus type II likely steroid-induced who GI is asked to see in regards to her chronic constipation. Dr. Barakat completed an EGD and colonoscopy in December 2016 that was unremarkable. Patient continues to have ongoing constipation which has been refractory to daily twice a day dosing with MiraLAX and senna along with Relistor. Although patient is on chronic opioids constipation was an ongoing issue prior to initiation of opioids. Recommendations - Complete GoLYTELY this morning. Continue to encourage the patient as she is somewhat resistant. - As an outpatient she should be maintained on Amitiza 24 mcg BID. This will require prior authorization. Our GI office will handle the preauthorization. - Tapering Morphine may also provide some benefit if possible with the patient' s ongoing pain from ankylosing spondylitis. - mrcp given dilated intra and extrahepatic bile ducts on prior ct scan Thank you for involving us in this patient's care. We will continue to follow. VTE Prophylaxis: SCDs ((pending surgery's recs) ) ELOY BATES DO Feb 28, 2017 09:14 Bob Barakat MD Feb 28, 2017 18:23
--- NOTE | 2017-02-28 10:20 | NUR ---
Evaluation completed. Please go to "Notes" then click on "Assessments and Notes" (bottom left corner of screen). Then select appropriate discipline tab on top of screen.
[2017-02-28] MEDS: Methylnaltrexone 12 mg/0.6 mL Inj SUBQ SCH (11:00)
[2017-02-28 12:58] VITALS: BP 97/51; PULSE 66; RESP 19; O2SAT 100
[2017-02-28 16:58] VITALS: BP 116/68; PULSE 56; RESP 18; O2SAT 100
--- NOTE | 2017-02-28 19:35 | DRSVH ---
PROCEDURE: MR ABDOMEN MRCP INDICATIONS: Biliary ductal dilatation on prior CT. TECHNIQUE: Coronal HASTE through the abdomen, axial 2-D FLASH in- and [id number], and breath-hold T2 FSE with fat saturation through the biliary system and pancreas. Oblique coronal and axial thin-slice HASTE, radial thick-slab HASTE centered on the extrahepatic bile ducts. Intravenous secretin: Not requested. COMPARISON: [facility], CT, CT ABD PELVIS W CON, 02/12/2017, 14:11. FINDINGS: Image quality: Excellent. Pancreas and biliary system: There is a small dependent gallstone within the gallbladder measuring u p to 3 mm. No gallbladder wall thickening or pericholecystic fluid. There is prominent dilatation o f the extrahepatic biliary duct, with the common hepatic duct measuring up to 1.3 cm and the common b ile duct measuring up to 1.2 cm. There is mild central intrahepatic biliary ductal dilatation. No d iscrete filling defects identified within the common duct to suggest choledocholithiasis. No discret e mass lesion demonstrated at the ampulla in the absence of intravenous contrast. The pancreatic duct is probably dilated measuring up to 4 mm. No discrete pancreatic mass lesions identified in the abs ence of intravenous contrast. Other solid organs: Liver and spleen are normal in size. No adrenal nodules. Kidneys demonstrate n o hydronephrosis. There are multiple left parapelvic renal cysts. Nodes and vessels: No retroperitoneal or mesenteric adenopathy by size criteria. Aorta and inferior vena cava are normal in size. Bowel and peritoneum: Visualized bowel loops are normal in caliber. There is a small amount of intra -abdominal free fluid. Lung bases: No basal pleural effusions. Heart size is normal. Bones and soft tissues: No ventral hernias. Bone marrow is heterogeneous in signal intensity which may reflect hematopoietic marrow conversion. There is subcutaneous edema posteriorly. IMPRESSION: 1. Prominent extrahepatic biliary ductal dilatation with mild intrahepatic dilatation but no evidenc e of choledocholithiasis. Mild dilatation of the pancreatic duct is also noted. The findings may ref lect ampullary stenosis or a nonvisualized mass lesion. 2. Cholelithiasis without evidence of cholecystitis. 3. Small amount of nonspecific free fluid in the abdomen. Dictated by: Yeyo Adams M.D. on 02/28/2017 at 19:26 Approved by: Yeyo Adams M.D. on 02/28/2017 at 19:33
--- NOTE | 2017-02-28 19:43 | NUR ---
Activity/pain Pt. continues to complain of abd cramping, rated 10/10. Prn morphine given Q4 hr. Requesting zofran 8mg Q4hr; changed from IV to SL and has been given 1 dose. Saline locked per orders; tolerating po fluids well. Belly is soft; pt. has had 3 large loose bms this shift. Reporting that she is still feeling impacted, "just not able to get it all out with my finger." Using K-pad for comfort. Encouraged soft foods and po liquids. Report given Francia Lovett RN to continue care.
[2017-02-28 20:22] VITALS: BP 130/73; PULSE 52; RESP 16; O2SAT 98
[2017-03-01 00:09] VITALS: BP 135/72; PULSE 63; RESP 18; O2SAT 97
--- NOTE | 2017-03-01 01:04 | PCM.PNMED ---
Subjective Date of Service Feb 28, 2017 Subjective Patient is seen and examined, she appears to have had several bowel movements but she claims that she still impacted as she canstill feel the stool in her rectum. Overall, she is feeling better. Complains of continued abdominal pain/ cramping. Continues to refuse the Relistor injection. Exam Vital Signs Vital Sign - Last Date Time Temp Pulse Resp B/P Pulse Ox O2 Delivery O2 Flow Rate FiO2 03/01/17 00:09 36.7 63 18 135/72 97 Room Air Intake and Output 02/28/17 02/28/17 03/01/17 Cumulative From/Thru 15:00 23:00 07:00 02/25/17 12:00 - 02/28/17 18:38 Intake Total 527 ml 300 ml 6596 ml Output Total 1900 ml 4650 ml Balance 527 ml -1600 ml 1946 ml Intake Oral 300 ml 3386 ml IV Total 527 ml 3210 ml Output Urine Total 550 ml 3150 ml Urine/Stool Mix 1350 ml 1350 ml Emesis 150 ml # Voids 4 # Bowel Movements 10 Exam General: Nmild distress, laying on left side HEENT: NCAT Abd: Tender over the bladder and LLQ. Normal bowel sounds, non distended Heart: RRR, no s3/s4 Lungs: CTA, no crackles or wheezes Ext: Neg for edema Psych: mildly anxious Neuro: no focal deficits IVs and Medications IV Fluids none Medications Reviewed: Medications were reviewed in detail Lab and Diagnostics Result Diagram: 02/26/17 0540 02/27/17 0617 X-Rays, CTs and MRIs Abdominal XR IMPRESSION: 1. A large amount of stool and residual radiological contrast in colon. 2. Partially calcified left renal artery aneurysm. Assessment & Plan 56-year-old lady is possible medical history of chronic back pain due to ankylosing spondylitis on morphine, type II diabetes (not on insulin due to poor intake), fibromyalgia being admitted for abdominal pain 2/2 constipation. # Acute on chronic constipation and abdominal pain improving -combined factors : chronic opiods exacerbated by familial/hereditary possibly ( slow-transit constipation?) -on morphine 15mg Q4H for abdominal pain due to constipation, creating a vicious cycle - work up in the past : Endoscopy + colonoscopy (december 2016) : mildly distended esophagitis and nonerosive gastritis. Sigmoid diverticulosis. -TSH/T4 WNL on 12/28/16, serology (celiac's) within normal limits -Changed Relistor dosing to daily: She has been declining - Enema done in ER : Did not produce results - Nauseated , prn zofran - pain control, limited options, patient cannot take toradol due to allergy, medication morphine is cut to 10 mg 4 times a day - general diet for po as she tolerates - GI consult , as per surgery recs, contacted Dr. Barakat discussed the case with him he has known the patient's as he has done EGD and colonoscopy in the past, Dr. Barakat has seen the patient in the a.m. started on GoLYTELY, recommends amitiza as outpatient, he will pursue pre-auth for this medication via his clinic -- Gen surg has seen the patient, no surgery is planned or recommended at this time. We appreciate their recommendations. They ordered a CA19-9, result is pending. They recommended a gastrograffin enema, which has been tried with some partial results -- Ordered Gastrografin enema -- Dietary consult is placed --pt is not taking relister as it hurts too much -- Follow-up abdominal x-ray on 03/01 to check the status of her constipation [employer]ist extrahepatic duct dilation, present on admission -- Discussed this with Dr. Barakat 02/28, he ordered an MRCP -- We will follow the result #Diabetes, chronic stable - insulin sliding scale, she is not needing it - patient said she does not take lantus anymore -- Discontinue fluids -- added low ssi -- a1c is 6.4 #History of ankylosing spondylitis, active -- on pain killers at home -- pain meds are reduced to morphine sulfate 10 mg QID, but patient refused to take this dose after agreeing to try. 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 Pain Evaluation: Adequate Pain Control VTE Prophylaxis: SCDs ((pending surgery's recs) ) Time spent 25 min Marcelina Alejandro DO Feb 27, 2017 17:01 Pain Evaluation: Pain not Controlled VTE Prophylaxis: SCDs ((pending surgery's recs) ) Time spent 25 minutes Marcelina Alejandro DO Mar 01, 2017 01:04
--- NOTE | 2017-03-01 03:40 | NUR ---
Activity/Education Patient continues to have frequent loose stools. During night patient reported feeling weak. Vitals taken; 129/68 HR 60. Patient admits to bearing down while having BMs. Talked to her about not pushing too much while having a BM to prevent increased dizziness and lightheadedness. Patient was unaware of the effects of bearing down. Fluid intake was also encouraged. Assessed patients ambulation and appears to be very steady on feet. Will continue to monitor and continue Q1 hour checks.
[2017-03-01 04:34] VITALS: BP 127/72; PULSE 59; RESP 16; O2SAT 100
[2017-03-01] MEDS: Insulin LISPRO 300 Unit/3 mL Inj SUBQ SCH ×4 (08:00→22:00)
[2017-03-01] MEDS: Polyethylene Glycol (PEG) 17 Gm Powder PO SCH ×2 (08:30→20:30)
[2017-03-01 08:39] VITALS: BP 95/58; PULSE 58; RESP 16; O2SAT 100
--- NOTE | 2017-03-01 10:23 | PCM.DIMED ---
Discharge Instructions Date of Service Mar 01, 2017 Dates of Hospitalization Feb 25, 2017 at 15:53 Discharge Diagnosis Discharge Diagnosis Constipation secondary to chronic opiod usage, Intra and Extra hepatic ductal dilation, DM2, Fibromyalgia, Ankylosing Spondylitis Diet Discharge Diet: Low fat, Low Sodium, Diabetic Activity Discharge Activity: No restrictions Call your provider Call your provider for: Fever or Chills, Shortness of breath, Bleeding, Chest pain, Vomitting, Excessive diarrhea, Other Patient Instructions Patient Instructions Please do not take insulin if you can not check BG. Please take 8 units in stead of 10 units of your long acting insulin only if BG in the morning >=200. This is discussed in the room with you, please f/u with PCP and have him review your insulin again Your new medication Amatiza is still being worked on for pre-auth by your GI doctor Dr. Barakat. They will f/u with you on this during your f/u Lactulose is given for constipation Follow-up plan Please schedule a f/u with GI Dr. Barakat or one of his associates in one week. F/U with PCP in one week Marcelina Alejandro DO Mar 01, 2017 10:23
[2017-03-01] MEDS ORDERED: LACT10SO60 PO (10:27)
--- NOTE | 2017-03-01 10:31 | PCM.PNMED ---
Subjective Date of Service Mar 01, 2017 Subjective Gastroenterology Progress Note No acute events overnight. Patient has had numerous bowel movements over the last 24 hours. She states she feels much improved although she does continue to have some mild cramping. She denies any ongoing nausea or vomiting. Exam Vital Signs Vital Sign - Last Date Time Temp Pulse Resp B/P Pulse Ox O2 Delivery O2 Flow Rate FiO2 03/01/17 08:39 36.4 58 16 95/58 100 Room Air Intake and Output 02/28/17 02/28/17 03/01/17 Cumulative From/Thru 15:00 23:00 07:00 02/25/17 12:00 - 03/01/17 06:18 Intake Total 527 ml 300 ml 500 ml 7096 ml Output Total 1900 ml 4650 ml Balance 527 ml -1600 ml 500 ml 2446 ml Intake Oral 300 ml 500 ml 3886 ml IV Total 527 ml 3210 ml Output Urine Total 550 ml 3150 ml Urine/Stool Mix 1350 ml 1350 ml Emesis 150 ml # Voids 5 9 # Bowel Movements 5 15 Exam General: Alert, Oriented X3, No Acute Distress, Other (cachectic) Head: Other (temporal wasting) Eyes: PERRLA, Scleral Anicteric Nose: Mucous Membr Moist/[place] Mouth: Mucous Membr Moist/[place] Neck: Supple, No Thyromegaly Chest & Lungs: Clear to auscultation & percussion Cardiovascular: Regular Rate/Rhythm, No Murmurs/Rubs/Gallops Pulses: Radial, Dorsalis Pedis, Post Tibial Abdomen: Tender (minimally), Non-distended Extremities: Other (muscle wasting) Neurological: Cranial Nerves 2-12 Intact Lab and Diagnostics Result Diagram: 02/26/17 0540 03/01/17 0644 X-Rays, CTs and MRIs Abdominal XR IMPRESSION: 1. A large amount of stool and residual radiological contrast in colon. 2. Partially calcified left renal artery aneurysm. Assessment & Plan Sinai Quezada is a 56-year-old female with past medical history significant for ankylosing spondylitis and diabetes mellitus type II likely steroid-induced who GI is asked to see in regards to her chronic constipation. Dr. Barakat completed an EGD and colonoscopy in December 2016 that was unremarkable. Patient continues to have ongoing constipation which has been refractory to daily twice a day dosing with MiraLAX and senna along with Relistor. During hospitalization patient has been responsive to GoLYTELY. Patient appears to be stable for discharge with close outpatient follow-up. s/p ct abdomen pelvis contrast 02/25/2017- Solid organs: Liver and spleen are normal in size and enhancement. Gallbladder wall thickness is normal. There is intrahepatic and extrahepatic biliary ductal dilation up to 1.2 cm diameter. There is diffuse fatty atrophy of the pancreas. No adrenal nodules. Kidneys are normal in size and enhancement, with asymmetric left moderate hydronephrosis. Nonobstructing 2 mm inferior right renal stone is present. Peritoneum and bowel: Stomach, small bowel, and colon loops are normal in caliber and wall thickness. The appendix appears normal on axial image 36, anterior to the cecum. No free fluid or air. Nodes and vessels: No retroperitoneal or mesenteric adenopathy. Aorta and inferior vena cava are normal in caliber. 8 mm left renal artery aneurysm is present, with patchy posterior pleural calcification. Miscellaneous: No ventral hernias. PELVIS: Genitourinary: Bladder wall thickness is normal. Uterus is normal in size. The ovaries are not well seen. Miscellaneous: No inguinal hernias or adenopathy. Bones: No suspicious bony lesions. No vertebral body compression fractures. Multilevel vertebral syndesmophytes are present, as well as incomplete bilateral sacroiliac joint ankylosis. IMPRESSION: 1. Moderate asymmetric left hydronephrosis may reflect a ureteropelvic junction stricture in the absence of a dilated left ureter. 2. Intra-and extrahepatic biliary ductal dilation may suggest occult biliary duct stricture or mass. Recommend correlation with liver function tests. 3. Diffuse fatty atrophy of the pancreas may reflect background cystic fibrosis , chronic diabetes, among other possibilities. 4. 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 5. 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 6. Nonobstructing 2 mm inferior right renal stone. s/p MRCP 02/28/2017- Pancreas and biliary system: There is a small dependent gallstone within the gallbladder measuring up to 3 mm. No gallbladder wall thickening or pericholecystic fluid. There is prominent dilatation of the extrahepatic biliary duct, with the common hepatic duct measuring up to 1.3 cm and the common bile duct measuring up to 1.2 cm. There is mild central intrahepatic biliary ductal dilatation. No discrete filling defects identified within the common duct to suggest choledocholithiasis. No discrete mass lesion demonstrated at the ampulla in the absence of intravenous contrast. The pancreatic duct is probably dilated measuring up to 4 mm. No discrete pancreatic mass lesions identified in the absence of intravenous contrast. Other solid organs: Liver and spleen are normal in size. No adrenal nodules. Kidneys demonstrate no hydronephrosis. There are multiple left parapelvic renal cysts. Nodes and vessels: No retroperitoneal or mesenteric adenopathy by size criteria. Aorta and inferior vena cava are normal in size. Bowel and peritoneum: Visualized bowel loops are normal in caliber. There is a small amount of intra-abdominal free fluid. Lung bases: No basal pleural effusions. Heart size is normal. Bones and soft tissues: No ventral hernias. Bone marrow is heterogeneous in signal intensity which may reflect hematopoietic marrow conversion. There is subcutaneous edema posteriorly. IMPRESSION: 1. Prominent extrahepatic biliary ductal dilatation with mild intrahepatic dilatation but no evidence of choledocholithiasis. Mild dilatation of the pancreatic duct is also noted. The findings may reflect ampullary stenosis or a nonvisualized mass lesion. 2. Cholelithiasis without evidence of cholecystitis. 3. Small amount of nonspecific free fluid in the abdomen. Recommendations - Discharge the patient on lactulose 30 mg 3 times a day. - Follow up in GI clinic in one week as outpt - EUS +/- ercp outpt given mrcp findings- r/o panc mass - Amitiza 24 MCG twice a day will be started as soon as prior authorization is completed. GI office is currently working on this. - ok d/c home today Thank you for involving us in this patient's care. We will sign off. VTE Prophylaxis: SCDs ((pending surgery's recs) ) ELOY BATES DO Mar 01, 2017 10:31 Bob Barakat MD Mar 01, 2017 11:42
[2017-03-01] MEDS ORDERED: INSU100I13 SUBQ ×2 (10:52→11:05)
--- NOTE | 2017-03-01 10:54 | NUR ---
Pain/activity/Discharge Plan Patient states she continues to feel constipated, stating "there is still something up in there" despite having multiple loose bowel movements. AM XR series being read by MD at this time. Patient consistently rates pain at 10/10 verbally, with a 0 FELDT score. Up independently in room and bathroom. Notified SW of DC plan: If DC'd today, patient needs [facility] boarding pass, transport, and set up.
[2017-03-01] MEDS: Methylnaltrexone 12 mg/0.6 mL Inj SUBQ SCH (11:00)
--- NOTE | 2017-03-01 11:30 | NUR ---
DISCHARGE TRANSPORTATION: Faxed [facility] transport form to [facility] and requested urgent grape picker in main lobby. Spoke with Aris at medicaid transport and he is actively working on cab for patient and will call back with exact time. Updated SPOOL SORTER Addendum: 03/01/17 at 1147 by NAVJOT CORRAL CM Aris at [employer] transport confirmed noon grape picker time in main lobby. Updated SPOOL SORTER and MARY JO
--- NOTE | 2017-03-01 11:43 | NUR ---
Social Work: Continued Discharge Planning/Multidisciplinary Rounds D: EMR reviewed. Pt is on day 4 of hospitalization. Per multidisciplinary rounds, pt is medically stable for discharge home today, pending results from radiology. SW met with MD regarding results and results were positive. Based on results, pt is not medically stable for discharge today. SW notified SW Pediatric Oncologist to cancel transport. RN notified. Pt likely to stay another 1-2 nights based on results. Pt likely to receive CT today or tomorrow. T/C and voicemail to [facility] to confirm receipt of pt's clinicals and F2F. SW will await confirmation of receipt of documents from [facility]. A: Pt who is independent at baseline. Pt for whom RN PT 3x/week has been ordered medically necessary by . P: SW to provide Priority Boarding Pass on day of discharge. T/C and voicemail to [facility] to confirm receipt of pt's clinicals and F2F. SW will await confirmation of receipt of documents from [facility]. SW will continue to follow for needs. MARTINEZ Ulloa
[2017-03-01 12:22] VITALS: BP 117/65; PULSE 65; RESP 18; O2SAT 100
--- NOTE | 2017-03-01 14:38 | DRSVH ---
PROCEDURE: X-RAY ACUTE ABDOMINAL SERIES ([id number]) INDICATIONS: severe constipation TECHNIQUE: One view chest and two views of the abdomen were acquired. COMPARISON: [facility], CR, XR ABD AP 1VW, 02/25/2017, 13:49. [facility], CR , XR ABD ACUTE SERIES 3VW, 12/27/2016, 11:29. FINDINGS: Surgical changes and devices: None. Chest: Lungs are clear. Heart size is normal. No pleural effusions. No pneumoperitoneum. Abdomen: There is mild gaseous distention of bowel loops of the abdomen with short nondifferential ai r-fluid levels. No pneumatosis or bowel wall thickening. No pneumoperitoneum. Bones: No suspicious bony lesions. IMPRESSION: Abnormal appearance of the bowel gas pattern with mild gaseous distention and multiple sh ort air-fluid levels. Developing bowel obstruction cannot be excluded and clinical correlation is re commended. Dictated by: Juan DECKER Interpreted: Julio C Madrid MD on 03/01/2017 at 10:37 Approved by: Julio C Madrid M.D. on 03/01/2017 at 14:34
--- NOTE | 2017-03-01 16:51 | DRSVH ---
PROCEDURE: CT ABDOMEN AND PELVIS WITH CONTRAST ([id number]) INDICATIONS: dEVELOPING OBS TECHNIQUE: After the administration of oral and intravenous contrast, 5 mm thick sections acquired from the diap hragms to the symphysis. 5 mm thick coronal and sagittal reformats were performed. For radiation do se reduction, the following was used: automated exposure control, adjustment of mA and/or kV accordi ng to patient size. COMPARISON: [facility], CT, CT ABD PELVIS W CON, 02/12/2017, 14:11. FINDINGS: Image quality: Excellent. ABDOMEN: Lung bases: Lung bases are clear. Heart size is normal. Solid organs: Liver and spleen are normal in size and enhancement. Gallbladder appears normal. Akil iary system is non-dilated. Pancreas enhances normally. No adrenal nodules. Kidneys are normal in size and enhancement, without hydronephrosis on the right but there is mild hydronephrosis to the lev el of the ureteropelvic junction on the left, without identified calculus or mass.. Peritoneum and bowel: Stomach, small bowel, and colon loops are normal in caliber and wall thickness . No free fluid or air. Nodes and vessels: No retroperitoneal or mesenteric adenopathy. Aorta and inferior vena cava are no rmal in caliber. Miscellaneous: No ventral hernias. PELVIS: Genitourinary: Bladder wall thickness is normal. Miscellaneous: No inguinal hernias or adenopathy. Bones: No suspicious bony lesions. No vertebral body compression fractures. IMPRESSION: There is no sign of intestinal obstruction or perforation. Hydronephrosis present on the left is mild in overall severity and extends to the ureteropelvic junction, without identified mass or calculus as the underlying cause. This may represent a chronic UPJ stenosis finding. Symmetric e nhancement of the kidneys, symmetric size of the kidneys. No adenopathy seen. No sign of intestinal obstruction or perforation. Source of diffuse abdominal p ain is not seen. Dictated by: Julio C Madrid M.D. on 03/01/2017 at 16:45 Approved by: Julio C Madrid M.D. on 03/01/2017 at 16:49
[2017-03-01 17:20] VITALS: BP 151/75; PULSE 55; RESP 19; O2SAT 99
[2017-03-01 22:10] VITALS: BP 108/66; PULSE 61; RESP 17; O2SAT 99
[2017-03-01] MEDS ORDERED: Lactulose 20 Gm/30 mL 30 mL Syrup PO PRN (23:05)
--- NOTE | 2017-03-01 23:16 | PCM.PNMED ---
Subjective Date of Service Mar 01, 2017 Subjective Patient is seen and examined. She is feeling better but she feels that she still has still stuck in her rectum that she can feel. We ordered an abdominal x-ray, I discussed with her that she can be discharged as long as abdominal x- ray showed some improvement. I have gone over her insulin directions with her, basically decreased her home insulin to 8 units only if blood glucose is greater than 200 in the a.m. We also discussed Dr. Barakat will be writing for [facility] if her preauth is approved. Later, after reviewing the x-ray myself he asked for a radiology review, because the x-ray did not look much improved. Radiologist called back saying that this developing small bowel obstruction cannot be ruled out he would like for a check abdominal CT to be ordered Exam Vital Signs Vital Sign - Last Date Time Temp Pulse Resp B/P Pulse Ox O2 Delivery O2 Flow Rate FiO2 03/01/17 22:10 36.9 61 17 108/66 99 Room Air Intake and Output 02/28/17 02/28/17 03/01/17 Cumulative From/Thru 15:00 23:00 07:00 02/25/17 12:00 - 03/01/17 06:18 Intake Total 527 ml 300 ml 500 ml 7096 ml Output Total 1900 ml 4650 ml Balance 527 ml -1600 ml 500 ml 2446 ml Intake Oral 300 ml 500 ml 3886 ml IV Total 527 ml 3210 ml Output Urine Total 550 ml 3150 ml Urine/Stool Mix 1350 ml 1350 ml Emesis 150 ml # Voids 5 9 # Bowel Movements 5 15 Exam General: Nmild distress, laying on left side HEENT: NCAT Abd: Tender over the bladder and LLQ. Improved from yesterday Normal bowel sounds, non distended Heart: RRR, no s3/s4 Lungs: CTA, no crackles or wheezes Ext: Neg for edema Psych: mildly anxious Neuro: no focal deficits IVs and Medications Medications Reviewed: Medications were reviewed in detail Lab and Diagnostics Result Diagram: 02/26/17 0540 03/01/17 0644 X-Rays, CTs and MRIs Abdominal XR IMPRESSION: 1. A large amount of stool and residual radiological contrast in colon. 2. Partially calcified left renal artery aneurysm. PROCEDURE: CT ABDOMEN AND PELVIS WITH CONTRAST ([id number]) INDICATIONS: dEVELOPING OBS TECHNIQUE: After the administration of oral and intravenous contrast, 5 mm thick sections acquired from the diaphragms to the symphysis. 5 mm thick coronal and sagittal reformats were performed. For radiation dose reduction, the following was used : automated exposure control, adjustment of mA and/or kV according to patient size. IMPRESSION: There is no sign of intestinal obstruction or perforation. Hydronephrosis present on the left is mild in overall severity and extends to the ureteropelvic junction, without identified mass or calculus as the underlying cause. This may represent a chronic UPJ stenosis finding. Symmetric enhancement of the kidneys, symmetric size of the kidneys. No adenopathy seen. No sign of intestinal obstruction or perforation. Source of diffuse abdominal pain is not seen. Dictated by: Julio C Madrid M.D. on 03/01/2017 at 16:45 Approved by: Julio C Madrid M.D. on 03/01/2017 at 16:49 PROCEDURE: X-RAY ACUTE ABDOMINAL SERIES ([id number]) INDICATIONS: severe constipation IMPRESSION: Abnormal appearance of the bowel gas pattern with mild gaseous distention and multiple short air-fluid levels. Developing bowel obstruction cannot be excluded and clinical correlation is recommended. Dictated by: Juan RODRIGUEZ Interpreted: Julio C Madrid MD on 03/01/2017 at 10:37 Approved by: Julio C Madrid M.D. on 03/01/2017 at 14:34 Assessment & Plan 56-year-old lady is possible medical history of chronic back pain due to ankylosing spondylitis on morphine, type II diabetes (not on insulin due to poor intake), fibromyalgia being admitted for abdominal pain 2/2 constipation. # Acute on chronic constipation and abdominal pain improving -combined factors : chronic opiods exacerbated by familial/hereditary possibly ( slow-transit constipation?) -on morphine 15mg Q4H for abdominal pain due to constipation, creating a vicious cycle - work up in the past : Endoscopy + colonoscopy (december 2016) : mildly distended esophagitis and nonerosive gastritis. Sigmoid diverticulosis. -TSH/T4 WNL on 12/28/16, serology (celiac's) within normal limits -Changed Relistor dosing to daily: She has been declining - Enema done in ER : Did not produce results - Nauseated , prn zofran - pain control, limited options, patient cannot take toradol due to allergy, medication morphine is cut to 10 mg 4 times a day - general diet for po as she tolerates - GI consult , as per surgery recs, contacted Dr. Barakat discussed the case with him he has known the patient's as he has done EGD and colonoscopy in the past, Dr. Barakat has seen the patient in the a.m. started on GoLYTELY, recommends amitiza as outpatient, he will pursue pre-auth for this medication via his clinic -- Gen surg has seen the patient, no surgery is planned or recommended at this time. We appreciate their recommendations. They ordered a CA19-9, result is pending. They recommended a gastrograffin enema, which has been tried with some partial results -- Ordered Gastrografin enema -- Dietary consult is placed --pt is not taking relister as it hurts too much -- Follow-up abdominal x-ray on 03/01 to check the status of her constipation showe possible developing early obstruction -- Follow-up CT showed Hydronephrosis present on the left is mild in overall severity and extends to the ureteropelvic junction, without identified mass or calculus as the underlying cause. This may represent a chronic UPJ stenosis finding. Chronic hydronephrosis left extending into ureteral pelvic junction -- This is chronic, she will need outpatient follow-up -- We will ask for urology curbside consult [employer] extrahepatic duct dilation, present on admission -- Discussed this with Dr. Barakat 02/28, he ordered an MRCP -- We will follow the result #Diabetes, chronic stable - insulin sliding scale, she is not needing it - patient said she does not take lantus anymore -- Discontinue fluids -- added low ssi -- a1c is 6.4 #History of ankylosing spondylitis, active -- on pain killers at home -- pain meds are reduced to morphine sulfate 10 mg QID, but patient refused to take this dose after agreeing to try. 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 Pain Evaluation: Adequate Pain Control VTE Prophylaxis: SCDs ((pending surgery's recs) ) Time spent 25 min Pain Evaluation: Pain not Controlled VTE Prophylaxis: SCDs ((pending surgery's recs) ) Resuscitation Status: CPR: Attempt Resuscitation Time spent 25 minutes Marcelina Alejandro DO Mar 01, 2017 23:16
[2017-03-02 05:18] VITALS: BP 125/80; PULSE 50; RESP 18; O2SAT 98
--- NOTE | 2017-03-02 06:23 | NUR ---
Transfer from [facility] received phone report at 1940, pt wheeled up to room at 2020, pt a/o, independent, c/o intermittent chronic generalized pain, managed with PRN MS contin, no loose stools tonight, pending DC today, call light in reach at all times.
[2017-03-02] MEDS: Insulin LISPRO 300 Unit/3 mL Inj SUBQ SCH (08:00)
[2017-03-02] MEDS: Polyethylene Glycol (PEG) 17 Gm Powder PO SCH (08:27)
--- NOTE | 2017-03-02 08:44 | PCM.PNSURG ---
Subjective Date of Service: Mar 02, 2017 Date of Service: Mar 02, 2017 Visit Information: Subjective: No acute events overnight. Pt sitting up. Pt states no abdominal pain this am. Pt had BM overnight. Postop General: No Complaints Objective Vital Sign- Last 8 Hours Date Time Temp Pulse Resp B/P Pulse Ox O2 Delivery O2 Flow Rate FiO2 03/02/17 05:18 36.6 50 18 125/80 98 Room Air Intake and Output- Last 8 Hour 03/02/17 Cumulative From/Thru 07:00 02/25/17 12:00 - 03/02/17 06:10 Intake Total 7496 ml Output Total 5100 ml Balance 2396 ml Intake Oral 4286 ml IV Total 3210 ml Output Urine Total 3600 ml Urine/Stool Mix 1350 ml Emesis 150 ml # Voids 5 14 # Bowel Movements 15 General: Oriented X3 Neck: Supple Lungs: Clear to Auscultation Heart: Exam Unremarkable Abdomen: Benign, Soft, Appropriately tender, Non-distended, Normoactive bowel tones Extremities: Distal Pulses Palpable Result Diagram: 02/26/17 0540 03/01/17 0644 Assessment & Plan Impression Sinai Quezada is a 56-year-old female with past medical history significant for ankylosing spondylitis and diabetes mellitus type II likely steroid-induced who GI is asked to see in regards to her chronic constipation. Dr. Barakat completed an EGD and colonoscopy in December 2016 that was unremarkable. Patient continues to have ongoing constipation which has been refractory to daily twice a day dosing with MiraLAX and senna along with Relistor. During hospitalization patient has been responsive to GoLYTELY. Patient appears to be stable for discharge with close outpatient follow-up. s/p ct abdomen pelvis contrast 02/25/2017- Solid organs: Liver and spleen are normal in size and enhancement. Gallbladder wall thickness is normal. There is intrahepatic and extrahepatic biliary ductal dilation up to 1.2 cm diameter. There is diffuse fatty atrophy of the pancreas. No adrenal nodules. Kidneys are normal in size and enhancement, with asymmetric left moderate hydronephrosis. Nonobstructing 2 mm inferior right renal stone is present. Peritoneum and bowel: Stomach, small bowel, and colon loops are normal in caliber and wall thickness. The appendix appears normal on axial image 36, anterior to the cecum. No free fluid or air. Nodes and vessels: No retroperitoneal or mesenteric adenopathy. Aorta and inferior vena cava are normal in caliber. 8 mm left renal artery aneurysm is present, with patchy posterior pleural calcification. Miscellaneous: No ventral hernias. PELVIS: Genitourinary: Bladder wall thickness is normal. Uterus is normal in size. The ovaries are not well seen. Miscellaneous: No inguinal hernias or adenopathy. Bones: No suspicious bony lesions. No vertebral body compression fractures. Multilevel vertebral syndesmophytes are present, as well as incomplete bilateral sacroiliac joint ankylosis. IMPRESSION: 1. Moderate asymmetric left hydronephrosis may reflect a ureteropelvic junction stricture in the absence of a dilated left ureter. 2. Intra-and extrahepatic biliary ductal dilation may suggest occult biliary duct stricture or mass. Recommend correlation with liver function tests. 3. Diffuse fatty atrophy of the pancreas may reflect background cystic fibrosis , chronic diabetes, among other possibilities. 4. 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 5. 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 6. Nonobstructing 2 mm inferior right renal stone. s/p MRCP 02/28/2017- Pancreas and biliary system: There is a small dependent gallstone within the gallbladder measuring up to 3 mm. No gallbladder wall thickening or pericholecystic fluid. There is prominent dilatation of the extrahepatic biliary duct, with the common hepatic duct measuring up to 1.3 cm and the common bile duct measuring up to 1.2 cm. There is mild central intrahepatic biliary ductal dilatation. No discrete filling defects identified within the common duct to suggest choledocholithiasis. No discrete mass lesion demonstrated at the ampulla in the absence of intravenous contrast. The pancreatic duct is probably dilated measuring up to 4 mm. No discrete pancreatic mass lesions identified in the absence of intravenous contrast. Other solid organs: Liver and spleen are normal in size. No adrenal nodules. Kidneys demonstrate no hydronephrosis. There are multiple left parapelvic renal cysts. Nodes and vessels: No retroperitoneal or mesenteric adenopathy by size criteria. Aorta and inferior vena cava are normal in size. Bowel and peritoneum: Visualized bowel loops are normal in caliber. There is a small amount of intra-abdominal free fluid. Lung bases: No basal pleural effusions. Heart size is normal. Bones and soft tissues: No ventral hernias. Bone marrow is heterogeneous in signal intensity which may reflect hematopoietic marrow conversion. There is subcutaneous edema posteriorly. IMPRESSION: 1. Prominent extrahepatic biliary ductal dilatation with mild intrahepatic dilatation but no evidence of choledocholithiasis. Mild dilatation of the pancreatic duct is also noted. The findings may reflect ampullary stenosis or a nonvisualized mass lesion. 2. Cholelithiasis without evidence of cholecystitis. 3. Small amount of nonspecific free fluid in the abdomen. ct abdomen pelvis with contrast 03/01/2017- IMPRESSION: There is no sign of intestinal obstruction or perforation. Hydronephrosis present on the left is mild in overall severity and extends to the ureteropelvic junction, without identified mass or calculus as the underlying cause. This may represent a chronic UPJ stenosis finding. Symmetric enhancement of the kidneys, symmetric size of the kidneys. No adenopathy seen. No sign of intestinal obstruction or perforation. Source of diffuse abdominal pain is not seen. Recommendations: - Discharge the patient on lactulose 30 mg PO tid - Follow up in GI clinic in one week as outpt - EUS +/- ercp outpt given mrcp findings- r/o panc mass - Amitiza 24 MCG twice a day will be started as soon as prior authorization is completed. GI office is currently working on this. - ok d/c home today We will sign off. Problems: VTE Prophylaxis: SCDs ((pending surgery's recs) ) Resuscitation Status: CPR: Attempt Resuscitation Bob Barakat MD Mar 02, 2017 08:44
[2017-03-02 10:00] VITALS: BP 125/68; PULSE 56; RESP 18; O2SAT 98
[2017-03-02] MEDS ORDERED: LACT10SO60 PO (11:45)
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
--- NOTE | 2017-03-02 12:09 | NUR ---
Social Work-discharge: Data:EMR Reviewed. Pt is on day 5 of hospitalization for abdominal pain per H&P. Pt is medically stable for discharge. YAMILA arranged Medicaid transport with [employer] for 1230. 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 Pt has pharmacy stop at [facility]. SW left a message with [facility] informing them of discharge and all discharge information and F2F has been faxed in. pt has priority boarding pass for the ferry. All updated and agreeable to plan. Assessment:Pt to benefit from HH. Plan:Pt to discharge back to [facility] today via Medicaid taxi and pass at 1230. SW left a message with [facility] informing them of discharge and all discharge information and F2F has been faxed in. pt has priority boarding pass for the ferry. All updated and agreeable to plan. MARTINEZ Salinas
--- NOTE | 2017-03-02 12:30 | NUR ---
DISCHARGE PATIENT WILL CATCH A FERRY GOING TO [facility] WITH PRIORITY BOARDING PASS. PICKED UP BY [employer] AROUND 12:40. 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 DISCHARGE NOTES AND INSTRUCTIONS GIVEN, PATIENT UNDERSTOOD WITH NO QUESTIONS. PAIN MEDS GIVEN PRIOR TO DISCHARGE WITH GOOD RESULT.
== END 2017-03-02 12:20 | disposition home or self-care (01) ==
LOC: SED 11:20 → EDUNIT# 11:20 → EDBD 11:20 → OSC 15:53 → MOC 03-01 20:15
PROVIDERS: ADMIT Internal Medicine; ATTEND Family Medicine
DX: K59.00 Constipation, unspecified (principal); F11.90 Opioid use, unspecified, uncomplicated; M45.9 Ankylosing spondylitis of unspecified sites in spine; K82.8 Other specified diseases of gallbladder; E11.9 Type 2 diabetes mellitus without complications; M79.7 Fibromyalgia; N13.30 Unspecified hydronephrosis; I72.2 Aneurysm of renal artery; I10 Essential (primary) hypertension
CPT/HCPCS: 36415; 74000; 74022; 74177; 74181; 80048; 80053; 80076; 81000; 83036; 83690; 85025; 86301; 96361; 96372; 96374; 96375; 96376; 97161; 99285; G0378; J1170; J1815; J2405; J2550; J7030; Q9963; Q9967

== ENCOUNTER 2017-03-09 11:09 | Emergency (ER) | payer OTHER, MEDICAID ==
[~2017-03-09] VITALS: Ht 152.4 cm; Wt 41.4 kg
[~2017-03-09 11:09] MED LIST changes: +INSU100I13 SUBQ; -INSU100I30 SQ; +LACT10SO60 PO
[2017-03-09 11:25] VITALS: BP 143/93; PULSE 79; RESP 12; O2SAT 99
--- NOTE | 2017-03-09 11:37 | ED.REPORT ---
HPI-Abd Pain F 40 and Over Date of Service Mar 09, 2017 ED Provider: Pari Medrano MD The pt is a 56 y/o female w/ a hx of HTN, diabetes, 4 C-sections, and narcotic use presenting to the ED complaining of constipation. She reports not having a bowel movement since 7 days ago and also began experiencing severe generalized abdominal and kidney pain beginning two days ago. The pt has not been eating due to pain, is feeling nauseas, and vomited 4 times last night. She also reports tingling in her fingers for the last 6 months. She describes having to bend down to urinate due to the pain. Denies fevers or chills. She has an appointment two days from now w/ her GI doctor, Dr. Barakat, and she reports him telling her she has severe stomach, kidney, and esophageal swelling. She was seen here two weeks ago for constipation as well. Nursing Notes Stated Complaint: ABDOMINAL PAIN Chief Complaint: Female Abdominal Pain Nursing Notes Reviewed: Yes Allergies: Coded Allergies: guaifenesin (Verified Allergy, Severe, Shortness of Breath, 02/12/17) Penicillins (Verified Allergy, Intermediate, Rash, 02/12/17) but no itch, amoxicillin ok acetaminophen (Verified Allergy, Intermediate, Shortness of Breath, ) aspirin (Verified Allergy, Intermediate, Shortness of Breath, 02/12/17) celecoxib (Verified Allergy, Intermediate, Shortness of Breath, 02/12/17) cyclobenzaprine (Verified Allergy, Intermediate, Shortness of Breath, 02/12) fluconazole (Verified Allergy, Intermediate, Shortness of Breath, 02/12/17) hydrocodone (Verified Allergy, Intermediate, Shortness of Breath, 02/12/17) ibuprofen (Verified Allergy, Intermediate, Shortness of Breath, 02/12/17) ketorolac (Verified Allergy, Intermediate, Shortness of Breath, 02/12/17) naproxen (Verified Allergy, Intermediate, Shortness of Breath, 02/12/17) phenylpropanolamine (Verified Allergy, Intermediate, Shortness of Breath, 02/12/17) propoxyphene (Verified Allergy, Intermediate, Nausea, 02/12/17) Scheduled Docusate Sodium (Docusate Sodium) 250 Mg Capsule 250 MG PO DAILY Hyoscyamine SL (Hyoscyamine SL) 0.125 Mg Subl 0.125 MG SL Q6 Morphine Sulfate (Morphine Sulfate) 30 Mg Tablet 15 MG PO QID Peg 3350/Na Sulf,Bicarb,Cl/KCl (Gavilyte-C Solution) 4,000 Ml Soln.recon 4,000 ML PO Q10min Polyethylene Glycol 3350 (Miralax) 17 Gm Powd.pack 17 GM PO BID Scheduled PRN Clotrimazole (Itch Relief) 1 % Cream..g. 1 APPLIC TP TID PRN PRN DRY SKIN PATCHES MIX 1:1 WITH TRIAMCINOLONE Insulin Glargine (Lantus U100 Solostar Insulin Pen) 100 Unit/1 Ml Insuln.pen 8 UNIT SUBQ DAILYWM PRN PRN mervin Take only if BG>=200 in the AM Lactulose (Lactulose) 20 Gm/30 Ml Solution 30 GM PO TID PRN PRN PRN Magnesium Sulfate (Epsom Salt) 454 Gm Crystals 4 TSP PO DAILY PRN PRN For Constipation Sennosides (Senna) 8.6 Mg Tablet 17.2 MG PO BID PRN PRN For Constipation Triamcinolone Acet (Triamcinolone Acetonide Ointment) 1 Applic/0.25 Gm Oint 1 APPLIC TOP TID PRN PRN DRY SKIN PATCHES MIX 1:1 WITH CLOTRIMAZOLE General Time Seen by MD: 11:28 Chief Complaint Constipation Hx Obtained From: Patient Arrived By: Walk-in Sudden in Onset?: Yes Onset Occurred: 1 week ago Symptom Duration: Since onset Recent Healthcare: No recent hospitalization, Recent doctor visit Similar Sx Previous: Yes Past Medical History Past Medical History Notes: Fire Observer: Dr. Barakat Past Medical History Ankylosing spondylitis Chronic abdominal pain and narcotic use Diabetes mellitus Reports: Hypertension Past Surgical History ovarian tumor removal Reports: Family History Noncontributory Smoking History Never Smoker Social History Alcohol Use: Denies alcohol use Drug Use: THC Ambulatory Status Independent Review of Systems Tingling in fingers; Decreased eating due to pain Constitutional: Denies: Chills, Fever GI: Reports: Abdominal pain, Constipation, Nausea, Vomiting Female: Reports: Flank pain Complete sys rev & neg: except as marked. Physical Exam Vital Signs Vital Signs (First) Date Time Temp Pulse Resp B/P Pulse Ox O2 Delivery O2 Flow Rate FiO2 03/09/17 11:25 36.1 79 12 143/93 99 Room Air Initial VS: Reviewed Head / Eyes: Atraumatic, Normocephalic, PERRL ENT: Mucous membranes moist, Conjunctiva normal, No scleral icterus Neck: Supple, Non-tender, Full range of motion Extremities: Vascular intact, Neuro intact, No swelling, No tenderness Skin: Warm, Dry, No cyanosis Neurologic: Alert, Oriented, Nonfocal Psychiatric: Mood/affect normal, Behavior normal, Normal thought content General/Constitutional: Awake, Alert Respiratory / Chest: Atraumatic, Breath sounds NL, Breath sounds = bilat Cardiovascular: Heart rate NL, Regular rhythm, Heart sounds NL Abdomen: Soft Generalized abdominal discomfort, worst in suprapubic, epigastrum, and lower quadrants Back: Atraumatic, Inspection NL, Full range of motion Interpretation & Diagnostics Lab Results Interpretation Result Diagram: 03/09/17 1135 03/09/17 1135 Test 03/09/17 11:35 03/09/17 14:47 White Blood Count 4.7th/mm3 (3.8-10.1) Red Blood Count 3.92mil/mm3 (3.90-5.20) Hemoglobin 11.8g/dL (12.0-15.6) Hematocrit 33.9% (35.0-46.0) Mean Corpuscular Volume 86.5fL (81-100) Mean Corpuscular Hemoglobin 30.1pg (27.0-35.0) Mean Corpuscular Hemoglobin Concent 34.8% (32.0-37.0) Red Cell Distribution Width 12.9% (12.3-15.4) Platelet Count 263bil/L (150-400) Neutrophils (%) (Auto) 65.1% (40-74) Lymphocytes (%) (Auto) 27.3% (14-46) Monocytes (%) (Auto) 6.8% (4-12) Eosinophils (%) (Auto) 0.6% (0-5) Basophils (%) (Auto) 0.2% (0-3) Prothrombin Time 11.4sec (8.1-12.5) Prothromb Time International Ratio 1.06ratio Sodium Level 135mEq/L (134-144) Potassium Level 4.1mEq/L (3.5-5.2) Chloride Level 96mEq/L (97-108) Carbon Dioxide Level 22mmol/L (18-29) Blood Urea Nitrogen 12mg/dL (6-24) Creatinine 0.54mg/dL (0.57-1.00) Estimat Glomerular Filtration Rate 167mL/min (>59) Glucose Level 132mg/dL (60-99) Calcium Level 9.4mg/dL (8.5-10.1) Magnesium Level 2.0mg/dL (1.6-2.6) Total Bilirubin 0.4mg/dL (0.0-1.2) Aspartate Amino Transf (AST/SGOT) 12U/L (0-50) Alanine Aminotransferase (ALT/SGPT) 9U/L (0-32) Alkaline Phosphatase 55U/L (25-150) Total Protein 6.6g/dL (6.4-8.4) Albumin 4.0g/dL (3.4-5.0) Lipase 8U/L (13-60) Hold Damon Top Tube Received (Received) Urine Color Yellow (YELLOW) Urine Appearance Hazy (CLEAR,HAZY) Urine pH 6.0 (5.0-8.0) Urine Specific [place] 1.020 (1.003-1.035) Urine Protein Negativemg/dL (NEG,TRACE) Urine Glucose (UA) Negativemg/dL (NEGATIVE) Urine Ketones 15mg/dL (NEGATIVE) Urine Occult Blood Negative (NEGATIVE) Urine Nitrite Negative (NEGATIVE) Urine Bilirubin Negative (NEGATIVE) Urine Urobilinogen Normalmg/dL (NORMAL) Urine Leukocyte Esterase Negative (NEGATIVE) Urine RBC 0-2/hpf (0-2) Urine WBC 0-5/hpf (0-5) Urine Epithelial Cells Few/hpf (NONE-MOD) Urine Crystals Amorphous urates (NONE Urine Bacteria None/hpf (NONE-FEW) Urine Hyaline Casts None/lpf (NONE) Urine Granular Casts None seen (NONE SEEN) Urine Waxy Casts None seen (NONE SEEN) Urine Red Blood Cell Casts None seen (NONE SEEN) Urine White Blood Cell Casts None seen (NONE SEEN) Urine Mucus None seen (None Seen) Urine Trichomonas None seen (NONE SEEN) Urine Yeast None (NONE SEEN) Urinalysis Comment None Urine Culture Reflexed Not indicated X-Ray Abdominal Interpretation IMPRESSION: Several small bowel loops show mild gas prominence but do not reach the criteria for true distention. There is prominent colonic obstipation both on the right than the left and extending into the sigmoid colon. Dictated by: Julio C Madrid M.D. on 03/09/2017 at 12:51 Approved by: Julio C Madrid M.D. on 03/09/2017 at 12:52 Study: 2 view Interpretation / Wet Read by: Interpret - Radiologist CT Abd / Pelvis Interpretation IMPRESSION: No acute disease found. Chronic mild left hydronephrosis without nephrolithiasis again noted. No intestinal obstruction or perforation seen. No underlying mass lesion or abnormal fluid collection found. Dictated by: Julio C Madrid M.D. on 03/09/2017 at 15:06 Approved by: Julio C Madrid M.D. on 03/09/2017 at 15:10 Study type: Abdom CT oral contrast Interpretation / Wet Read by: Interpret - Radiologist Re-Eval/Medical Decision Med Decision/Clinical Course The patient has chronic abdominal pain and constipation. She is on multiple narcotics. She says she has swelling of her bowels and kidneys. She is post to see a dado operator on Saturday. There is no acute surgical process that requires her to be admitted to the hospital. While here she did not have any episodes of emesis. A list of differential diagnoses considered were bowel obstruction, gastric enteritis, diverticulitis, colitis, mesenteric ischemia, and constipation. The patient does not have any electrolyte abnormalities and is not severely dehydrated. Re-Evaluation/Progress : Time of Eval: 15:22 Re-Evaluation/Progress Note: Pt rechecked. Informed pt of plan for treatment. Pt understands and agrees with plan for treatment. F/U instructions and RTER warnings given. All questions addressed. Counseled Regarding: Diagnosis, Lab results, Need for follow-up, When/why to return to ED Discharge & Departure Primary Impression: Abdominal pain Abdominal location: unspecified location Qualified Code: R10.9 - Unspecified abdominal pain Additional Impression: Constipation Constipation type: unspecified constipation type Qualified Code: K59.00 - Constipation, unspecified Disposition: Home Discharge Condition All VS Reviewed: Yes Condition: Stable Additional Instructions: Thank for you entrusting us with your care today. Your imaging results show that you have nothing dangerous or bad. Please take the medication to clear your bowels out, and take it until you have had multiple bowel movements. Keep your appointment with Dr. Barakat as originally planned. Please return to the emergency department if you experience any new or worsening symptoms. I hope you feel better soon. Referrals: Bob Olvera MD (PCP) Bob Barkaat MD Scribe Attestation Portions of this note were transcribed by Shiv Bernstein. I, Dr. Medrano personally performed the history, physical exam and medical decision-making; I reviewed and confirmed the accuracy of the information in the transcribed note. copies to: Bob Barakat MD; Bob Olvera MD, Jena M MD Mar 09, 2017 11:37 Shiv Bernstein Mar 09, 2017 12:15
[2017-03-09] MEDS ORDERED: 0.9% Sodium Chloride 1,000 ML IV ONE (11:51)
[2017-03-09] MEDS: Ondansetron 2 mg/mL 2 mL Inj IVPUSH PRN ×2 (12:01→14:40)
[2017-03-09 12:05] LABS: Mean Corpuscular Hemoglobin 30.1 pg (27.0-35.0); Mean Corpuscular Volume 86.5 fL (81-100); NEUTROPHILS % (AUTO) 65.1 % (40-74); Platelet Count 263 bil/L (150-400)
[2017-03-09 12:06] LABS: BASOPHILS % (AUTO) 0.2 % (0-3); EOSINOPHILS % (AUTO) 0.6 % (0-5); MONOCYTES % (AUTO) 6.8 % (4-12)
[2017-03-09 12:07] LABS: INR 1.06 ratio
[2017-03-09] MEDS ORDERED: HYDROmorphone 0.5 mg/0.5 mL iSecure Syringe IVPUSH ONE (12:50)
[2017-03-09] MEDS ORDERED: Iohexol 300 mg/mL 30 mL Inj PO ONE (12:50)
--- NOTE | 2017-03-09 12:53 | DRSVH ---
PROCEDURE: X-RAY ACUTE ABDOMINAL SERIES ([id number]) INDICATIONS: vomiting and pain TECHNIQUE: One view chest and two views of the abdomen were acquired. COMPARISON: [facility], CR, XR ABD ACUTE SERIES 3VW, 03/01/2017, 8:00. FINDINGS: Surgical changes and devices: None. Chest: Lungs are clear. Heart size is normal. No pleural effusions. No pneumoperitoneum. Abdomen: Bowel gas pattern is nonspecific but there is prominent colonic obstipation. No suspicious calcifications. Visualized solid organ contours appear normal. Bones: No suspicious bony lesions. IMPRESSION: Several small bowel loops show mild gas prominence but do not reach the criteria for miya e distention. There is prominent colonic obstipation both on the right than the left and extending i nto the sigmoid colon. Dictated by: Julio C Madrid M.D. on 03/09/2017 at 12:51 Approved by: Julio C Madrid M.D. on 03/09/2017 at 12:52
[2017-03-09] MEDS: HYDROmorphone 0.5 mg/0.5 mL iSecure Syringe IVPUSH PRN ×2 (13:51→14:47)
--- NOTE | 2017-03-09 15:11 | DRSVH ---
PROCEDURE: CT ABDOMEN AND PELVIS WITH CONTRAST ([id number]) INDICATIONS: pain and no BM TECHNIQUE: After the administration of oral and intravenous contrast, 5 mm thick sections acquired from the diap hragms to the symphysis. 5 mm thick coronal and sagittal reformats were performed. For radiation do se reduction, the following was used: automated exposure control, adjustment of mA and/or kV accordi ng to patient size. COMPARISON: [facility], MR, MR ABD MRCP, 02/28/2017, 18:41. [facility], CT, CT ABD PELVIS W CON, 02/12/2017, 14:11. [facility], CT, KIDNEY/ URETER/BLADDER, 12/03/2016, 15:46 . [facility], CT, ABDOMEN/PELVIS WITH CONTRAST, 11/30/2016, 13:11. [facility], CT, CT ABD PELVIS W CON, 03/01/2017, 15:39. FINDINGS: Image quality: Excellent. ABDOMEN: Lung bases: Lung bases are clear. Heart size is normal. Solid organs: Liver and spleen are normal in size and enhancement. Gallbladder does not appear infl polly. Biliary system is non-dilated. Pancreas enhances normally. No adrenal nodules. Kidneys are normal in size and enhancement, without right-sided hydronephrosis. Left-sided mild chronic hydronep hrosis is again seen, present on multiple prior CT scans Peritoneum and bowel: Stomach, small bowel, and colon loops are normal in caliber and wall thickness . No free fluid or air. The large and small bowel show no signs of obstruction or perforation Nodes and vessels: No retroperitoneal or mesenteric adenopathy. Aorta and inferior vena cava are no rmal in caliber. Miscellaneous: No ventral hernias. PELVIS: Genitourinary: Bladder wall thickness is normal. Miscellaneous: No inguinal hernias or adenopathy. Bones: No suspicious bony lesions. No vertebral body compression fractures. IMPRESSION: No acute disease found. Chronic mild left hydronephrosis without nephrolithiasis again noted. No intestinal obstruction or perforation seen. No underlying mass lesion or abnormal fluid c ollection found. Dictated by: Julio C Madrid M.D. on 03/09/2017 at 15:06 Approved by: Julio C Madrid M.D. on 03/09/2017 at 15:10
[2017-03-09 15:13] LABS: APPEARANCE,URINE HAZY (CLEAR,HAZY); COLOR,URINE YELLOW (YELLOW); OCCULT BLOOD,URINE NEGATIVE (NEGATIVE); UROBILINOGEN,URINE NORMAL (NORMAL)
[2017-03-09] MEDS ORDERED: [UNRECOGNIZED DRUG - CODE] PO (15:36)
[2017-03-09 16:17] VITALS: BP 128/64; PULSE 68; RESP 18; O2SAT 98
== END 2017-03-09 16:18 | disposition home or self-care (01) ==
LOC: SED 11:09
DX: K59.00 Constipation, unspecified (principal); R11.2 Nausea with vomiting, unspecified; R20.2 Paresthesia of skin; E11.9 Type 2 diabetes mellitus without complications; I10 Essential (primary) hypertension; F12.10 Cannabis abuse, uncomplicated; Z79.4 Long term (current) use of insulin; Z87.39 Personal history of other diseases of the musculoskeletal system and connective tissue; Z88.0 Allergy status to penicillin; Z88.5 Allergy status to narcotic agent; Z88.6 Allergy status to analgesic agent
CPT/HCPCS: 36415; 74022; 74177; 80053; 81000; 82948; 83690; 83735; 85025; 85610; 96361; 96374; 96375; 96376; 99285; J1170; J2405; J7030; Q9967

== ENCOUNTER 2017-03-11 10:57 | Emergency (ER) | payer MEDICAID, OTHER ==
[~2017-03-11] VITALS: Ht 152.4 cm; Wt 41.4 kg
[~2017-03-11 10:57] MED LIST changes: +[UNRECOGNIZED DRUG - CODE] PO
[2017-03-11 10:59] VITALS: BP 81/59; PULSE 70; RESP 16; O2SAT 99
--- NOTE | 2017-03-11 12:31 | ED.REPORT ---
HPI-Abd Pain F 40 and Over Date of Service Mar 11, 2017 ED Provider: Gagandeep Patel DO Patient is a 56 year old female with a hx of chronic constipation, HTN, and DM who presents to the ED after being referred by the GI clinic for constipation and dehydration. Her last BM was 11 days ago. Associated symptoms include abdominal pain, decreased appetite, and nausea. She denies fever, decreased fluid intake, vomiting, or any other symptoms. She was seen in the department 3 days ago and sent home with a prescription for golytely. She could not fill the prescription until today and had her GI appointment here today. Nursing Notes Stated Complaint: POSSIBLE DEHYDRATION Chief Complaint: Female Abdominal Pain Nursing Notes Reviewed: Yes Allergies: Coded Allergies: guaifenesin (Verified Allergy, Severe, Shortness of Breath, 02/12/17) Penicillins (Verified Allergy, Intermediate, Rash, 02/12/17) but no itch, amoxicillin ok acetaminophen (Verified Allergy, Intermediate, Shortness of Breath, ) aspirin (Verified Allergy, Intermediate, Shortness of Breath, 02/12/17) celecoxib (Verified Allergy, Intermediate, Shortness of Breath, 02/12/17) cyclobenzaprine (Verified Allergy, Intermediate, Shortness of Breath, 02/12) fluconazole (Verified Allergy, Intermediate, Shortness of Breath, 02/12/17) hydrocodone (Verified Allergy, Intermediate, Shortness of Breath, 02/12/17) ibuprofen (Verified Allergy, Intermediate, Shortness of Breath, 02/12/17) ketorolac (Verified Allergy, Intermediate, Shortness of Breath, 02/12/17) naproxen (Verified Allergy, Intermediate, Shortness of Breath, 02/12/17) phenylpropanolamine (Verified Allergy, Intermediate, Shortness of Breath, 02/12/17) propoxyphene (Verified Allergy, Intermediate, Nausea, 02/12/17) Scheduled Docusate Sodium (Docusate Sodium) 250 Mg Capsule 250 MG PO DAILY Hyoscyamine SL (Hyoscyamine SL) 0.125 Mg Subl 0.125 MG SL Q6 Morphine Sulfate (Morphine Sulfate) 30 Mg Tablet 15 MG PO QID Peg 3350/Na Sulf,Bicarb,Cl/KCl (Gavilyte-C Solution) 4,000 Ml Soln.recon 4,000 ML PO Q10min Polyethylene Glycol 3350 (Miralax) 17 Gm Powd.pack 17 GM PO BID Scheduled PRN Clotrimazole (Itch Relief) 1 % Cream..g. 1 APPLIC TP TID PRN PRN DRY SKIN PATCHES MIX 1:1 WITH TRIAMCINOLONE Insulin Glargine (Lantus U100 Solostar Insulin Pen) 100 Unit/1 Ml Insuln.pen 8 UNIT SUBQ DAILYWM PRN PRN mervin Take only if BG>=200 in the AM Lactulose (Lactulose) 20 Gm/30 Ml Solution 30 GM PO TID PRN PRN PRN Magnesium Sulfate (Epsom Salt) 454 Gm Crystals 4 TSP PO DAILY PRN PRN For Constipation Sennosides (Senna) 8.6 Mg Tablet 17.2 MG PO BID PRN PRN For Constipation Triamcinolone Acet (Triamcinolone Acetonide Ointment) 1 Applic/0.25 Gm Oint 1 APPLIC TOP TID PRN PRN DRY SKIN PATCHES MIX 1:1 WITH CLOTRIMAZOLE General Time Seen by MD: 12:25 Chief Complaint Constipation Hx Obtained From: Patient Arrived By: Walk-in Sudden in Onset?: Yes Onset Occurred: More than a week ago... 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 Physical Exam Vital Signs Vital Signs (First) Date Time Temp Pulse Resp B/P Pulse Ox O2 Delivery O2 Flow Rate FiO2 03/11/17 10:59 36.4 70 16 81/59 99 Room Air Initial VS: Reviewed, Vital signs normal Head / Eyes: Atraumatic, Normocephalic Neck: Full range of motion Skin: Warm, Dry Neurologic: Alert, Oriented, Nonfocal Psychiatric: Mood/affect normal, Behavior normal, Normal thought content General/Constitutional: Awake, Alert, No acute distress Appearance / Presentation: Positive: Frail Thin Respiratory / Chest: Breath sounds NL, Breath sounds = bilat, No respiratory distress Cardiovascular: Heart rate NL, Regular rhythm, Heart sounds NL Abdomen: Atraumatic, Soft, No guarding, No rebound Tenderness/Guarding/Rebound: Positive: Tender diffuse (mild ) Back: Atraumatic Interpretation & Diagnostics Lab Results Interpretation Result Diagram: 03/11/17 1312 03/11/17 1312 Test 03/11/17 13:12 White Blood Count 4.6th/mm3 (3.8-10.1) Red Blood Count 3.65mil/mm3 (3.90-5.20) Hemoglobin 11.0g/dL (12.0-15.6) Hematocrit 31.3% (35.0-46.0) Mean Corpuscular Volume 85.8fL (81-100) Mean Corpuscular Hemoglobin 30.1pg (27.0-35.0) Mean Corpuscular Hemoglobin Concent 35.1% (32.0-37.0) Red Cell Distribution Width 12.9% (12.3-15.4) Platelet Count 252bil/L (150-400) Neutrophils (%) (Auto) 59.8% (40-74) Lymphocytes (%) (Auto) 28.8% (14-46) Monocytes (%) (Auto) 9.2% (4-12) Eosinophils (%) (Auto) 1.3% (0-5) Basophils (%) (Auto) 0.7% (0-3) Sodium Level 131mEq/L (134-144) Potassium Level 3.9mEq/L (3.5-5.2) Chloride Level 93mEq/L (97-108) Carbon Dioxide Level 21mmol/L (18-29) Blood Urea Nitrogen 14mg/dL (6-24) Creatinine 0.49mg/dL (0.57-1.00) Estimat Glomerular Filtration Rate 187mL/min (>59) Glucose Level 87mg/dL (60-99) Calcium Level 9.1mg/dL (8.5-10.1) Magnesium Level 2.0mg/dL (1.6-2.6) Total Bilirubin 0.4mg/dL (0.0-1.2) Aspartate Amino Transf (AST/SGOT) 12U/L (0-50) Alanine Aminotransferase (ALT/SGPT) 9U/L (0-32) Alkaline Phosphatase 51U/L (25-150) Total Protein 6.1g/dL (6.4-8.4) Albumin 3.8g/dL (3.4-5.0) Lipase 10U/L (13-60) X-Ray Abdominal Interpretation IMPRESSION: No evidence for bowel obstruction; interval transit of CT oral contrast into normal caliber colon. Dictated by: Tanner Xiong M.D. on 03/11/2017 at 15:17 Approved by: Tanner Xiong M.D. on 03/11/2017 at 15:19 Interpretation / Wet Read by: Interpret - Radiologist Re-Eval/Medical Decision Med Decision/Clinical Course Findings of chronic constipation. She did have an initially low blood pressure however after a repeat with an appropriate size For vital signs are stable. I do not suspect any life-threatening pathology. She has a normal white blood cell count. CT from a few days ago is reviewed and an abdominal series today was reassuring. He is tolerating oral intake in the ER. She will be discharged with a prescription for GoLYTELY and instructed to follow-up as planned or return to the ER as needed if worse. Discharge & Departure Primary Impression: Constipation Disposition: Home Discharge Condition All VS Reviewed: Yes Condition: Stable Patient Instructions: Constipation (ED) Additional Instructions: Your x-rays suggest that you are constipated. Use GoLYTELY as prescribed to clear out her bowels and then resume your previous bowel regimen. 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 Return to the ER as needed for high fever, severe uncontrolled pain, persistent vomiting, or other concerns. Referrals: Bob Olvera MD (PCP) Scribe Attestation Portions of this note were transcribed by Shasta Blount. I, Dr. Patel personally performed the history, physical exam and medical decision-making; I reviewed and confirmed the accuracy of the information in the transcribed note. Signed by: Yamile Banks, 03/11/17 copies to: Bob Olvera MD, Timothy S DO Mar 11, 2017 12:31 SHASTA BLOUNT Mar 11, 2017 12:50
[2017-03-11 12:53] VITALS: BP 114/74; PULSE 65; RESP 16; O2SAT 99
[2017-03-11] MEDS ORDERED: 0.9% Sodium Chloride 1,000 ML IV ONE (12:57)
[2017-03-11] MEDS ORDERED: Ondansetron 2 mg/mL 2 mL Inj IVPUSH PRN (13:00)
[2017-03-11 13:26] LABS: BASOPHILS % (AUTO) 0.7 % (0-3); EOSINOPHILS % (AUTO) 1.3 % (0-5); MONOCYTES % (AUTO) 9.2 % (4-12); Mean Corpuscular Hemoglobin 30.1 pg (27.0-35.0); Mean Corpuscular Volume 85.8 fL (81-100); NEUTROPHILS % (AUTO) 59.8 % (40-74); Platelet Count 252 bil/L (150-400)
--- NOTE | 2017-03-11 15:21 | DRSVH ---
PROCEDURE: X-RAY ACUTE ABDOMINAL SERIES ([id number]) INDICATIONS: 56 are old female with abdominal pain and history of constipation. TECHNIQUE: One view chest and two views of the abdomen were acquired. COMPARISON: [facility], CT, CT ABD PELVIS W CON, 03/09/2017, 14:29. [facility], CR, XR ABD ACUTE SERIES 3VW, 03/09/2017, 12:08. [facility], CR, XR ABD ACUTE SERIES 3 VW, 03/01/2017, 8:00. [facility], CR, XR ABD ACUTE SERIES 3VW, 12/27/2016, 11:29. FINDINGS: Surgical changes and devices: None. Chest: Lungs are clear. Heart size is normal. No pleural effusions. No pneumoperitoneum. Abdomen: Bowel gas pattern is normal, with interval transit of CT oral contrast into normal caliber colon loops. No suspicious calcifications. Visualized solid organ contours appear normal. Bones: No suspicious bony lesions. IMPRESSION: No evidence for bowel obstruction; interval transit of CT oral contrast into normal calib er colon. Dictated by: Tanner Xiong M.D. on 03/11/2017 at 15:17 Approved by: Tanner Xiong M.D. on 03/11/2017 at 15:19
[2017-03-11] MEDS ORDERED: COLL PO (15:28)
[2017-03-11] MEDS ORDERED: Ondansetron 8 mg ODT Tablet ONE (15:36)
== END 2017-03-11 15:53 | disposition home or self-care (01) ==
LOC: SED 10:57
DX: K59.00 Constipation, unspecified (principal); E86.0 Dehydration; R11.0 Nausea; E11.9 Type 2 diabetes mellitus without complications; I10 Essential (primary) hypertension; Z79.4 Long term (current) use of insulin; K21.9 Gastro-esophageal reflux disease without esophagitis; J45.909 Unspecified asthma, uncomplicated; Z79.891 Long term (current) use of opiate analgesic